=== PATIENT | male | born 1960 | race African-American/Black ===

== ENCOUNTER 2016-06-03 22:23 | Emergency (ER) | payer OTHER ==
[~2016-06-03] VITALS: Ht 182.9 cm; Wt 81.2 kg
[~2016-06-03 22:23] MED LIST: ACET325T21 PO; AMLO1CAP12 PO; AMLO5TAB2 PO; ASPI81TA2 PO; ATOR40TA PO; CEFP200T PEG; COLACE GT; DEXT1DRO8 OU; ESCI20TA10 PO; FLUC100T7 PEG; GUAI100L12 PO; GUAI12003 PO; IPRA3AMP23 IH; LANS30TA6; LOSA50TA6 PO; MAGN400O4 GT; MODA100T18 GT; SCOP1PAT TD; VALS160T3 GT
[2016-06-03 23:19] LABS: POTASSIUM ISTAT 3.7 mmol/L (3.5-5.0)
[2016-06-03 23:30] LABS: BILIRUBIN,URINE NEGATIVE (NEG); GLUCOSE,URINE NEGATIVE (NEG); NITRITE,URINE NEGATIVE (NEG); PH,URINE 7.5; PROTEIN,URINE NEGATIVE (NEG-TRACE)
[2016-06-03 23:36] LABS: BACTERIA,URINE 0 /HPF (0-FEW); SQUAMOUS EPITHELIAL CELL,UR OCC /LPF
[2016-06-03] MEDS ORDERED: CIPR500T94 PO (23:42)
--- NOTE | 2016-06-03 23:42 | PHYS DOC ---
Past Medical History Past Medical History: Constipation, CVA, GERD, High Cholesterol, Hypertension, Seizure, Other Additional Past Medical Histor: cerebvasc disease, resp failure, hydrocephalus , dysphagia,epilepsy Past Surgical History: Other Additional Past Surgical Histo: G-tube, neuro stimulator Alcohol Use: None Drug Use: None Adult General Chief Complaint Chief Complaint: PENIS PROBLEM HPI HPI Patient is a 55 year old male who presents with hematuria. Patient was brought to the emergency department by EMS. Patient has history of CVA with chronic debilitated state. Patient is bedbound. Patient has not had any reported issues with urinating this week, however mother states that the patient had problems with urinary retention last week. The patient is a phasic and unable to provide any history. Mother states the patient has not had any fevers and has not appeared to be in any discomfort. Denies any previous history of hematuria. Patient has not had any recent catheterization. Mother brought patient to the emergency department for evaluation of hematuria. Review of Systems Review of Systems Patient aphasic and unable to provide review of systems Allergies Allergies Allergies Coded Allergies Type Severity Reaction Last Updated Verified No Known Drug Allergies 09/30/15 No Physical Exam Physical Exam Constitutional: Alert, aphasic, appears chronically debilitated. [] HENT: Normocephalic, atraumatic, bilateral external ears normal, oropharynx moist, no oral exudates, nose normal. [] Eyes: PERRLA, EOMI, conjunctiva normal, no discharge. [] Neck: Normal range of motion, no tenderness, supple, no stridor. [] Cardiovascular:Heart rate regular rhythm, no murmur [] Lungs & Thorax: Bilateral breath sounds clear to auscultation [] Abdomen: Bowel sounds normal, soft, left-sided G-tube in place, no abdominal tenderness, no masses, no pulsatile masses. : Small spots of dried gross blood in brief and at urethral meatus, no obvious external injury [] Skin: Warm, dry, no erythema, no rash. [] Back: No tenderness, no CVA tenderness. [] Extremities: No tenderness, no cyanosis, no clubbing, ROM intact, no edema. [] Neurologic: Alert, aphasic, does not follow commands. [] Current Patient Data Vital Signs Vital Signs Date Time Temp Pulse Resp B/P Pulse Ox O2 Delivery O2 Flow Rate FiO2 06/03/16 22:30 97.7 75 18 122/89 93 Room Air 97.7 Lab Values Laboratory Tests Test 06/03/16 23:16 06/03/16 23:21 POC Hemoglobin 16.0g/dL (14-18) POC Hematocrit 47% (37-52) POC Sodium 145mmol/L (135-145) POC Potassium 3.7mmol/L (3.5-5.0) POC Chloride 105mmol/L (98-110) POC Total CO2 24mmol/L (23-32) Anion Gap 20mmol/L (6-14) H POC Blood Urea Nitrogen 17mg/dL (8-26) POC Creatinine 0.9mg/dL (0.5-1.4) Glucose Level 104mg/dL (70-99) H POC Ionized Calcium (Elida) 1.22mmol/L (1.13-1.32) Urine Collection Type U cath Urine Color Yellow Urine Clarity Clear Urine pH 7.5 Urine Specific [place] 1.025 Urine Protein Negativemg/dL (NEG-TRACE) Urine Glucose (UA) Negativemg/dL (NEG) Urine Ketones (Stick) Negativemg/dL (NEG) Urine Blood Small (NEG) Urine Nitrite Negative (NEG) Urine Bilirubin Negative (NEG) Urine Urobilinogen Dipstick 1.0mg/dL (0.2 mg/dL) Urine Leukocyte Esterase Small (NEG) Urine RBC 11-20/HPF (0-2) Urine WBC 1-4/HPF (0-4) Urine Squamous Epithelial Cells Occ/LPF Urine Bacteria 0/HPF (0-FEW) Urine Mucus Slight/LPF Laboratory Tests 06/03/16 23:16 EKG EKG Not performed [] Radiology/Procedures Radiology/Procedures Limited bedside bladder ultrasound performed and interpreted by myself: No pelvic free fluid, bladder volume measured at 177 mL Course & Med Decision Making Course & Med Decision Making Pertinent Labs and Imaging studies reviewed. (See chart for details) Patient's metabolic panel showed normal kidney function and patient's catheter urine showed microscopic hematuria with positive leukoesterase raising concern for active infection. Patient will be started on Cipro for treatment. The patient's source of hematuria is likely distal from the bladder. This will likely resolve with medical treatment, however I did recommend to the patient's mother that the patient would need to follow-up with Dr. Mccauley of urology if hematuria persists in the appointment would need to be made in the next 1-2 weeks. Recommended return to emergency department for any worsening symptoms. Patient's mother voiced understanding and in agreement with treatment plan. Dragon Disclaimer Dragon Disclaimer This electronic medical record was generated, in whole or in part, using a voice recognition dictation system. Departure Departure Impression: Primary Impression: Urinary tract infection Additional Impression: Hematuria Disposition: HOME, SELF-CARE Condition: STABLE Referrals: HERMINIO JACOBS (PCP) CAIO MCCAULEY DO Patient Instructions: Urinary Tract Infection Additional Instructions: Be sure to complete antibiotics as prescribed. If you continue to have blood in your urine, is recommended that you contact Dr. Mccauley of urology for follow-up in 1 to 2 weeks. Return to the emergency department for any worsening symptoms. Scripts Ciprofloxacin Hcl (Cipro)500 Mg Tablet1 Tab PO BID #14 TAB Prov:KHOA SANTIAGO MD 06/03/16 Problem Qualifiers Primary Impression: Urinary tract infection Urinary tract infection type: acute cystitis Hematuria presence: with hematuria Qualified Code: N30.01 - Acute cystitis with hematuria KHOA SANTIAGO MD Jun 03, 2016 23:42
[2016-06-04 00:10] VITALS: BP 116/89
== END 2016-06-04 00:18 | disposition home or self-care (01) ==
LOC: ER 22:23
DX: N39.0 Urinary tract infection, site not specified (principal); E78.00 Pure hypercholesterolemia, unspecified; I10 Essential (primary) hypertension; K21.9 Gastro-esophageal reflux disease without esophagitis; G40.909 Epilepsy, unspecified, not intractable, without status epilepticus; Z86.73 Personal history of transient ischemic attack (TIA), and cerebral infarction without residual deficits
CPT/HCPCS: 80047; 81001; 87086; 99284; 99285

== ENCOUNTER 2016-07-27 10:50 | Emergency (ER) | payer OTHER ==
[~2016-07-27] VITALS: Ht 182.9 cm; Wt 81.2 kg
[~2016-07-27 10:50] MED LIST changes: +CIPR500T94 PO
[2016-07-27] MEDS ORDERED: CONTRAST GIVEN MC PRN (11:45)
--- NOTE | 2016-07-27 11:54 | PHYS DOC ---
Past Medical History Past Medical History: Constipation, CVA, GERD, High Cholesterol, Hypertension, Seizure, Other Additional Past Medical Histor: cerebvasc disease, resp failure, hydrocephalus , dysphagia,epilepsy Past Surgical History: Other Additional Past Surgical Histo: G-tube, neuro stimulator Alcohol Use: None Drug Use: None Adult General Chief Complaint Chief Complaint: GTUBE REPLACEMENT/MALFUNCTION HPI HPI Patient is a 56 year old male presenting to the emergency department for evaluation of concern of G-tube malfunction. Family tried injecting feedings into it this morning and most of it hadn't retrograde flow. There is quite a bit of resistance been trying to push saline throughout and a lot of it does come back out on the bed. Family is unsure when the G-tube was last replaced. Review of Systems Review of Systems Unable to obtain due to medical condition Current Medications Current Medications Current Medications Medications (Trade) Dose Ordered Sig/Vin Start Time Stop Time Status Last Admin Dose Admin Fentanyl Citrate (Fentanyl 2ml Vial) 50 mcg 1X ONCE 07/27/16 14:30 07/27/16 14:31 DC 07/27/16 14:30 50 MCG Info (Do NOT chart on this entry -- for MONITORING) 1 each PRN DAILY PRN 07/27/16 11:45 07/29/16 11:44 Iohexol (Omnipaque 300 Mg/ml) 16 ml 1X ONCE 07/27/16 14:30 07/27/16 14:31 DC 07/27/16 14:29 16 ML Iohexol (Omnipaque 350 Mg/ml) 100 ml 1X ONCE 07/27/16 12:15 07/27/16 12:16 DC 07/27/16 12:15 100 ML Midazolam HCl (Versed) 1 mg 1X ONCE 07/27/16 14:30 07/27/16 14:31 DC 07/27/16 14:30 1 MG Allergies Allergies Allergies Coded Allergies Type Severity Reaction Last Updated Verified No Known Drug Allergies 09/30/15 No Physical Exam Physical Exam Constitutional: Well developed, well nourished, no acute distress, non-toxic appearance. [] Abdomen: G-tube in place with no surrounding infection and no abdominal tenderness. Current Patient Data Vital Signs Vital Signs Date Time Temp Pulse Resp B/P (MAP) Pulse Ox O2 Delivery O2 Flow Rate FiO2 07/27/16 14:32 58 14 93 Room Air 07/27/16 11:28 97.5 97.5 Lab Values Laboratory Tests Test 07/27/16 12:50 White Blood Count 6.6 x10^3/uL (4.0-11.0) Red Blood Count 5.24 x10^6/uL (4.30-5.70) Hemoglobin 15.3 g/dL (13.0-17.5) Hematocrit 44.9 % (39.0-53.0) Mean Corpuscular Volume 86 fL (79-100) Mean Corpuscular Hemoglobin 29 pg (25-35) Mean Corpuscular Hemoglobin Concent 34 g/dL (31-37) Red Cell Distribution Width 14.7 % (11.5-14.5) H Platelet Count 249 x10^3/uL (140-400) Neutrophils (%) (Auto) 50 % (31-73) Lymphocytes (%) (Auto) 33 % (24-48) Monocytes (%) (Auto) 12 % (0-9) H Eosinophils (%) (Auto) 3 % (0-3) Basophils (%) (Auto) 1 % (0-3) Neutrophils # (Auto) 3.3 x10^3uL (1.8-7.7) Lymphocytes # (Auto) 2.2 x10^3/uL (1.0-4.8) Monocytes # (Auto) 0.8 x10^3/uL (0.0-1.1) Eosinophils # (Auto) 0.2 x10^3/uL (0.0-0.7) Basophils # (Auto) 0.0 x10^3/uL (0.0-0.2) Sodium Level 141 mmol/L (136-145) Potassium Level 4.4 mmol/L (3.5-5.1) Chloride Level 105 mmol/L (98-107) Carbon Dioxide Level 31 mmol/L (21-32) Anion Gap 5 (6-14) L Blood Urea Nitrogen 13 mg/dL (8-26) Creatinine 0.9 mg/dL (0.7-1.3) Estimated GFR (Cockcroft-Gault) 106.4 BUN/Creatinine Ratio 14 (6-20) Glucose Level 85 mg/dL (70-99) Calcium Level 8.7 mg/dL (8.5-10.1) Total Bilirubin 0.6 mg/dL (0.2-1.0) Aspartate Amino Transferase (AST) 27 U/L (15-37) Alanine Aminotransferase (ALT) 21 U/L (16-63) Alkaline Phosphatase 136 U/L (46-116) H Total Protein 7.7 g/dL (6.4-8.2) Albumin 3.1 g/dL (3.4-5.0) L Albumin/Globulin Ratio 0.7 (1.0-1.7) L Laboratory Tests 07/27/16 12:50 Laboratory Tests 07/27/16 12:50 EKG EKG [] Radiology/Procedures Radiology/Procedures Examination: Single frontal view of the abdomen History: History of NG tube check Comparison: 06/23/2014 Findings 60 cc of Omnipaque 300 was injected through the G-tube. Contrast is visualized in the stomach just around the balloon of the G-tube with some extension of contrast into the first and second part of the duodenum. The bowel gas pattern appears unremarkable. Tubing projects in the right upper quadrant likely a ventricular peritoneal shunt. Spinal stimulator lead identified. Impression: The injected contrast through the G-tube is identified in the stomach with some extension of contrast into the duodenum. DICTATED and SIGNED BY: KEITH MORENO MD DATE: 07/27/16 1244 Course & Med Decision Making Course & Med Decision Making There is some sort of G-tube malfunction and will likely need replacement so IR was called and they are willing to replace it. Patient discharged in stable condition after G-tube replaced Dragon Disclaimer Dragon Disclaimer This electronic medical record was generated, in whole or in part, using a voice recognition dictation system. Departure Departure Impression: Primary Impression: Gastrostomy tube dysfunction Disposition: 01 HOME, SELF-CARE Condition: GOOD Referrals: HERMINIO JACOBS (PCP) Patient Instructions: Gastrostomy Tube, Adult INDER SANDOVAL DO July 27, 2016 11:54
[2016-07-27] MEDS ORDERED: IOHEXOL 350 MG/ML 100 ML VIAL. IJ ONE (12:15)
--- NOTE | 2016-07-27 12:52 | RAD ---
Examination: Single frontal view of the abdomen History: History of NG tube check Comparison: 06/23/2014 Findings 60 cc of Omnipaque 300 was injected through the G-tube. Contrast is visualized in the stomach just around the balloon of the G-tube with some extension of contrast into the first and second part of the duodenum. The bowel gas pattern appears unremarkable. Tubing projects in the right upper quadrant likely a ventricular peritoneal shunt. Spinal stimulator lead identified. Impression: The injected contrast through the G-tube is identified in the stomach with some extension of contrast into the duodenum.
[2016-07-27 13:06] LABS: BASO % 1 % (0-3); EOS % 3 % (0-3); HEMATOCRIT 44.9 % (39.0-53.0); HEMOGLOBIN 15.3 g/dL (13.0-17.5); LYMPH # 2.2 x10^3/uL (1.0-4.8); LYMPH % 33 % (24-48); MEAN CORPUSCULAR HEMOGLOBIN 29 pg (25-35); MEAN CORPUSCULAR HGB CONC 34 g/dL (31-37); MEAN CORPUSCULAR VOLUME 86 fL (79-100); MONO % 12 % (0-9); NEUT % 50 % (31-73); PLATELET COUNT 249 x10^3/uL (140-400); RED BLOOD COUNT 5.24 x10^6/uL (4.30-5.70); RED CELL DISTRIBUTION WIDTH 14.7 % (11.5-14.5); WHITE BLOOD COUNT 6.6 x10^3/uL (4.0-11.0)
[2016-07-27 13:21] LABS: CALCIUM 8.7 mg/dL (8.5-10.1); CREATININE 0.9 mg/dL (0.7-1.3); GFR 106.4; POTASSIUM 4.4 mmol/L (3.5-5.1)
[2016-07-27 13:24] LABS: ALBUMIN 3.1 g/dL (3.4-5.0); ALBUMIN/GLOBULIN RATIO 0.7 (1.0-1.7); TOTAL BILIRUBIN 0.6 mg/dL (0.2-1.0); TOTAL PROTEIN 7.7 g/dL (6.4-8.2)
[2016-07-27] MEDS ORDERED: IOHEXOL 300 MG/ML 50 ML VIAL. ONE (13:37)
[2016-07-27] MEDS ORDERED: fentaNYL PF VIAL 100 MCG/2 ML VIAL ONE (14:12)
[2016-07-27] MEDS ORDERED: MIDAZOLAM HCL/PF 2 MG/2 ML VIAL. ONE (14:12)
[2016-07-27 14:18] VITALS: BP 114/58
[2016-07-27 14:23] VITALS: BP 117/84
[2016-07-27] MEDS ORDERED: fentaNYL PF VIAL 100 MCG/2 ML VIAL IV ONE (14:30)
[2016-07-27] MEDS ORDERED: IOHEXOL 300 MG/ML 50 ML VIAL. IART ONE (14:30)
[2016-07-27] MEDS ORDERED: MIDAZOLAM HCL/PF 2 MG/2 ML VIAL. IV ONE (14:30)
[2016-07-27 14:32] VITALS: BP 108/81
--- NOTE | 2016-07-27 14:42 | PDOC ---
MODERATE SEDATION ASSESSMENT RISKS/ALTERNATIVES Risks/Alternatives Risks and alternatives of this type of sedation and procedure discussed with: RISK/ALTERNATIVES: Sig. Other (Mother) H & P ON CHART H & P H & P on chart and reviewed for co-morbid conditions and appropriate labs. H&P ON CHART: Yes STATUS PREG STATUS ASSESSED: N/A MEDS/ALLERGIES REVIEWED Meds/Allergies Reviewed Medications and Allergies including time and route of recently administered narcotics and sedatives. MEDS/ALLERGIES REVIEWED: Yes ASA RATING ASA RATING: III AIRWAY ASSESSMENT Airway Assessment Airway patency, oral function limitations, presence of caps, crowns, dentures, partials, and ability to extend neck assessed. AIRWAY ASSESSMENT: Yes MALLAMPATI SCORE MALLAMPATI SCORE: II PRE-SEDATION ASSESSMENT PRE-SEDATION ASSESSMENT: Yes NEIDA WISE MD July 27, 2016 14:42
--- NOTE | 2016-07-27 14:43 | PDOC1 ---
IR Pre-Procedure H&P-Dr. Pierce H&P Update No significant change from Dr Haider ED H&P done earlier today. Nonfunctioning G-tube. Fluoro guided G-tube replacement requested.. NEIDA WISE MD July 27, 2016 14:43
--- NOTE | 2016-07-27 14:47 | PDOC ---
Exam Project Management Instructor Project Management Instructor Orin Electro Mechanical Solar Technician Electro Mechanical Solar Technician V [place] Pre-Procedure Diagnosis Pre-Procedure Diagnosis 56 YO male s/p CVA, with nonfunctioning G-tube. Post-Procedure Diagnosis Post-Procedure Diagnosis Same Procedure Performed Procedure Performed Fluoro guided G-tube replacement Type of Anesthesia Type of Anesthesia Mod sedation Estimated Blood Loss EBL: Trace Specimens Specimans 24F GEMMA G-tube removed. Drain/Tubes Drains/Tubes 24F GEMMA G-tube inserted Condition of Patient Condition of Patient No change. No apparent complication. Disposition Disposition From IR return to ED for recovery. Discharge from ED with Mother, if no problems. OK to use G-tube. Full report to follow. NEIDA WISE MD July 27, 2016 14:47
[2016-07-27 15:30] VITALS: BP 122/89
--- NOTE | 2016-07-28 06:35 | RAD ---
Fluoroscopy guided gastrostomy tube replacement Indication: 56-year-old male status post CVA, with poorly functioning G-tube. Image guided G-tube replacement has been requested. Anesthesia: 21 minutes moderate sedation was provided utilizing a total of 1 mg Versed and 50 mcg fentanyl, IV. The patient was appropriately monitored by a qualified independent observer throughout the time of moderate sedation. Contrast material: 16 cc Omnipaque 300 Fluoroscopy time: 3.9 minutes. 3 fluoroscopic spot images were obtained. Kerma-area Product: 18 Gycm2 Procedure: Informed consent was obtained from the patient's mother. He was placed supine on the angiography table. Left upper quadrant of abdomen was prepped and draped in the usual sterile fashion. Moderate sedation was provided with IV Versed and fentanyl. A small amount of Omnipaque 300 was injected through the patient's indwelling poorly functioning gastrostomy tube. A fluoroscopic spot image was obtained, which documented intraluminal position of the G-tube tip. Using aseptic technique, a road runner guidewire was advanced through the G-tube and was coiled within proximal stomach. Retention balloon was deflated, and the indwelling, poorly functioning 24 [place] GEMMA G-tube was removed over the Roadrunner wire. An 8 mm x 40 mm conquest METAL TANK BUILDER balloon was advanced over the Roadrunner wire and was utilized to perform balloon dilatation of the percutaneous tract to a peak pressure of 10 gricelda. The METAL TANK BUILDER balloon was then deflated and removed. A new 24 [place] GEMMA G-tube was then advanced over the Roadrunner wire into gastric lumen. Intraluminal position of the new G-tube tip was confirmed with contrast injection and fluoroscopic spot image. The retention balloon was inflated with 8 cc sterile water. A sterile dressing was applied. Patient tolerated the procedure well without apparent complication. Impression: Successful, uneventful fluoroscopy guided gastrostomy tube replacement, as described. A new 24 [place] GEMMA G-tube lies in good position, and is ready for immediate use.
== END 2016-07-27 16:00 | disposition home or self-care (01) ==
LOC: ER 10:50
DX: K94.23 Gastrostomy malfunction (principal); E78.00 Pure hypercholesterolemia, unspecified; G40.909 Epilepsy, unspecified, not intractable, without status epilepticus; I10 Essential (primary) hypertension; K21.9 Gastro-esophageal reflux disease without esophagitis; Z86.73 Personal history of transient ischemic attack (TIA), and cerebral infarction without residual deficits; Y83.8 Other surgical procedures as the cause of abnormal reaction of the patient, or of later complication, without mention of misadventure at the time of the procedure; Y92.89 Other specified places as the place of occurrence of the external cause
CPT/HCPCS: 36415; 49450; 74000; 80053; 85027; 96374; 96375; 99285; C1725; C1769; J2250; J3010; Q9967

== ENCOUNTER 2018-05-29 20:56 | Inpatient (IN) | payer OTHER ==
[~2018-05-29] VITALS: Ht 182.9 cm; Wt 78.0 kg
[~2018-05-29 20:56] MED LIST changes: +AMLO5TAB10 PO; -AMLO5TAB2 PO; +ASPI-630 PO; -ASPI81TA2 PO; -ESCI20TA10 PO; +LEXAPRO20 MG PO; +LOSA-73 PO; -LOSA50TA6 PO; -MAGN400O4 GT; +MAGN400O7 GT; -MODA100T18 GT; +MODA100T26 GT; +OMEPRAZOLE; -SCOP1PAT TD; +SCOP1PAT11 TD; +SCOP1PAT11 TP
[2018-05-29] MEDS ORDERED: IV NORMAL SALINE 1000ML BAG 1,000 ML IV SCH (22:00)
[2018-05-29] MEDS ORDERED: IBUPROFEN 100 MG/5 ML ORAL.SUSP. PO ONE (22:00)
[2018-05-29 22:30] LABS: BASO % 0 % (0-3); EOS % 0 % (0-3); HEMATOCRIT 46.6 % (39.0-53.0); HEMOGLOBIN 15.1 g/dL (13.0-17.5); LYMPH # 1.4 x10^3/uL (1.0-4.8); LYMPH % 9 % (24-48); MEAN CORPUSCULAR HEMOGLOBIN 28 pg (25-35); MEAN CORPUSCULAR HGB CONC 32 g/dL (31-37); MEAN CORPUSCULAR VOLUME 87 fL (79-100); MONO # 1.4 x10^3/uL (0.0-1.1); MONO % 9 % (0-9); NEUT # 12.8 x10^3uL (1.8-7.7); NEUT % 82 % (31-73); PLATELET COUNT 269 x10^3/uL (140-400); RED BLOOD COUNT 5.33 x10^6/uL (4.30-5.70); RED CELL DISTRIBUTION WIDTH 14.4 % (11.5-14.5); WHITE BLOOD COUNT 15.6 x10^3/uL (4.0-11.0)
[2018-05-29 22:34] LABS: INFLUENZA A PATIENT NEGATIVE (NEGATIVE); INFLUENZA B PATIENT NEGATIVE (NEGATIVE)
[2018-05-29 22:39] LABS: CALCIUM 9.4 mg/dL (8.5-10.1); CREATININE 1.2 mg/dL (0.7-1.3); GFR 76.1; POTASSIUM 3.8 mmol/L (3.5-5.1)
[2018-05-29 22:54] LABS: ALBUMIN 3.2 g/dL (3.4-5.0); ALBUMIN/GLOBULIN RATIO 0.6 (1.0-1.7); TOTAL BILIRUBIN 1.1 mg/dL (0.2-1.0); TOTAL PROTEIN 8.5 g/dL (6.4-8.2)
[2018-05-29 22:55] LABS: % BASOS 1 % (0-3); % LYMPHS 12 % (24-48); % MONOS 8 % (0-10); % SEGS 79 % (35-66); PLT ESTIMATE ADEQUATE (ADEQUATE); TOXIC GRANULATION SLIGHT
[2018-05-30] MEDS ORDERED: IV NORMAL SALINE 1000ML BAG 1,000 ML IV ONE (01:00)
[2018-05-30 02:12] LABS: BILIRUBIN,URINE NEGATIVE (NEG); CLARITY,URINE CLEAR; COLOR,URINE YELLOW; NITRITE,URINE NEGATIVE (NEG); PROTEIN,URINE NEGATIVE (NEG-TRACE)
[2018-05-30 02:25] LABS: BACTERIA,URINE 0 /HPF (0-FEW)
[2018-05-30 02:26] LABS: AMORPHOUS SEDIMENT,UR PRESENT /HPF
--- NOTE | 2018-05-30 02:27 | PHYS DOC ---
Past Medical History Past Medical History: Constipation, CVA, GERD, High Cholesterol, Hypertension, Seizure, Other Additional Past Medical Histor: cerebvasc disease, resp failure, hydrocephalus , dysphagia,epilepsy Past Surgical History: Other Additional Past Surgical Histo: G-tube, neuro stimulator (BACLOFEN PUMP) Alcohol Use: None Drug Use: None Adult General Chief Complaint Chief Complaint: FEVER HPI HPI Patient is a 57-year-old male who presents with report of high fever at home that had been 106.1 earlier in the evening. Patient was given Tylenol and mother indicates the temperature had come down to a little above 98. She states that she had checked it again a few hours later and temperature was back up to 102. She decided that she better bring the patient in. Patient mother states that patient has had no mental status changes. Review of Systems Review of Systems Constitutional: Positive fever and chills [] Respiratory: Positive cough without shortness of breath [] Cardiovascular: No additional information not addressed in HPI [] GI: No reported vomiting or diarrhea [] Integument: Denies rash or skin lesions [] Neurologic: No reported headache[] Unable to fully assess review of systems as patient is post stroke and nonverbal in ED. Current Medications Current Medications Current Medications Medications (Trade) Dose Ordered Sig/Vin Start Time Stop Time Status Last Admin Dose Admin Ibuprofen (Children'S Motrin) 500 mg 1X ONCE 05/29/18 22:00 05/29/18 22:01 DC 05/29/18 22:04 500 MG Sodium Chloride 1,000 ml @ 1,000 mls/hr 1X ONCE 05/30/18 01:00 05/30/18 01:59 DC 05/30/18 00:27 1,000 MLS/HR Allergies Allergies Allergies Coded Allergies Type Severity Reaction Last Updated Verified No Known Drug Allergies 09/30/15 No Physical Exam Physical Exam Constitutional: Well developed, well nourished, no acute distress, non-toxic appearance. [] HENT: Normocephalic, atraumatic, bilateral external ears normal, oropharynx dry , no oral exudates, nose normal. [] Eyes: PERRLA, EOMI, conjunctiva normal, no discharge. [] Neck: Normal range of motion, no tenderness, supple, no meningismus. [] Cardiovascular: Mildly tachycardic rate with regular rhythm[] Lungs & Thorax: Bilateral breath sounds clear to auscultation [] Abdomen: Bowel sounds normal, soft, no tenderness. [] Skin: Warm, dry, no erythema, no rash. [] Extremities: No tenderness, no cyanosis, no clubbing, ROM intact, no edema. [] Neurologic: Awake and alert. [] Current Patient Data Vital Signs Vital Signs Date Time Temp Pulse Resp B/P (MAP) Pulse Ox O2 Delivery O2 Flow Rate FiO2 05/30/18 00:51 99.9 99.9 05/29/18 23:59 101 18 103/82 (89) 94 Room Air Lab Values Laboratory Tests Test 05/29/18 22:10 05/30/18 01:50 White Blood Count 15.6 x10^3/uL (4.0-11.0) H Red Blood Count 5.33 x10^6/uL (4.30-5.70) Hemoglobin 15.1 g/dL (13.0-17.5) Hematocrit 46.6 % (39.0-53.0) Mean Corpuscular Volume 87 fL (79-100) Mean Corpuscular Hemoglobin 28 pg (25-35) Mean Corpuscular Hemoglobin Concent 32 g/dL (31-37) Red Cell Distribution Width 14.4 % (11.5-14.5) Platelet Count 269 x10^3/uL (140-400) Neutrophils (%) (Auto) 82 % (31-73) H Lymphocytes (%) (Auto) 9 % (24-48) L Monocytes (%) (Auto) 9 % (0-9) Eosinophils (%) (Auto) 0 % (0-3) Basophils (%) (Auto) 0 % (0-3) Neutrophils # (Auto) 12.8 x10^3uL (1.8-7.7) H Lymphocytes # (Auto) 1.4 x10^3/uL (1.0-4.8) Monocytes # (Auto) 1.4 x10^3/uL (0.0-1.1) H Eosinophils # (Auto) 0.0 x10^3/uL (0.0-0.7) Basophils # (Auto) 0.0 x10^3/uL (0.0-0.2) Segmented Neutrophils % 79 % (35-66) H Lymphocytes % 12 % (24-48) L Monocytes % 8 % (0-10) Basophils % 1 % (0-3) Toxic Granulation Slight Platelet Estimate Adequate (ADEQUATE) Sodium Level 140 mmol/L (136-145) Potassium Level 3.8 mmol/L (3.5-5.1) Chloride Level 99 mmol/L (98-107) Carbon Dioxide Level 30 mmol/L (21-32) Anion Gap 11 (6-14) Blood Urea Nitrogen 14 mg/dL (8-26) Creatinine 1.2 mg/dL (0.7-1.3) Estimated GFR (Cockcroft-Gault) 76.1 BUN/Creatinine Ratio 12 (6-20) Glucose Level 106 mg/dL (70-99) H Lactic Acid Level 2.1 mmol/L (0.4-2.0) H Calcium Level 9.4 mg/dL (8.5-10.1) Total Bilirubin 1.1 mg/dL (0.2-1.0) H Aspartate Amino Transferase (AST) 20 U/L (15-37) Alanine Aminotransferase (ALT) 19 U/L (16-63) Alkaline Phosphatase 123 U/L (46-116) H Total Protein 8.5 g/dL (6.4-8.2) H Albumin 3.2 g/dL (3.4-5.0) L Albumin/Globulin Ratio 0.6 (1.0-1.7) L Influenza Type A Antigen Negative (NEGATIVE) Influenza Type B Antigen Negative (NEGATIVE) Urine Collection Type Unknown Urine Color Yellow Urine Clarity Clear Urine pH 6.0 Urine Specific [place] 1.010 Urine Protein Negative mg/dL (NEG-TRACE) Urine Glucose (UA) Negative mg/dL (NEG) Urine Ketones (Stick) Negative mg/dL (NEG) Urine Blood Moderate (NEG) Urine Nitrite Negative (NEG) Urine Bilirubin Negative (NEG) Urine Urobilinogen Dipstick 1.0 mg/dL (0.2 mg/dL) Urine Leukocyte Esterase Small (NEG) Urine RBC 3-5 /HPF (0-2) Urine WBC 5-10 /HPF (0-4) Urine Squamous Epithelial Cells None /LPF Urine Amorphous Sediment Present /HPF Urine Bacteria 0 /HPF (0-FEW) Laboratory Tests 05/29/18 22:10 Laboratory Tests 05/29/18 22:10 EKG EKG [] Radiology/Procedures Radiology/Procedures [] Impressions: Chest x-ray demonstrates no definite acute abnormalities. Course & Med Decision Making Course & Med Decision Making Pertinent Labs and Imaging studies reviewed. (See chart for details) [] Dragon Disclaimer Dragon Disclaimer This electronic medical record was generated, in whole or in part, using a voice recognition dictation system. Departure Departure Impression: Primary Impression: Systemic inflammatory response syndrome (SIRS) Additional Impression: Fever 106 degrees F or over Disposition: 09 ADMITTED INPATIENT Admitting Physician: Maci Mckoy Condition: IMPROVED Referrals: HERMINIO JACOBS (PCP) Problem Qualifiers STEVENSON MONTANA Jr. DO May 30, 2018 02:27
[2018-05-30] MEDS ORDERED: VANCOMYCIN 1GM IVPB FOR OMNI 250 ML IV ONE (03:00)
[2018-05-30] MEDS ORDERED: ONDANSETRON PF 4 MG/2 ML VIAL. IV PRN (03:00)
[2018-05-30] MEDS ORDERED: ACETAMINOPHEN 325 MG TABLET. PO PRN (03:00)
[2018-05-30] MEDS ORDERED: PIPERACILLIN/TAZOBACTAM 3.375 GM in IV NORMAL SALINE 50ML 50 ML IV ONE (03:15)
[2018-05-30] MEDS ORDERED: VANCOMYCIN 1.75 GM in IV NORMAL SALINE 500ML BAG 500 ML IV ONE (04:00)
[2018-05-30] MEDS ORDERED: AMLO10TA8 PO (04:07)
[2018-05-30] MEDS ORDERED: LOSA100T14 PO (04:07)
[2018-05-30 04:17] VITALS: BP 87/64
[2018-05-30] MEDS: VANCOMYCIN PER PHARMACY MC PRN (04:17)
--- NOTE | 2018-05-30 04:19 | NUR ---
Pharmacy Vancomycin Dosing Note S:Consulted to monitor and dose vancomycin started 05/30/18. O:SHELLEY POLANCO is a 57 year old M with FEVER, SIRS . Height: 6 feet, 0 inches Weight: 70.693651 kg [place] Body Weight: 77.60 Adjusted Body Weight: 74.64 Dosing Weight: Actual Other Antibiotics: LABS: Last BUN: 14 Last Creatinine: 1.2 Creatinine Clearance: 69 mL/min Last WBC: 15.6 Last Procalcitonin: Tmax (past 24 hours): 101.9 Microbiology: I/O: Drug Levels: Last level: on at Last dose given 05/30/18 at 0400 Vancomycin Dosing: Loading Dose: 1750 mg x1 Dosing Weight: Actual Target Trough: 10-20 A: Based on: WT AND CRCL P: 1. Begin Vancomycin 1000 mg IV q12h 2. Follow up Trough level on 05/31/18 at 1530 3. Pharmacy will continue to monitor, follow and adjust therapy as needed. HUDSON JOHNS RPH, 05/30/18 0419 Signed: 05/30/18 at 418 by HUDSON JOHNS RPH PHA
[2018-05-30] MEDS: IV NORMAL SALINE 1000ML BAG 1,000 ML IV SCH ×3 (06:22→21:58)
[2018-05-30 07:00] VITALS: BP 90/52
--- NOTE | 2018-05-30 07:50 | PDOC1 ---
History and Physical Date of Admission Date of Admission DATE: 05/30/18 TIME: 07:50 Identification/Chief Complaint Chief Complaint Fever Source Source: Caregiver, Chart review History of Present Illness History of Present Illness Mr Georges is a 57-year-old male w/ PMHx prior CVA, dysphagia s/p PEG, seizures, non-verbal who presents with report of high fever at home that had been 106.1 earlier in the evening per his caregiver. Patient was given Tylenol and mother indicates the temperature had come down to a little above 98. She states that she had checked it again a few hours later and temperature was back up to 102. She decided that she better bring the patient in. Patient mother states that patient has had no mental status changes. Had fever 101.9F here, leukocytosis and negative rapid flu and negative strep A rapid Past Medical History Cardiovascular: HTN, Hyperlipidemia CENTRAL NERVOUS SYSTEM: CVA Past Surgical History Past Surgical History: Other Family History Family History: Hypertension Social History ALCOHOL: none Drugs: None Current Problem List Problem List Problems Medical Problems: (1) Fever 106 degrees F or over Status: Acute (2) Systemic inflammatory response syndrome (SIRS) Status: Acute Current Medications Current Medications Current Medications Sodium Chloride 1,000 ml @ 1,000 mls/hr Q1H IV Last administered on 05/29/18at 22:04; Start 05/29/18 at 22:00; Stop 05/29/18 at 22:59; Status DC Ibuprofen (Children'S Motrin) 500 mg 1X ONCE PO Last administered on at 22:04; Start 05/29/18 at 22:00; Stop 05/29/18 at 22:01; Status DC Sodium Chloride 1,000 ml @ 1,000 mls/hr 1X ONCE IV Last administered on at 00:27; Start 05/30/18 at 01:00; Stop 05/30/18 at 01:59; Status DC Vancomycin HCl 250 ml @ 250 mls/hr 1X ONCE IV ; Start 05/30/18 at 03:00; Stop 05/30/18 at 03:59; Status UNV Piperacillin Sod/ Tazobactam Sod 3.375 gm/Sodium Chloride 50 ml @ 100 mls/hr 1X ONCE IV Last administered on 05/30/18at 03:11; Start 05/30/18 at 03:15; Stop 05/30/18 at 03:44; Status DC Ondansetron HCl (Zofran) 4 mg PRN Q8HRS PRN IV NAUSEA/VOMITING 1ST CHOICE; Start 05/30/18 at 03:00; Stop 05/31/18 at 02:59 Sodium Chloride 1,000 ml @ 100 mls/hr Q10H IV Last administered on 05/30/18at 06:22; Start 05/30/18 at 03:00; Stop 05/31/18 at 02:59 Acetaminophen (Tylenol) 650 mg PRN Q4HRS PRN PO FEVER; Start 05/30/18 at 03:00 ; Stop 05/31/18 at 02:59 Vancomycin HCl 1.75 gm/Sodium Chloride 500 ml @ 250 mls/hr 1X ONCE IV Last administered on 05/30/18at 03:56; Start 05/30/18 at 04:00; Stop 05/30/18 at 05:59 ; Status DC Vancomycin HCl (Vanco Per Pharmacy) 1 each PRN DAILY PRN MC SEE COMMENTS Last administered on 05/30/18at 04:17; Start 05/30/18 at 03:00 Vancomycin HCl 1 gm/Sodium Chloride 250 ml @ 250 mls/hr Q12H IV ; Start at 16:00 Vancomycin HCl (Vancomycin Trough Level) 1 each 1X ONCE MC ; Start 05/31/18 at 15:30; Stop 05/31/18 at 15:31 Active Scripts Active Reported Amlodipine Besylate 10 Mg Tablet 10 Mg PO DAILY Losartan Potassium 100 Mg Tablet 1 Tab PO PRN DAILY PRN Transderm-Scop (Scopolamine) 1 Each Patch.td72 1 Patch TP Q3DAYS Provigil (Modafinil) 100 Mg Tablet 100 Mg GT DAILY Prevacid (Lansoprazole) 30 Mg Tab.rap.dr 30 Mg DAILY Milk Of Magnesia (Magnesium Hydroxide) 400 Mg/5 Ml Oral.susp 400 Mg GT PRN DAILY PRN Lipitor (Atorvastatin Calcium) 40 Mg Tablet 40 Mg PO HS Lexapro (Escitalopram Oxalate) 20 Mg Tablet 20 Mg PO DAILY Duoneb 0.5 Mg-3 Mg/3 Ml Soln (Ipratropium/Albuterol Sulfate) 3 Ml Ampul.neb 3 Ml IH QIDPRN PRN [colace syrup] 25 Ml GT PRN BID PRN Aspirin 81 Mg Tab.chew 81 Mg PO DAILY Artificial Tears Drops (Dextran 70/Hypromellose/Pf) 1 Each Droperette 1 Each OU PRN Q4HRS PRN Allergies Allergies: Coded Allergies: No Known Drug Allergies (Unverified , 09/30/15) ROS Review of System Unable to obtain 2/2 non-verbal status Physical Exam General: Cooperative, No acute distress HEENT: Atraumatic, PERRLA, EOMI, Mucous membr. moist/pink Lungs: Clear to auscultation, Normal air movement Heart: S1S2, RRR Abdomen: Normal bowel sounds, Soft, No tenderness, No hepatosplenomegaly, No masses Rectal Exam: not examined Extremities: No clubbing, No cyanosis, No edema, Normal pulses, No tenderness/ swelling Skin: No rashes, No breakdown, No significant lesion Neuro: Other (Right weakness and hyper-reflexia) Vitals Vitals Vital Signs Date Time Temp Pulse Resp B/P (MAP) Pulse Ox O2 Delivery O2 Flow Rate FiO2 05/30/18 04:17 98.4 74 16 87/64 (72) 94 Room Air 98.4 Labs Labs Laboratory Tests Test 05/29/18 22:10 05/30/18 01:50 05/30/18 05:25 White Blood Count 15.6 x10^3/uL (4.0-11.0) Red Blood Count 5.33 x10^6/uL (4.30-5.70) Hemoglobin 15.1 g/dL (13.0-17.5) Hematocrit 46.6 % (39.0-53.0) Mean Corpuscular Volume 87 fL (79-100) Mean Corpuscular Hemoglobin 28 pg (25-35) Mean Corpuscular Hemoglobin Concent 32 g/dL (31-37) Red Cell Distribution Width 14.4 % (11.5-14.5) Platelet Count 269 x10^3/uL (140-400) Neutrophils (%) (Auto) 82 % (31-73) Lymphocytes (%) (Auto) 9 % (24-48) Monocytes (%) (Auto) 9 % (0-9) Eosinophils (%) (Auto) 0 % (0-3) Basophils (%) (Auto) 0 % (0-3) Neutrophils # (Auto) 12.8 x10^3uL (1.8-7.7) Lymphocytes # (Auto) 1.4 x10^3/uL (1.0-4.8) Monocytes # (Auto) 1.4 x10^3/uL (0.0-1.1) Eosinophils # (Auto) 0.0 x10^3/uL (0.0-0.7) Basophils # (Auto) 0.0 x10^3/uL (0.0-0.2) Segmented Neutrophils % 79 % (35-66) Lymphocytes % 12 % (24-48) Monocytes % 8 % (0-10) Basophils % 1 % (0-3) Toxic Granulation Slight Platelet Estimate Adequate (ADEQUATE) Sodium Level 140 mmol/L (136-145) Potassium Level 3.8 mmol/L (3.5-5.1) Chloride Level 99 mmol/L (98-107) Carbon Dioxide Level 30 mmol/L (21-32) Anion Gap 11 (6-14) Blood Urea Nitrogen 14 mg/dL (8-26) Creatinine 1.2 mg/dL (0.7-1.3) Estimated GFR (Cockcroft-Gault) 76.1 BUN/Creatinine Ratio 12 (6-20) Glucose Level 106 mg/dL (70-99) Lactic Acid Level 2.1 mmol/L (0.4-2.0) 1.0 mmol/L (0.4-2.0) Calcium Level 9.4 mg/dL (8.5-10.1) Total Bilirubin 1.1 mg/dL (0.2-1.0) Aspartate Amino Transf (AST/SGOT) 20 U/L (15-37) Alanine Aminotransferase (ALT/SGPT) 19 U/L (16-63) Alkaline Phosphatase 123 U/L (46-116) Total Protein 8.5 g/dL (6.4-8.2) Albumin 3.2 g/dL (3.4-5.0) Albumin/Globulin Ratio 0.6 (1.0-1.7) Influenza Type A Antigen Negative (NEGATIVE) Influenza Type B Antigen Negative (NEGATIVE) Urine Collection Type Unknown Urine Color Yellow Urine Clarity Clear Urine pH 6.0 Urine Specific [place] 1.010 Urine Protein Negative mg/dL (NEG-TRACE) Urine Glucose (UA) Negative mg/dL (NEG) Urine Ketones (Stick) Negative mg/dL (NEG) Urine Blood Moderate (NEG) Urine Nitrite Negative (NEG) Urine Bilirubin Negative (NEG) Urine Urobilinogen Dipstick 1.0 mg/dL (0.2 mg/dL) Urine Leukocyte Esterase Small (NEG) Urine RBC 3-5 /HPF (0-2) Urine WBC 5-10 /HPF (0-4) Urine Squamous Epithelial Cells None /LPF Urine Amorphous Sediment Present /HPF Urine Bacteria 0 /HPF (0-FEW) Laboratory Tests Test 05/29/18 22:10 05/30/18 01:50 05/30/18 05:25 White Blood Count 15.6 x10^3/uL (4.0-11.0) Red Blood Count 5.33 x10^6/uL (4.30-5.70) Hemoglobin 15.1 g/dL (13.0-17.5) Hematocrit 46.6 % (39.0-53.0) Mean Corpuscular Volume 87 fL (79-100) Mean Corpuscular Hemoglobin 28 pg (25-35) Mean Corpuscular Hemoglobin Concent 32 g/dL (31-37) Red Cell Distribution Width 14.4 % (11.5-14.5) Platelet Count 269 x10^3/uL (140-400) Neutrophils (%) (Auto) 82 % (31-73) Lymphocytes (%) (Auto) 9 % (24-48) Monocytes (%) (Auto) 9 % (0-9) Eosinophils (%) (Auto) 0 % (0-3) Basophils (%) (Auto) 0 % (0-3) Neutrophils # (Auto) 12.8 x10^3uL (1.8-7.7) Lymphocytes # (Auto) 1.4 x10^3/uL (1.0-4.8) Monocytes # (Auto) 1.4 x10^3/uL (0.0-1.1) Eosinophils # (Auto) 0.0 x10^3/uL (0.0-0.7) Basophils # (Auto) 0.0 x10^3/uL (0.0-0.2) Segmented Neutrophils % 79 % (35-66) Lymphocytes % 12 % (24-48) Monocytes % 8 % (0-10) Basophils % 1 % (0-3) Toxic Granulation Slight Platelet Estimate Adequate (ADEQUATE) Sodium Level 140 mmol/L (136-145) Potassium Level 3.8 mmol/L (3.5-5.1) Chloride Level 99 mmol/L (98-107) Carbon Dioxide Level 30 mmol/L (21-32) Anion Gap 11 (6-14) Blood Urea Nitrogen 14 mg/dL (8-26) Creatinine 1.2 mg/dL (0.7-1.3) Estimated GFR (Cockcroft-Gault) 76.1 BUN/Creatinine Ratio 12 (6-20) Glucose Level 106 mg/dL (70-99) Lactic Acid Level 2.1 mmol/L (0.4-2.0) 1.0 mmol/L (0.4-2.0) Calcium Level 9.4 mg/dL (8.5-10.1) Total Bilirubin 1.1 mg/dL (0.2-1.0) Aspartate Amino Transf (AST/SGOT) 20 U/L (15-37) Alanine Aminotransferase (ALT/SGPT) 19 U/L (16-63) Alkaline Phosphatase 123 U/L (46-116) Total Protein 8.5 g/dL (6.4-8.2) Albumin 3.2 g/dL (3.4-5.0) Albumin/Globulin Ratio 0.6 (1.0-1.7) Influenza Type A Antigen Negative (NEGATIVE) Influenza Type B Antigen Negative (NEGATIVE) Urine Collection Type Unknown Urine Color Yellow Urine Clarity Clear Urine pH 6.0 Urine Specific [place] 1.010 Urine Protein Negative mg/dL (NEG-TRACE) Urine Glucose (UA) Negative mg/dL (NEG) Urine Ketones (Stick) Negative mg/dL (NEG) Urine Blood Moderate (NEG) Urine Nitrite Negative (NEG) Urine Bilirubin Negative (NEG) Urine Urobilinogen Dipstick 1.0 mg/dL (0.2 mg/dL) Urine Leukocyte Esterase Small (NEG) Urine RBC 3-5 /HPF (0-2) Urine WBC 5-10 /HPF (0-4) Urine Squamous Epithelial Cells None /LPF Urine Amorphous Sediment Present /HPF Urine Bacteria 0 /HPF (0-FEW) VTE Prophylaxis Ordered VTE Prophylaxis Devices: Yes VTE Pharmacological Prophylaxi: Yes Assessment/Plan Assessment/Plan A/P: Fever - sepsis of unclear etiology at this point. F/u blood cultures. Empiric antibiotics given. Consult ID h/o CVA with rt paralysis. OT for repositioning with contractures htn - cont meds hld - cont meds h/o seizure - not on anti-epileptics constipation - will cont bowel regimen aphasia - nods yes and no dysphagia with PEG - cont tube feeds hydrocephalus - s/p HAND STONECUTTER shunt, appeared to be functioning well with peritoneal drain patent BECKY, vasomotor - will give gentle IVF with h/o ckd2 Plan: vanc and zosyn check cultures check procal supportive care FEN - TF PPX - SCDs, heparin FULL CODE Inpatient for fever of uncertain origin. At least 2 midnights inpatient DENIA RENDON MD May 30, 2018 07:50
--- NOTE | 2018-05-30 08:25 | RAD ---
Indication:FEVER TECHNIQUE:Portable AP chest X-ray COMPARISON:CT chest from 02/28/2018 FINDINGS: Heart is normal in size. Calcified left mediastinal lymph nodes are seen. No pneumothorax or pleural effusion. Visualized bony thorax is within normal limits. IMPRESSION: No acute pulmonary process. Electronically signed by: Pool Willis DO (05/30/2018 8:22 AM) [facility]
--- NOTE | 2018-05-30 10:52 | PDOC ---
Infectious Disease Note Vital Sign Vital Signs Vital Signs Date Time Temp Pulse Resp B/P (MAP) Pulse Ox O2 Delivery O2 Flow Rate FiO2 05/30/18 07:00 96.1 64 14 90/52 (65) 92 Room Air 96.1 Labs Lab Laboratory Tests Test 05/29/18 22:10 05/30/18 01:50 05/30/18 05:25 White Blood Count 15.6 x10^3/uL (4.0-11.0) Red Blood Count 5.33 x10^6/uL (4.30-5.70) Hemoglobin 15.1 g/dL (13.0-17.5) Hematocrit 46.6 % (39.0-53.0) Mean Corpuscular Volume 87 fL (79-100) Mean Corpuscular Hemoglobin 28 pg (25-35) Mean Corpuscular Hemoglobin Concent 32 g/dL (31-37) Red Cell Distribution Width 14.4 % (11.5-14.5) Platelet Count 269 x10^3/uL (140-400) Neutrophils (%) (Auto) 82 % (31-73) Lymphocytes (%) (Auto) 9 % (24-48) Monocytes (%) (Auto) 9 % (0-9) Eosinophils (%) (Auto) 0 % (0-3) Basophils (%) (Auto) 0 % (0-3) Neutrophils # (Auto) 12.8 x10^3uL (1.8-7.7) Lymphocytes # (Auto) 1.4 x10^3/uL (1.0-4.8) Monocytes # (Auto) 1.4 x10^3/uL (0.0-1.1) Eosinophils # (Auto) 0.0 x10^3/uL (0.0-0.7) Basophils # (Auto) 0.0 x10^3/uL (0.0-0.2) Segmented Neutrophils % 79 % (35-66) Lymphocytes % 12 % (24-48) Monocytes % 8 % (0-10) Basophils % 1 % (0-3) Toxic Granulation Slight Platelet Estimate Adequate (ADEQUATE) Sodium Level 140 mmol/L (136-145) Potassium Level 3.8 mmol/L (3.5-5.1) Chloride Level 99 mmol/L (98-107) Carbon Dioxide Level 30 mmol/L (21-32) Anion Gap 11 (6-14) Blood Urea Nitrogen 14 mg/dL (8-26) Creatinine 1.2 mg/dL (0.7-1.3) Estimated GFR (Cockcroft-Gault) 76.1 BUN/Creatinine Ratio 12 (6-20) Glucose Level 106 mg/dL (70-99) Lactic Acid Level 2.1 mmol/L (0.4-2.0) 1.0 mmol/L (0.4-2.0) Calcium Level 9.4 mg/dL (8.5-10.1) Total Bilirubin 1.1 mg/dL (0.2-1.0) Aspartate Amino Transf (AST/SGOT) 20 U/L (15-37) Alanine Aminotransferase (ALT/SGPT) 19 U/L (16-63) Alkaline Phosphatase 123 U/L (46-116) Total Protein 8.5 g/dL (6.4-8.2) Albumin 3.2 g/dL (3.4-5.0) Albumin/Globulin Ratio 0.6 (1.0-1.7) Influenza Type A Antigen Negative (NEGATIVE) Influenza Type B Antigen Negative (NEGATIVE) Group A Streptococcus Rapid Negative (NEGATIVE) Urine Collection Type Unknown Urine Color Yellow Urine Clarity Clear Urine pH 6.0 Urine Specific [place] 1.010 Urine Protein Negative mg/dL (NEG-TRACE) Urine Glucose (UA) Negative mg/dL (NEG) Urine Ketones (Stick) Negative mg/dL (NEG) Urine Blood Moderate (NEG) Urine Nitrite Negative (NEG) Urine Bilirubin Negative (NEG) Urine Urobilinogen Dipstick 1.0 mg/dL (0.2 mg/dL) Urine Leukocyte Esterase Small (NEG) Urine RBC 3-5 /HPF (0-2) Urine WBC 5-10 /HPF (0-4) Urine Squamous Epithelial Cells None /LPF Urine Amorphous Sediment Present /HPF Urine Bacteria 0 /HPF (0-FEW) Objective Assessment Fever CVA Leukocytosis h/o HTN Plan Plan of Care vanc and zosyn check cultures check procal supportive care LEVI SINGH MD May 30, 2018 10:52
[2018-05-30 11:00] VITALS: BP 87/48
[2018-05-30 14:56] VITALS: BP 89/64
--- NOTE | 2018-05-30 15:07 | NUR ---
SW following pt for anticipated dc needs. Chart reviewed. Pt lives at home with family, is dependent with ADL's and has 24 hour care. Will continue to follow.
[2018-05-30] MEDS: VANCOMYCIN 1 GM in IV NORMAL SALINE 250ML 250 ML IV SCH (16:22)
--- NOTE | 2018-05-30 18:46 | NUR ---
This nurse received a call from the patient's mother stating that the patient's caregiver had a positive TB skin test today for his routine employment check. His employer sent him to the clinic to obtain a Chest Xray. This roving court reporter informed Dr. Hazel and Dr. Christie, who stated that CXR last night was negative. RN Vasc Tech was also notified, who ordered staff to move patient to negative pressure room as a precaution.
[2018-05-30 19:00] VITALS: BP 95/66
[2018-05-30] MEDS: PIPERACILLIN/TAZOBACTAM 4.5 GM in IV NORMAL SALINE 100ML 100 ML IV SCH (21:57)
[2018-05-30] MEDS: LACTOBACILLUS RHAMNOSUS GG 1 CAPSULE. PO SCH (21:57)
[2018-05-30 23:00] VITALS: BP 84/60
--- NOTE | 2018-05-31 00:37 | CONS ---
DATE OF CONSULTATION: 05/30/2018 REQUESTING PHYSICIAN: Dr. Pina. REASON FOR CONSULTATION: Fever. HISTORY OF PRESENT ILLNESS: This is a 57-year-old gentleman with a history of CVA, who is living at home with the help of the family. The patient was brought in because of apparently he had 106 fever at home. He was noted to have a T-max of 101.9 here. The patient's initial workup showed a white count of 15.6, lactic acid 2.1 and his chest x-ray is unremarkable. His urinalysis is also unremarkable. Influenza screen was negative. The patient has been started on vancomycin and Zosyn. The patient is alert, awake, able to appropriately nod. Not heard any word from his mouth, but he is appropriately nodding to deny nausea, vomiting, diarrhea, chest pain, shortness of breath, abdominal pain, sore throat, headache. 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 SOCIAL HISTORY: Negative for smoking, alcohol, illicit drug use. He is taken care of by family i.e., mother. REVIEW OF SYSTEMS: As per HPI. All other systems reviewed are negative. CURRENT MEDICATIONS: Reviewed. The patient is on vancomycin and Zosyn. ALLERGIES: No known drug allergies. PHYSICAL EXAMINATION: GENERAL: Alert and oriented gentleman, not in distress. VITAL SIGNS: Stable with a T-max of 101.9. HEENT: NAD. Both pupils are round and reacting. No conjunctival lesion, no lesion in the mouth. NECK: Supple, no JVP, no lymphadenopathy. LUNGS: Clear. HEART: S1, S2 regular. ABDOMEN: Benign. EXTREMITIES: No edema or cyanosis. NEUROLOGIC: The patient is a total care. LABORATORY DATA: White count is 15.6, platelets are normal. BUN and creatinine is normal. Urinalysis showed 5-10 wbc. IMPRESSION: 1. Fever, possible viral infection, possible aspiration. 2. Cerebrovascular accident. 3. History of hypertension. 4. History of gastroesophageal reflux disease. 5. Leukocytosis. PLAN: Recommend continue vancomycin and Zosyn for the time being, will see the response. If he continues to be febrile, we will do more further investigation for the time being. Thank you very much, Dr. Pina, for giving me the opportunity to participate in this patient's care. Discussion with Dr. Pina done. LEVI SINGH MD DR: AC/gladis JOB#: [id number] / [id number]
[2018-05-31] MEDS: VANCOMYCIN 1 GM in IV NORMAL SALINE 250ML 250 ML IV SCH ×2 (03:37→18:44)
[2018-05-31 03:42] VITALS: BP 148/99
[2018-05-31 05:19] LABS: BASO % 0 % (0-3); EOS % 1 % (0-3); HEMATOCRIT 43.3 % (39.0-53.0); HEMOGLOBIN 14.1 g/dL (13.0-17.5); LYMPH # 0.7 x10^3/uL (1.0-4.8); LYMPH % 8 % (24-48); MEAN CORPUSCULAR HEMOGLOBIN 29 pg (25-35); MEAN CORPUSCULAR HGB CONC 33 g/dL (31-37); MEAN CORPUSCULAR VOLUME 88 fL (79-100); MONO # 0.4 x10^3/uL (0.0-1.1); MONO % 5 % (0-9); NEUT # 7.8 x10^3uL (1.8-7.7); NEUT % 86 % (31-73); PLATELET COUNT 248 x10^3/uL (140-400); RED BLOOD COUNT 4.93 x10^6/uL (4.30-5.70); RED CELL DISTRIBUTION WIDTH 14.4 % (11.5-14.5)
[2018-05-31] MEDS: PIPERACILLIN/TAZOBACTAM 4.5 GM in IV NORMAL SALINE 100ML 100 ML IV SCH ×5 (05:51→17:09)
[2018-05-31 07:00] VITALS: BP 120/85
[2018-05-31 07:52] LABS: CREATININE 0.9 mg/dL (0.7-1.3); POTASSIUM 4.3 mmol/L (3.5-5.1)
--- NOTE | 2018-05-31 08:04 | PDOC ---
PROGRESS NOTES Chief Complaint Chief Complaint A/P: Fever - sepsis of unclear etiology at this point. F/u blood cultures. Empiric antibiotics given. Consult ID h/o CVA with rt paralysis. OT for repositioning with contractures htn - cont meds hld - cont meds h/o seizure - not on anti-epileptics constipation - will cont bowel regimen aphasia - nods yes and no dysphagia with PEG - cont tube feeds hydrocephalus - s/p ENGINE REPA[employer]ER [employer]ICE shunt, appeared to be functioning well with peritoneal drain patent BECKY, vasomotor - will give gentle IVF with h/o ckd2 Plan: vanc and zosyn check cultures check procal supportive care FEN - TF PPX - SCDs, heparin FULL CODE Inpatient for fever of uncertain origin. At least 2 midnights inpatient History of Present Illness History of Present Illness Mr Georges is a 57-year-old male w/ PMHx prior CVA, dysphagia s/p PEG, seizures, non-verbal who presents with report of high fever at home that had been 106.1 earlier in the evening per his caregiver. Patient was given Tylenol and mother indicates the temperature had come down to a little above 98. She states that she had checked it again a few hours later and temperature was back up to 102. She decided that she better bring the patient in. Patient mother states that patient has had no mental status changes. Had fever 101.9F here, leukocytosis and negative rapid flu and negative strep A rapid. Procalcitonin elevated. CXR not significant He is covered by a blanket this morning. Spikes a fever after I leave the room. Plan: ID consulted Cont empiric antibiotics Check blood cultures Repeat flu swab TB precautions until d/c'd by ID Vitals Vitals Vital Signs Date Time Temp Pulse Resp B/P (MAP) Pulse Ox O2 Delivery O2 Flow Rate FiO2 05/31/18 07:00 98.1 87 20 120/85 (97) 96 Room Air 98.1 Physical Exam General: Cooperative, No acute distress Lungs: Clear, Other Abdomen: Normal bowel sounds, Soft, No tenderness, No hepatosplenomegaly, No masses Extremities: No clubbing, No cyanosis, No edema, Normal pulses, No tenderness/ swelling Skin: No rashes, No breakdown, No significant lesion Labs LABS Laboratory Tests Test 05/31/18 04:25 White Blood Count 9.0 x10^3/uL (4.0-11.0) Red Blood Count 4.93 x10^6/uL (4.30-5.70) Hemoglobin 14.1 g/dL (13.0-17.5) Hematocrit 43.3 % (39.0-53.0) Mean Corpuscular Volume 88 fL (79-100) Mean Corpuscular Hemoglobin 29 pg (25-35) Mean Corpuscular Hemoglobin Concent 33 g/dL (31-37) Red Cell Distribution Width 14.4 % (11.5-14.5) Platelet Count 248 x10^3/uL (140-400) Neutrophils (%) (Auto) 86 % (31-73) Lymphocytes (%) (Auto) 8 % (24-48) Monocytes (%) (Auto) 5 % (0-9) Eosinophils (%) (Auto) 1 % (0-3) Basophils (%) (Auto) 0 % (0-3) Neutrophils # (Auto) 7.8 x10^3uL (1.8-7.7) Lymphocytes # (Auto) 0.7 x10^3/uL (1.0-4.8) Monocytes # (Auto) 0.4 x10^3/uL (0.0-1.1) Eosinophils # (Auto) 0.0 x10^3/uL (0.0-0.7) Basophils # (Auto) 0.0 x10^3/uL (0.0-0.2) Sodium Level 142 mmol/L (136-145) Potassium Level 4.3 mmol/L (3.5-5.1) Chloride Level 104 mmol/L (98-107) Carbon Dioxide Level 27 mmol/L (21-32) Anion Gap 11 (6-14) Blood Urea Nitrogen 11 mg/dL (8-26) Creatinine 0.9 mg/dL (0.7-1.3) Estimated GFR (Cockcroft-Gault) 106.0 Glucose Level 84 mg/dL (70-99) Calcium Level 9.0 mg/dL (8.5-10.1) Assessment and Plan Assessmemt and Plan Problems Medical Problems: (1) Fever 106 degrees F or over Status: Acute (2) Systemic inflammatory response syndrome (SIRS) Status: Acute Comment Review of Relevant I have reviewed the following items madelyn (where applicable) has been applied. Labs Laboratory Tests Test 05/29/18 22:10 05/30/18 01:50 05/30/18 05:25 05/31/18 04:25 White Blood Count 15.6 x10^3/uL (4.0-11.0) 9.0 x10^3/uL (4.0-11.0) Red Blood Count 5.33 x10^6/uL (4.30-5.70) 4.93 x10^6/uL (4.30-5.70) Hemoglobin 15.1 g/dL (13.0-17.5) 14.1 g/dL (13.0-17.5) Hematocrit 46.6 % (39.0-53.0) 43.3 % (39.0-53.0) Mean Corpuscular Volume 87 fL (79-100) 88 fL (79-100) Mean Corpuscular Hemoglobin 28 pg (25-35) 29 pg (25-35) Mean Corpuscular Hemoglobin Concent 32 g/dL (31-37) 33 g/dL (31-37) Red Cell Distribution Width 14.4 % (11.5-14.5) 14.4 % (11.5-14.5) Platelet Count 269 x10^3/uL (140-400) 248 x10^3/uL (140-400) Neutrophils (%) (Auto) 82 % (31-73) 86 % (31-73) Lymphocytes (%) (Auto) 9 % (24-48) 8 % (24-48) Monocytes (%) (Auto) 9 % (0-9) 5 % (0-9) Eosinophils (%) (Auto) 0 % (0-3) 1 % (0-3) Basophils (%) (Auto) 0 % (0-3) 0 % (0-3) Neutrophils # (Auto) 12.8 x10^3uL (1.8-7.7) 7.8 x10^3uL (1.8-7.7) Lymphocytes # (Auto) 1.4 x10^3/uL (1.0-4.8) 0.7 x10^3/uL (1.0-4.8) Monocytes # (Auto) 1.4 x10^3/uL (0.0-1.1) 0.4 x10^3/uL (0.0-1.1) Eosinophils # (Auto) 0.0 x10^3/uL (0.0-0.7) 0.0 x10^3/uL (0.0-0.7) Basophils # (Auto) 0.0 x10^3/uL (0.0-0.2) 0.0 x10^3/uL (0.0-0.2) Segmented Neutrophils % 79 % (35-66) Lymphocytes % 12 % (24-48) Monocytes % 8 % (0-10) Basophils % 1 % (0-3) Toxic Granulation Slight Platelet Estimate Adequate (ADEQUATE) Sodium Level 140 mmol/L (136-145) 142 mmol/L (136-145) Potassium Level 3.8 mmol/L (3.5-5.1) 4.3 mmol/L (3.5-5.1) Chloride Level 99 mmol/L (98-107) 104 mmol/L (98-107) Carbon Dioxide Level 30 mmol/L (21-32) 27 mmol/L (21-32) Anion Gap 11 (6-14) 11 (6-14) Blood Urea Nitrogen 14 mg/dL (8-26) 11 mg/dL (8-26) Creatinine 1.2 mg/dL (0.7-1.3) 0.9 mg/dL (0.7-1.3) Estimated GFR (Cockcroft-Gault) 76.1 106.0 BUN/Creatinine Ratio 12 (6-20) Glucose Level 106 mg/dL (70-99) 84 mg/dL (70-99) Lactic Acid Level 2.1 mmol/L (0.4-2.0) 1.0 mmol/L (0.4-2.0) Calcium Level 9.4 mg/dL (8.5-10.1) 9.0 mg/dL (8.5-10.1) Total Bilirubin 1.1 mg/dL (0.2-1.0) Aspartate Amino Transf (AST/SGOT) 20 U/L (15-37) Alanine Aminotransferase (ALT/SGPT) 19 U/L (16-63) Alkaline Phosphatase 123 U/L (46-116) Total Protein 8.5 g/dL (6.4-8.2) Albumin 3.2 g/dL (3.4-5.0) Albumin/Globulin Ratio 0.6 (1.0-1.7) Influenza Type A Antigen Negative (NEGATIVE) Influenza Type B Antigen Negative (NEGATIVE) Group A Streptococcus Rapid Negative (NEGATIVE) Urine Collection Type Unknown Urine Color Yellow Urine Clarity Clear Urine pH 6.0 Urine Specific [place] 1.010 Urine Protein Negative mg/dL (NEG-TRACE) Urine Glucose (UA) Negative mg/dL (NEG) Urine Ketones (Stick) Negative mg/dL (NEG) Urine Blood Moderate (NEG) Urine Nitrite Negative (NEG) Urine Bilirubin Negative (NEG) Urine Urobilinogen Dipstick 1.0 mg/dL (0.2 mg/dL) Urine Leukocyte Esterase Small (NEG) Urine RBC 3-5 /HPF (0-2) Urine WBC 5-10 /HPF (0-4) Urine Squamous Epithelial Cells None /LPF Urine Amorphous Sediment Present /HPF Urine Bacteria 0 /HPF (0-FEW) Procalcitonin 0.37 ng/mL (0.00-0.10) Laboratory Tests Test 05/31/18 04:25 White Blood Count 9.0 x10^3/uL (4.0-11.0) Red Blood Count 4.93 x10^6/uL (4.30-5.70) Hemoglobin 14.1 g/dL (13.0-17.5) Hematocrit 43.3 % (39.0-53.0) Mean Corpuscular Volume 88 fL (79-100) Mean Corpuscular Hemoglobin 29 pg (25-35) Mean Corpuscular Hemoglobin Concent 33 g/dL (31-37) Red Cell Distribution Width 14.4 % (11.5-14.5) Platelet Count 248 x10^3/uL (140-400) Neutrophils (%) (Auto) 86 % (31-73) Lymphocytes (%) (Auto) 8 % (24-48) Monocytes (%) (Auto) 5 % (0-9) Eosinophils (%) (Auto) 1 % (0-3) Basophils (%) (Auto) 0 % (0-3) Neutrophils # (Auto) 7.8 x10^3uL (1.8-7.7) Lymphocytes # (Auto) 0.7 x10^3/uL (1.0-4.8) Monocytes # (Auto) 0.4 x10^3/uL (0.0-1.1) Eosinophils # (Auto) 0.0 x10^3/uL (0.0-0.7) Basophils # (Auto) 0.0 x10^3/uL (0.0-0.2) Sodium Level 142 mmol/L (136-145) Potassium Level 4.3 mmol/L (3.5-5.1) Chloride Level 104 mmol/L (98-107) Carbon Dioxide Level 27 mmol/L (21-32) Anion Gap 11 (6-14) Blood Urea Nitrogen 11 mg/dL (8-26) Creatinine 0.9 mg/dL (0.7-1.3) Estimated GFR (Cockcroft-Gault) 106.0 Glucose Level 84 mg/dL (70-99) Calcium Level 9.0 mg/dL (8.5-10.1) Microbiology 05/29/18 Blood Culture - Preliminary, Resulted NO GROWTH AFTER 1 DAY Medications Current Medications Sodium Chloride 1,000 ml @ 1,000 mls/hr Q1H IV Last administered on 05/29/18at 22:04; Start 05/29/18 at 22:00; Stop 05/29/18 at 22:59; Status DC Ibuprofen (Children'S Motrin) 500 mg 1X ONCE PO Last administered on at 22:04; Start 05/29/18 at 22:00; Stop 05/29/18 at 22:01; Status DC Sodium Chloride 1,000 ml @ 1,000 mls/hr 1X ONCE IV Last administered on at 00:27; Start 05/30/18 at 01:00; Stop 05/30/18 at 01:59; Status DC Vancomycin HCl 250 ml @ 250 mls/hr 1X ONCE IV ; Start 05/30/18 at 03:00; Stop 05/30/18 at 03:59; Status UNV Piperacillin Sod/ Tazobactam Sod 3.375 gm/Sodium Chloride 50 ml @ 100 mls/hr 1X ONCE IV Last administered on 05/30/18at 03:11; Start 05/30/18 at 03:15; Stop 05/30/18 at 03:44; Status DC Ondansetron HCl (Zofran) 4 mg PRN Q8HRS PRN IV NAUSEA/VOMITING 1ST CHOICE; Start 05/30/18 at 03:00; Stop 05/31/18 at 02:59; Status DC Sodium Chloride 1,000 ml @ 100 mls/hr Q10H IV Last administered on 05/30/18at 21:58; Start 05/30/18 at 03:00; Stop 05/31/18 at 02:59; Status DC Acetaminophen (Tylenol) 650 mg PRN Q4HRS PRN PO FEVER; Start 05/30/18 at 03:00 ; Stop 05/31/18 at 02:59; Status DC Vancomycin HCl 1.75 gm/Sodium Chloride 500 ml @ 250 mls/hr 1X ONCE IV Last administered on 05/30/18at 03:56; Start 05/30/18 at 04:00; Stop 05/30/18 at 05:59 ; Status DC Vancomycin HCl (Vanco Per Pharmacy) 1 each PRN DAILY PRN MC SEE COMMENTS Last administered on 05/30/18at 04:17; Start 05/30/18 at 03:00 Vancomycin HCl 1 gm/Sodium Chloride 250 ml @ 250 mls/hr Q12H IV Last administered on 05/31/18at 03:37; Start 05/30/18 at 16:00 Vancomycin HCl (Vancomycin Trough Level) 1 each 1X ONCE MC ; Start 05/31/18 at 15:30; Stop 05/31/18 at 15:31 Piperacillin Sod/ Tazobactam Sod 4.5 gm/Sodium Chloride 100 ml @ 200 mls/hr Q6HRS IV Last administered on 05/31/18at 05:51; Start 05/30/18 at 18:00 Lactobacillus Rhamnosus (Culturelle) 1 cap BID PO Last administered on at 21:57; Start 05/30/18 at 21:00 Active Scripts Active Reported Amlodipine Besylate 10 Mg Tablet 10 Mg PO DAILY Losartan Potassium 100 Mg Tablet 1 Tab PO PRN DAILY PRN Transderm-Scop (Scopolamine) 1 Each Patch.td72 1 Patch TP Q3DAYS Provigil (Modafinil) 100 Mg Tablet 100 Mg GT DAILY Prevacid (Lansoprazole) 30 Mg Tab.rap.dr 30 Mg DAILY Milk Of Magnesia (Magnesium Hydroxide) 400 Mg/5 Ml Oral.susp 400 Mg GT PRN DAILY PRN Lipitor (Atorvastatin Calcium) 40 Mg Tablet 40 Mg PO HS Lexapro (Escitalopram Oxalate) 20 Mg Tablet 20 Mg PO DAILY Duoneb 0.5 Mg-3 Mg/3 Ml Soln (Ipratropium/Albuterol Sulfate) 3 Ml Ampul.neb 3 Ml IH QIDPRN PRN [colace syrup] 25 Ml GT PRN BID PRN Aspirin 81 Mg Tab.chew 81 Mg PO DAILY Artificial Tears Drops (Dextran 70/Hypromellose/Pf) 1 Each Droperette 1 Each OU PRN Q4HRS PRN Vitals/I & O Vital Sign - Last 24 Hours 05/30/18 05/30/18 05/30/18 05/30/18 11:00 14:56 19:00 20:10 Temp 97.7 97.9 99.1 97.7 97.9 99.1 Pulse 59 18 72 Resp 14 16 22 B/P (MAP) 87/48 (61) 89/64 (72) 95/66 (76) Pulse Ox 95 94 93 O2 Delivery Room Air Room Air Room Air Room Air 05/30/18 05/31/18 05/31/18 23:00 03:42 07:00 Temp 99.0 98.1 98.1 99.0 98.1 98.1 Pulse 70 80 87 Resp 18 22 20 B/P (MAP) 84/60 (68) 148/99 (115) 120/85 (97) Pulse Ox 95 92 96 O2 Delivery Room Air Room Air Room Air Intake and Output 05/30/18 05/30/18 05/31/18 15:00 23:00 07:00 Intake Total 760 ml 100 ml Output Total 0 ml Balance 760 ml 100 ml Nutrition Consultation Dietary Evaluation: Recommendations by RD: PPN/TPN Comments: Recommend Jevity 1.5, 230mL (1 italo) 5x/day w/ 250mL flushes w/ each bolus. Expected Outcomes/Goals: tolerate bolus TF TF to meet >75% estimated energy/protein needs Malnutrition Findings: Food and Nutrition Intake (Mod: <75% est energy req 7days Body Fat Depletion (Non Severe: Mod to Severe Weight Status: Appropriate DENIA RENDON MD May 31, 2018 08:04
[2018-05-31] MEDS: LACTOBACILLUS RHAMNOSUS GG 1 CAPSULE. PO SCH ×2 (09:08→21:43)
[2018-05-31 11:31] VITALS: BP 116/72
--- NOTE | 2018-05-31 11:57 | PDOC ---
Infectious Disease Note Subjective Subjective pt is awake, did not respond today ROS ROS no n/v/d/ fever + Vital Sign Vital Signs Vital Signs Date Time Temp Pulse Resp B/P (MAP) Pulse Ox O2 Delivery O2 Flow Rate FiO2 05/31/18 11:31 101.9 99 18 116/72 (87) 94 Room Air 101.9 Physical Exam PHYSICAL EXAM GENERAL: Alert and oriented gentleman, not in distress. VITAL SIGNS: Stable HEENT: NAD. Both pupils are round and reacting. No conjunctival lesion, no lesion in the mouth. NECK: Supple, no JVP, no lymphadenopathy. LUNGS: Clear. HEART: S1, S2 regular. ABDOMEN: Benign. EXTREMITIES: No edema or cyanosis. NEUROLOGIC: The patient is a total care. Labs Lab Laboratory Tests Test 05/31/18 04:25 White Blood Count 9.0 x10^3/uL (4.0-11.0) Red Blood Count 4.93 x10^6/uL (4.30-5.70) Hemoglobin 14.1 g/dL (13.0-17.5) Hematocrit 43.3 % (39.0-53.0) Mean Corpuscular Volume 88 fL (79-100) Mean Corpuscular Hemoglobin 29 pg (25-35) Mean Corpuscular Hemoglobin Concent 33 g/dL (31-37) Red Cell Distribution Width 14.4 % (11.5-14.5) Platelet Count 248 x10^3/uL (140-400) Neutrophils (%) (Auto) 86 % (31-73) Lymphocytes (%) (Auto) 8 % (24-48) Monocytes (%) (Auto) 5 % (0-9) Eosinophils (%) (Auto) 1 % (0-3) Basophils (%) (Auto) 0 % (0-3) Neutrophils # (Auto) 7.8 x10^3uL (1.8-7.7) Lymphocytes # (Auto) 0.7 x10^3/uL (1.0-4.8) Monocytes # (Auto) 0.4 x10^3/uL (0.0-1.1) Eosinophils # (Auto) 0.0 x10^3/uL (0.0-0.7) Basophils # (Auto) 0.0 x10^3/uL (0.0-0.2) Sodium Level 142 mmol/L (136-145) Potassium Level 4.3 mmol/L (3.5-5.1) Chloride Level 104 mmol/L (98-107) Carbon Dioxide Level 27 mmol/L (21-32) Anion Gap 11 (6-14) Blood Urea Nitrogen 11 mg/dL (8-26) Creatinine 0.9 mg/dL (0.7-1.3) Estimated GFR (Cockcroft-Gault) 106.0 Glucose Level 84 mg/dL (70-99) Calcium Level 9.0 mg/dL (8.5-10.1) Micro Microbiology 05/29/18 Blood Culture - Preliminary, Resulted NO GROWTH AFTER 1 DAY Objective Assessment 1. Fever, possible viral infection, possible aspiration. 2. Cerebrovascular accident. 3. History of hypertension. 4. History of gastroesophageal reflux disease. 5. Leukocytosis Plan Plan of Care vanc and zosyn check cultures check procal supportive care recheck influenza LEVI SINGH MD May 31, 2018 11:57
[2018-05-31] MEDS: ACETAMINOPHEN 650 MG/20.3 ML SOLUTION. PEG PRN (12:34)
--- NOTE | 2018-05-31 13:14 | NUR ---
SW following. Discussed with RN, pt has a multimedia specialist caregiver at home and lives with mother. Pt is non verbal. Pt being retested for the flu. No SW needs at this time. SW will continue to follow.
[2018-05-31 13:38] LABS: INFLUENZA A PATIENT NEGATIVE (NEGATIVE); INFLUENZA B PATIENT NEGATIVE (NEGATIVE)
[2018-05-31 15:00] VITALS: BP 105/61
[2018-05-31 16:23] LABS: VANC TR 14.7 mcg/mL (10.0-20.0)
[2018-05-31] MEDS: VANCOMYCIN PER PHARMACY MC PRN (16:59)
--- NOTE | 2018-05-31 17:00 | NUR ---
Pharmacy Vancomycin Dosing Note S:Consulted to monitor and dose vancomycin started 05/30/18. O:SHELLEY POLANCO is a 57 year old M with FEVER, SIRS . Height: 6 feet, 0 inches Weight: 76.738871 kg Sod Body Weight: 77.60 Adjusted Body Weight: 74.64 Dosing Weight: Actual Other Antibiotics: LABS: Last BUN: 14 Last Creatinine: 1.2 Creatinine Clearance: 69 mL/min Last WBC: 15.6 Last Procalcitonin: 0.37 Tmax (past 24 hours): 101.9 Microbiology: I/O: Drug Levels: Last Trough level: 14.7 on 05/31/18 at 1530 Last dose given 05/30/18 at 0400 Vancomycin Dosing: Loading Dose: 1750 mg x1 Dosing Weight: Actual Target Trough: 10-20 A: Based on: LEVEL P: 1. Continue Vancomycin 1000 mg IV q12h 2. Follow up Trough level on 05/31/18 at 1530 3. Pharmacy will continue to monitor, follow and adjust therapy as needed. ELO CASTELLANOS [facility], 05/31/18 [id number]
[2018-05-31 19:00] VITALS: BP 104/77
[2018-05-31 23:00] VITALS: BP 107/77
[2018-06-01 03:00] VITALS: BP 109/80
[2018-06-01] MEDS: VANCOMYCIN 1 GM in IV NORMAL SALINE 250ML 250 ML IV SCH ×2 (03:40→16:00)
[2018-06-01] MEDS: ACETAMINOPHEN 650 MG/20.3 ML SOLUTION. PEG PRN (04:35)
[2018-06-01] MEDS: PIPERACILLIN/TAZOBACTAM 4.5 GM in IV NORMAL SALINE 100ML 100 ML IV SCH ×6 (06:10→23:42)
[2018-06-01 07:00] VITALS: BP 99/69
--- NOTE | 2018-06-01 08:01 | PDOC ---
PROGRESS NOTES Chief Complaint Chief Complaint A/P: Fever - sepsis of unclear etiology at this point. F/u blood cultures. Empiric antibiotics given. Consulted ID h/o CVA with rt paralysis. 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 At least 2 midnights inpatient History of Present Illness History of Present Illness Mr Georges is a 57-year-old male w/ PMHx prior CVA, dysphagia s/p PEG, seizures, non-verbal who presents with report of high fever at home that had been 106.1 earlier in the evening per his caregiver. Patient was given Tylenol and mother indicates the temperature had come down to a little above 98. She states that she had checked it again a few hours later and temperature was back up to 102. She decided that she better bring the patient in. Patient mother states that patient has had no mental status changes. Had fever 101.9F here, leukocytosis and negative rapid flu and negative strep A rapid. Procalcitonin elevated. CXR not significant 05/31: He is covered by a blanket this morning. Spikes a fever after I leave the room. Still febrile > 102F overnight. Cultures pending. Repeat flu negative. He appears comfortable and has no complaints. Good skin integrity. Plan: ID consulted Cont empiric antibiotics Check blood cultures with fevers again CT Chest/abd/pelvis with IV and oral contrast per d/w ID, will need to look for abscess Vitals Vitals Vital Signs Date Time Temp Pulse Resp B/P (MAP) Pulse Ox O2 Delivery O2 Flow Rate FiO2 06/01/18 03:00 102.2 77 20 109/80 (90) 93 102.2 05/31/18 20:00 Room Air Physical Exam Physical Exam GENERAL: Alert and oriented gentleman, not in distress. VITAL SIGNS: Stable HEENT: NAD. Both pupils are round and reacting. No conjunctival lesion, no lesion in the mouth. NECK: Supple, no JVP, no lymphadenopathy. LUNGS: Clear. HEART: S1, S2 regular. ABDOMEN: Benign. EXTREMITIES: No edema or cyanosis. NEUROLOGIC: The patient is a total care. General: Cooperative, No acute distress Lungs: Clear, Other Abdomen: Normal bowel sounds, Soft, No tenderness, No hepatosplenomegaly, No masses Extremities: No clubbing, No cyanosis, No edema, Normal pulses, No tenderness/ swelling Skin: No rashes, No breakdown, No significant lesion Labs LABS Laboratory Tests Test 05/31/18 13:00 05/31/18 15:45 Influenza Type A Antigen Negative (NEGATIVE) Influenza Type B Antigen Negative (NEGATIVE) Vancomycin Level Trough 14.7 mcg/mL (10.0-20.0) Vancomycin Last Dose Date Unk Vancomycin Last Dose Time Unk Assessment and Plan Assessmemt and Plan Problems Medical Problems: (1) Fever 106 degrees F or over Status: Acute (2) Systemic inflammatory response syndrome (SIRS) Status: Acute Comment Review of Relevant I have reviewed the following items madelyn (where applicable) has been applied. Labs Laboratory Tests Test 05/31/18 04:25 05/31/18 13:00 05/31/18 15:45 White Blood Count 9.0 x10^3/uL (4.0-11.0) Red Blood Count 4.93 x10^6/uL (4.30-5.70) Hemoglobin 14.1 g/dL (13.0-17.5) Hematocrit 43.3 % (39.0-53.0) Mean Corpuscular Volume 88 fL (79-100) Mean Corpuscular Hemoglobin 29 pg (25-35) Mean Corpuscular Hemoglobin Concent 33 g/dL (31-37) Red Cell Distribution Width 14.4 % (11.5-14.5) Platelet Count 248 x10^3/uL (140-400) Neutrophils (%) (Auto) 86 % (31-73) Lymphocytes (%) (Auto) 8 % (24-48) Monocytes (%) (Auto) 5 % (0-9) Eosinophils (%) (Auto) 1 % (0-3) Basophils (%) (Auto) 0 % (0-3) Neutrophils # (Auto) 7.8 x10^3uL (1.8-7.7) Lymphocytes # (Auto) 0.7 x10^3/uL (1.0-4.8) Monocytes # (Auto) 0.4 x10^3/uL (0.0-1.1) Eosinophils # (Auto) 0.0 x10^3/uL (0.0-0.7) Basophils # (Auto) 0.0 x10^3/uL (0.0-0.2) Sodium Level 142 mmol/L (136-145) Potassium Level 4.3 mmol/L (3.5-5.1) Chloride Level 104 mmol/L (98-107) Carbon Dioxide Level 27 mmol/L (21-32) Anion Gap 11 (6-14) Blood Urea Nitrogen 11 mg/dL (8-26) Creatinine 0.9 mg/dL (0.7-1.3) Estimated GFR (Cockcroft-Gault) 106.0 Glucose Level 84 mg/dL (70-99) Calcium Level 9.0 mg/dL (8.5-10.1) Influenza Type A Antigen Negative (NEGATIVE) Influenza Type B Antigen Negative (NEGATIVE) Vancomycin Level Trough 14.7 mcg/mL (10.0-20.0) Vancomycin Last Dose Date Unk Vancomycin Last Dose Time Unk Laboratory Tests Test 05/31/18 13:00 05/31/18 15:45 Influenza Type A Antigen Negative (NEGATIVE) Influenza Type B Antigen Negative (NEGATIVE) Vancomycin Level Trough 14.7 mcg/mL (10.0-20.0) Vancomycin Last Dose Date Unk Vancomycin Last Dose Time Unk Microbiology 05/29/18 Blood Culture - Preliminary, Resulted NO GROWTH AFTER 2 DAYS 05/30/18 Urine Culture - Final, Complete 05/30/18 Urine Culture Result 1 (GEMMA) - Final, Complete Medications Current Medications Sodium Chloride 1,000 ml @ 1,000 mls/hr Q1H IV Last administered on 05/29/18at 22:04; Start 05/29/18 at 22:00; Stop 05/29/18 at 22:59; Status DC Ibuprofen (Children'S Motrin) 500 mg 1X ONCE PO Last administered on at 22:04; Start 05/29/18 at 22:00; Stop 05/29/18 at 22:01; Status DC Sodium Chloride 1,000 ml @ 1,000 mls/hr 1X ONCE IV Last administered on at 00:27; Start 05/30/18 at 01:00; Stop 05/30/18 at 01:59; Status DC Vancomycin HCl 250 ml @ 250 mls/hr 1X ONCE IV ; Start 05/30/18 at 03:00; Stop 05/30/18 at 03:59; Status UNV Piperacillin Sod/ Tazobactam Sod 3.375 gm/Sodium Chloride 50 ml @ 100 mls/hr 1X ONCE IV Last administered on 05/30/18at 03:11; Start 05/30/18 at 03:15; Stop 05/30/18 at 03:44; Status DC Ondansetron HCl (Zofran) 4 mg PRN Q8HRS PRN IV NAUSEA/VOMITING 1ST CHOICE; Start 05/30/18 at 03:00; Stop 05/31/18 at 02:59; Status DC Sodium Chloride 1,000 ml @ 100 mls/hr Q10H IV Last administered on 05/30/18at 21:58; Start 05/30/18 at 03:00; Stop 05/31/18 at 02:59; Status DC Acetaminophen (Tylenol) 650 mg PRN Q4HRS PRN PO FEVER; Start 05/30/18 at 03:00 ; Stop 05/31/18 at 02:59; Status DC Vancomycin HCl 1.75 gm/Sodium Chloride 500 ml @ 250 mls/hr 1X ONCE IV Last administered on 05/30/18at 03:56; Start 05/30/18 at 04:00; Stop 05/30/18 at 05:59 ; Status DC Vancomycin HCl (Vanco Per Pharmacy) 1 each PRN DAILY PRN MC SEE COMMENTS Last administered on 05/31/18at 16:59; Start 05/30/18 at 03:00 Vancomycin HCl 1 gm/Sodium Chloride 250 ml @ 250 mls/hr Q12H IV Last administered on 06/01/18at 03:40; Start 05/30/18 at 16:00 Vancomycin HCl (Vancomycin Trough Level) 1 each 1X ONCE MC ; Start 05/31/18 at 15:30; Stop 05/31/18 at 15:31; Status DC Piperacillin Sod/ Tazobactam Sod 4.5 gm/Sodium Chloride 100 ml @ 200 mls/hr Q6HRS IV Last administered on 06/01/18at 06:10; Start 05/30/18 at 18:00 Lactobacillus Rhamnosus (Culturelle) 1 cap BID PO Last administered on at 21:43; Start 05/30/18 at 21:00 Acetaminophen (Tylenol) 650 mg PRN Q6HRS PRN PEG MILD PAIN / TEMP Last administered on 06/01/18at 04:35; Start 05/31/18 at 12:00 Active Scripts Active Reported Amlodipine Besylate 10 Mg Tablet 10 Mg PO DAILY Losartan Potassium 100 Mg Tablet 1 Tab PO PRN DAILY PRN Transderm-Scop (Scopolamine) 1 Each Patch.td72 1 Patch TP Q3DAYS Provigil (Modafinil) 100 Mg Tablet 100 Mg GT DAILY Prevacid (Lansoprazole) 30 Mg Tab.rap.dr 30 Mg DAILY Milk Of Magnesia (Magnesium Hydroxide) 400 Mg/5 Ml Oral.susp 400 Mg GT PRN DAILY PRN Lipitor (Atorvastatin Calcium) 40 Mg Tablet 40 Mg PO HS Lexapro (Escitalopram Oxalate) 20 Mg Tablet 20 Mg PO DAILY Duoneb 0.5 Mg-3 Mg/3 Ml Soln (Ipratropium/Albuterol Sulfate) 3 Ml Ampul.neb 3 Ml IH QIDPRN PRN [colace syrup] 25 Ml GT PRN BID PRN Aspirin 81 Mg Tab.chew 81 Mg PO DAILY Artificial Tears Drops (Dextran 70/Hypromellose/Pf) 1 Each Droperette 1 Each OU PRN Q4HRS PRN Vitals/I & O Vital Sign - Last 24 Hours 05/31/18 05/31/18 05/31/18 05/31/18 11:31 15:00 19:00 20:00 Temp 101.9 101.8 98.9 101.9 101.8 98.9 Pulse 99 96 73 Resp 18 17 18 B/P (MAP) 116/72 (87) 105/61 (76) 104/77 (86) Pulse Ox 94 96 97 O2 Delivery Room Air Room Air Room Air 05/31/18 06/01/18 23:00 03:00 Temp 98.7 102.2 98.7 102.2 Pulse 79 77 Resp 18 20 B/P (MAP) 107/77 (87) 109/80 (90) Pulse Ox 95 93 Intake and Output 05/31/18 05/31/18 06/01/18 15:00 23:00 07:00 Intake Total 1300 ml 1940 ml 900 ml Output Total 0 ml Balance 1300 ml 1940 ml 900 ml Nutrition Consultation Dietary Evaluation: Recommendations by RD: PPN/TPN Comments: Recommend Jevity 1.5, 230mL (1 italo) 5x/day w/ 250mL flushes w/ each bolus. Expected Outcomes/Goals: tolerate bolus TF TF to meet >75% estimated energy/protein needs Malnutrition Findings: Food and Nutrition Intake (Mod: <75% est energy req 7days Body Fat Depletion (Non Severe: Mod to Severe Weight Status: Appropriate DENIA RENDON MD Jun 01, 2018 08:01
[2018-06-01] MEDS: LACTOBACILLUS RHAMNOSUS GG 1 CAPSULE. PO SCH ×2 (09:39→21:16)
--- NOTE | 2018-06-01 10:53 | PDOC ---
Infectious Disease Note Subjective Subjective pt is awake, responded well ROS ROS no n/v/d/ Vital Sign Vital Signs Vital Signs Date Time Temp Pulse Resp B/P (MAP) Pulse Ox O2 Delivery O2 Flow Rate FiO2 06/01/18 07:00 98.1 74 18 99/69 (79) 94 Room Air 98.1 Physical Exam PHYSICAL EXAM GENERAL: Alert and oriented gentleman, not in distress. VITAL SIGNS: Stable HEENT: NAD. Both pupils are round and reacting. No conjunctival lesion, no lesion in the mouth. NECK: Supple, no JVP, no lymphadenopathy. LUNGS: Clear. HEART: S1, S2 regular. ABDOMEN: Benign. EXTREMITIES: No edema or cyanosis. NEUROLOGIC: The patient is a total care. Labs Lab Laboratory Tests Test 05/31/18 13:00 05/31/18 15:45 Influenza Type A Antigen Negative (NEGATIVE) Influenza Type B Antigen Negative (NEGATIVE) Vancomycin Level Trough 14.7 mcg/mL (10.0-20.0) Vancomycin Last Dose Date Unk Vancomycin Last Dose Time Unk Micro Microbiology 05/29/18 Blood Culture - Preliminary, Resulted NO GROWTH AFTER 1 DAY Objective Assessment 1. Fever, possible viral infection, possible aspiration. 2. Cerebrovascular accident. 3. History of hypertension. 4. History of gastroesophageal reflux disease. 5. Leukocytosis Plan Plan of Care vanc and zosyn check cultures check procal supportive care recheck influenza Get CT LEVI SINGH MD Jun 01, 2018 10:53
[2018-06-01 11:00] VITALS: BP 113/72
[2018-06-01] MEDS ORDERED: IOHEXOL 300 MG/ML 100ML VIAL. IV ONE (11:15)
[2018-06-01] MEDS ORDERED: CONTRAST GIVEN. MC PRN (11:15)
--- NOTE | 2018-06-01 11:30 | NUR ---
SW following. Discussed with RN, pt tested negative for Flu and TB. Per RN, pt is still having high temps. No SW needs at this time. SW will continue to follow.
[2018-06-01] MEDS: VANCOMYCIN PER PHARMACY MC PRN (15:25)
--- NOTE | 2018-06-01 15:55 | RAD ---
PQRS Compliance statement: One or more of the following individualized dose reduction techniques were utilized for this examination: 1. Automated exposure control. 2. Adjustment of the mA and/or kV according to patient size. 3. Use of iterative reconstruction technique. Indication:FEVER NO CONTRAST PREV SENT TECHNIQUE: CT chest, abdomen and pelviswithout IV contrast with multiplanar reformats. COMPARISON: 02/28/2018 FINDINGS: Limited exam due to lack of IV contrast. Heart is normal in size. No pericardial or pleural effusion. Calcified mediastinal lymph nodes are seen. Evaluation of hilar lymphadenopathy is limited due to lack of IV contrast. No enlarged axillary adenopathy. Focal consolidation is seen in the right lower lobe. Noncontrast appearance of the liver, spleen, gallbladder, pancreas, adrenals and kidneys within normal limits. Infrarenal IVC filter noted. Partially exophytic right renal mass is seen measuring 2 cm (series 2 image 75). No enlarged retroperitoneal or pelvic adenopathy. No free pelvic fluid or ascites. Large amount of stool is seen in the rectum with moderate diffuse colonic stool burden. The prostate and seminal vesicles show no large mass. Urinary bladder demonstrates no radiopaque stones. Note made of G-tube. No bowel obstruction. No pneumoperitoneum. Ventriculoperitoneal shunt catheter is seen with its tip in the right upper quadrant. Right anterolateral abdominal wall spinal cord stimulator. No suspicious bony lesion. Bilateral L4 pars defect. IMPRESSION: Limited exam due to lack of IV contrast. 1. Small consolidation in the right lower lobe likely pneumonia. 2. Questionable right renal lesion. Nonemergent MRI of the abdomen with IV contrast recommended to rule out underlying mass. 3. Large amount of stool in the rectum. Correlate for fecal impaction. Electronically signed by: Pool Willis DO (06/01/2018 3:52 PM) [facility]
[2018-06-01 19:00] VITALS: BP 108/81
[2018-06-01 23:00] VITALS: BP 107/76
[2018-06-02 03:00] VITALS: BP 110/74
[2018-06-02] MEDS: VANCOMYCIN 1 GM in IV NORMAL SALINE 250ML 250 ML IV SCH ×2 (04:00→14:58)
[2018-06-02] MEDS: PIPERACILLIN/TAZOBACTAM 4.5 GM in IV NORMAL SALINE 100ML 100 ML IV SCH ×3 (04:54→16:59)
[2018-06-02 07:00] VITALS: BP 106/75
--- NOTE | 2018-06-02 08:07 | PDOC ---
PROGRESS NOTES Chief Complaint Chief Complaint A/P: Fever - sepsis of unclear etiology at this point. F/u blood cultures. Empiric antibiotics given. Consulted ID h/o CVA with rt paralysis. OT for repositioning with contractures htn - cont meds hld - cont meds h/o seizure - not on anti-epileptics constipation - will cont bowel regimen aphasia - nods yes and no dysphagia with PEG - cont tube feeds hydrocephalus - s/p [employer] shunt, appeared to be functioning well with peritoneal drain patent BECKY, vasomotor - will give gentle IVF with h/o ckd2 Plan: vanc and zosyn check cultures check procal supportive care FEN - TF PPX - SCDs, heparin FULL CODE Inpatient for fever of uncertain origin. At least 2 midnights inpatient History of Present Illness History of Present Illness Mr Georges is a 57-year-old male w/ PMHx prior CVA, dysphagia s/p PEG, seizures, non-verbal who presents with report of high fever at home that had been 106.1 earlier in the evening per his caregiver. Patient was given Tylenol and mother indicates the temperature had come down to a little above 98. She states that she had checked it again a few hours later and temperature was back up to 102. She decided that she better bring the patient in. Patient mother states that patient has had no mental status changes. Had fever 101.9F here, leukocytosis and negative rapid flu and negative strep A rapid. Procalcitonin elevated. CXR not significant 05/31: He is covered by a blanket this morning. Spikes a fever after I leave the room. 06/01: CT shows right lower lobe consolidation and large impacted stool Still febrile > 100.4F this morning. Cultures pending. Repeat flu negative. He appears comfortable and has no complaints. Good skin integrity. Lost IV access. K low today Plan: ID consulted Cont empiric antibiotics - may need per PEG if IV access is an issue Replace K Disimpact stool - enema today CT Chest/abd/pelvis with IV and oral contrast per d/w ID, will need to look for abscess Vitals Vitals Vital Signs Date Time Temp Pulse Resp B/P (MAP) Pulse Ox O2 Delivery O2 Flow Rate FiO2 06/02/18 03:00 100.4 70 16 110/74 (86) 96 Room Air 100.4 Physical Exam Physical Exam GENERAL: Alert and oriented gentleman, not in distress. VITAL SIGNS: Stable HEENT: NAD. Both pupils are round and reacting. No conjunctival lesion, no lesion in the mouth. NECK: Supple, no JVP, no lymphadenopathy. LUNGS: Clear. HEART: S1, S2 regular. ABDOMEN: Benign. EXTREMITIES: No edema or cyanosis. NEUROLOGIC: The patient is a total care. General: Cooperative, No acute distress Lungs: Clear, Other Abdomen: Normal bowel sounds, Soft, No tenderness, No hepatosplenomegaly, No masses Extremities: No clubbing, No cyanosis, No edema, Normal pulses, No tenderness/ swelling Skin: No rashes, No breakdown, No significant lesion Labs LABS Laboratory Tests Test 06/02/18 03:00 Creatinine 0.8 mg/dL (0.7-1.3) Estimated GFR (Cockcroft-Gault) 121.4 Assessment and Plan Assessmemt and Plan Problems Medical Problems: (1) Fever 106 degrees F or over Status: Acute (2) Systemic inflammatory response syndrome (SIRS) Status: Acute Comment Review of Relevant I have reviewed the following items madelyn (where applicable) has been applied. Labs Laboratory Tests Test 05/31/18 13:00 05/31/18 15:45 06/02/18 03:00 Influenza Type A Antigen Negative (NEGATIVE) Influenza Type B Antigen Negative (NEGATIVE) Vancomycin Level Trough 14.7 mcg/mL (10.0-20.0) Vancomycin Last Dose Date Unk Vancomycin Last Dose Time Unk Creatinine 0.8 mg/dL (0.7-1.3) Estimated GFR (Cockcroft-Gault) 121.4 Laboratory Tests Test 06/02/18 03:00 Creatinine 0.8 mg/dL (0.7-1.3) Estimated GFR (Cockcroft-Gault) 121.4 Microbiology 05/31/18 Blood Culture - Preliminary, Resulted NO GROWTH AFTER 1 DAY 05/29/18 Throat Culture - Final, Complete 05/29/18 - Final, Complete 05/30/18 Urine Culture - Final, Complete 05/30/18 Urine Culture Result 1 (GEMMA) - Final, Complete Medications Current Medications Sodium Chloride 1,000 ml @ 1,000 mls/hr Q1H IV Last administered on 05/29/18at 22:04; Start 05/29/18 at 22:00; Stop 05/29/18 at 22:59; Status DC Ibuprofen (Children'S Motrin) 500 mg 1X ONCE PO Last administered on at 22:04; Start 05/29/18 at 22:00; Stop 05/29/18 at 22:01; Status DC Sodium Chloride 1,000 ml @ 1,000 mls/hr 1X ONCE IV Last administered on at 00:27; Start 05/30/18 at 01:00; Stop 05/30/18 at 01:59; Status DC Vancomycin HCl 250 ml @ 250 mls/hr 1X ONCE IV ; Start 05/30/18 at 03:00; Stop 05/30/18 at 03:59; Status UNV Piperacillin Sod/ Tazobactam Sod 3.375 gm/Sodium Chloride 50 ml @ 100 mls/hr 1X ONCE IV Last administered on 05/30/18at 03:11; Start 05/30/18 at 03:15; Stop 05/30/18 at 03:44; Status DC Ondansetron HCl (Zofran) 4 mg PRN Q8HRS PRN IV NAUSEA/VOMITING 1ST CHOICE; Start 05/30/18 at 03:00; Stop 05/31/18 at 02:59; Status DC Sodium Chloride 1,000 ml @ 100 mls/hr Q10H IV Last administered on 05/30/18at 21:58; Start 05/30/18 at 03:00; Stop 05/31/18 at 02:59; Status DC Acetaminophen (Tylenol) 650 mg PRN Q4HRS PRN PO FEVER; Start 05/30/18 at 03:00 ; Stop 05/31/18 at 02:59; Status DC Vancomycin HCl 1.75 gm/Sodium Chloride 500 ml @ 250 mls/hr 1X ONCE IV Last administered on 05/30/18at 03:56; Start 05/30/18 at 04:00; Stop 05/30/18 at 05:59 ; Status DC Vancomycin HCl (Vanco Per Pharmacy) 1 each PRN DAILY PRN MC SEE COMMENTS Last administered on 06/01/18at 15:25; Start 05/30/18 at 03:00 Vancomycin HCl 1 gm/Sodium Chloride 250 ml @ 250 mls/hr Q12H IV Last administered on 06/01/18at 03:40; Start 05/30/18 at 16:00 Vancomycin HCl (Vancomycin Trough Level) 1 each 1X ONCE MC ; Start 05/31/18 at 15:30; Stop 05/31/18 at 15:31; Status DC Piperacillin Sod/ Tazobactam Sod 4.5 gm/Sodium Chloride 100 ml @ 200 mls/hr Q6HRS IV Last administered on 06/01/18at 06:10; Start 05/30/18 at 18:00 Lactobacillus Rhamnosus (Culturelle) 1 cap BID PO Last administered on at 21:16; Start 05/30/18 at 21:00 Acetaminophen (Tylenol) 650 mg PRN Q6HRS PRN PEG MILD PAIN / TEMP Last administered on 06/01/18at 04:35; Start 05/31/18 at 12:00 Iohexol (Omnipaque 300 Mg/ml) 75 ml 1X ONCE IV ; Start 06/01/18 at 11:15; Stop 06/01/18 at 11:16; Status DC Info (CONTRAST GIVEN -- Rx MONITORING) 1 each PRN DAILY PRN MC SEE COMMENTS; Start 06/01/18 at 11:15; Stop 06/03/18 at 11:14 Active Scripts Active Reported Amlodipine Besylate 10 Mg Tablet 10 Mg PO DAILY Losartan Potassium 100 Mg Tablet 1 Tab PO PRN DAILY PRN Transderm-Scop (Scopolamine) 1 Each Patch.td72 1 Patch TP Q3DAYS Provigil (Modafinil) 100 Mg Tablet 100 Mg GT DAILY Prevacid (Lansoprazole) 30 Mg Tab.rap.dr 30 Mg DAILY Milk Of Magnesia (Magnesium Hydroxide) 400 Mg/5 Ml Oral.susp 400 Mg GT PRN DAILY PRN Lipitor (Atorvastatin Calcium) 40 Mg Tablet 40 Mg PO HS Lexapro (Escitalopram Oxalate) 20 Mg Tablet 20 Mg PO DAILY Duoneb 0.5 Mg-3 Mg/3 Ml Soln (Ipratropium/Albuterol Sulfate) 3 Ml Ampul.neb 3 Ml IH QIDPRN PRN [colace syrup] 25 Ml GT PRN BID PRN Aspirin 81 Mg Tab.chew 81 Mg PO DAILY Artificial Tears Drops (Dextran 70/Hypromellose/Pf) 1 Each Droperette 1 Each OU PRN Q4HRS PRN Vitals/I & O Vital Sign - Last 24 Hours 06/01/18 06/01/18 06/01/18 06/01/18 11:00 19:00 20:22 23:00 Temp 98.4 98.7 98.4 98.4 98.7 98.4 Pulse 86 74 71 Resp 17 16 18 B/P (MAP) 113/72 (86) 108/81 (90) 107/76 (86) Pulse Ox 96 97 97 O2 Delivery Room Air Room Air Room Air Room Air 06/02/18 03:00 Temp 100.4 100.4 Pulse 70 Resp 16 B/P (MAP) 110/74 (86) Pulse Ox 96 O2 Delivery Room Air Intake and Output 06/01/18 06/01/18 06/02/18 14:59 22:59 06:59 Intake Total 987 ml 910 ml 240 ml Balance 987 ml 910 ml [address] - 1. Small consolidation in the right lower lobe likely pneumonia. 2. Questionable right renal lesion. Nonemergent MRI of the abdomen with IV contrast recommended to rule out underlying mass. 3. Large amount of stool in the rectum. Correlate for fecal impaction. Nutrition Consultation Dietary Evaluation: Recommendations by RD: PPN/TPN Comments: Recommend Jevity 1.5, 230mL (1 italo) 5x/day w/ 250mL flushes w/ each bolus. Expected Outcomes/Goals: tolerate bolus TF- met, ongoing TF to meet >75% estimated energy/protein needs- not met, ongoing Malnutrition Findings: Food and Nutrition Intake (Mod: <75% est energy req 7days Body Fat Depletion (Non Severe: Mod to Severe Weight Status: Appropriate DENIA RENDON MD Jun 02, 2018 08:07
[2018-06-02 08:25] LABS: ALBUMIN 2.6 g/dL (3.4-5.0); ALBUMIN/GLOBULIN RATIO 0.6 (1.0-1.7); CALCIUM 8.7 mg/dL (8.5-10.1); CREATININE 0.8 mg/dL (0.7-1.3); GFR 121.4; POTASSIUM 3.4 mmol/L (3.5-5.1); TOTAL BILIRUBIN 0.4 mg/dL (0.2-1.0); TOTAL PROTEIN 6.9 g/dL (6.4-8.2)
[2018-06-02] MEDS: LACTOBACILLUS RHAMNOSUS GG 1 CAPSULE. PO SCH ×2 (08:41→21:00)
[2018-06-02 08:54] LABS: BASO % 1 % (0-3); EOS % 1 % (0-3); HEMATOCRIT 40.2 % (39.0-53.0); HEMOGLOBIN 13.2 g/dL (13.0-17.5); LYMPH # 1.1 x10^3/uL (1.0-4.8); LYMPH % 32 % (24-48); MEAN CORPUSCULAR HEMOGLOBIN 29 pg (25-35); MEAN CORPUSCULAR HGB CONC 33 g/dL (31-37); MEAN CORPUSCULAR VOLUME 88 fL (79-100); MONO # 0.4 x10^3/uL (0.0-1.1); MONO % 13 % (0-9); NEUT # 1.8 x10^3uL (1.8-7.7); NEUT % 54 % (31-73); PLATELET COUNT 227 x10^3/uL (140-400); RED BLOOD COUNT 4.59 x10^6/uL (4.30-5.70); RED CELL DISTRIBUTION WIDTH 14.3 % (11.5-14.5); WHITE BLOOD COUNT 3.3 x10^3/uL (4.0-11.0)
--- NOTE | 2018-06-02 09:24 | PDOC ---
Infectious Disease Note Subjective Subjective pt is awake, responded well ROS ROS no n/v/d/sob low grade fever Vital Sign Vital Signs Vital Signs Date Time Temp Pulse Resp B/P (MAP) Pulse Ox O2 Delivery O2 Flow Rate FiO2 06/02/18 07:00 98.6 71 15 106/75 (85) 96 Room Air 98.6 Physical Exam PHYSICAL EXAM GENERAL: Alert and oriented gentleman, not in distress. VITAL SIGNS: Stable HEENT: NAD. Both pupils are round and reacting. No conjunctival lesion, no lesion in the mouth. NECK: Supple, no JVP, no lymphadenopathy. LUNGS: Clear. HEART: S1, S2 regular. ABDOMEN: Benign. EXTREMITIES: No edema or cyanosis. NEUROLOGIC: The patient is a total care. Labs Lab Laboratory Tests Test 06/02/18 03:00 White Blood Count 3.3 x10^3/uL (4.0-11.0) Red Blood Count 4.59 x10^6/uL (4.30-5.70) Hemoglobin 13.2 g/dL (13.0-17.5) Hematocrit 40.2 % (39.0-53.0) Mean Corpuscular Volume 88 fL (79-100) Mean Corpuscular Hemoglobin 29 pg (25-35) Mean Corpuscular Hemoglobin Concent 33 g/dL (31-37) Red Cell Distribution Width 14.3 % (11.5-14.5) Platelet Count 227 x10^3/uL (140-400) Neutrophils (%) (Auto) 54 % (31-73) Lymphocytes (%) (Auto) 32 % (24-48) Monocytes (%) (Auto) 13 % (0-9) Eosinophils (%) (Auto) 1 % (0-3) Basophils (%) (Auto) 1 % (0-3) Neutrophils # (Auto) 1.8 x10^3uL (1.8-7.7) Lymphocytes # (Auto) 1.1 x10^3/uL (1.0-4.8) Monocytes # (Auto) 0.4 x10^3/uL (0.0-1.1) Eosinophils # (Auto) 0.0 x10^3/uL (0.0-0.7) Basophils # (Auto) 0.0 x10^3/uL (0.0-0.2) Sodium Level 141 mmol/L (136-145) Potassium Level 3.4 mmol/L (3.5-5.1) Chloride Level 103 mmol/L (98-107) Carbon Dioxide Level 28 mmol/L (21-32) Anion Gap 10 (6-14) Blood Urea Nitrogen 7 mg/dL (8-26) Creatinine 0.8 mg/dL (0.7-1.3) Estimated GFR (Cockcroft-Gault) 121.4 BUN/Creatinine Ratio 9 (6-20) Glucose Level 123 mg/dL (70-99) Calcium Level 8.7 mg/dL (8.5-10.1) Total Bilirubin 0.4 mg/dL (0.2-1.0) Aspartate Amino Transf (AST/SGOT) 27 U/L (15-37) Alanine Aminotransferase (ALT/SGPT) 28 U/L (16-63) Alkaline Phosphatase 84 U/L (46-116) Total Protein 6.9 g/dL (6.4-8.2) Albumin 2.6 g/dL (3.4-5.0) Albumin/Globulin Ratio 0.6 (1.0-1.7) Micro Microbiology 05/29/18 Blood Culture - Preliminary, Resulted NO GROWTH AFTER 1 DAY Objective Assessment 1. Fever, possible viral infection, possible aspiration. 2. Cerebrovascular accident. 3. History of hypertension. 4. History of gastroesophageal reflux disease. 5. Leukocytosis Plan Plan of Care vanc and zosyn check cultures check procal supportive care recheck influenza ct noted LEVI SINGH MD Jun 02, 2018 09:24
[2018-06-02] MEDS ORDERED: IPRATRPIUM/ALBUTEROL 0.5/2.5MG 3 ML NEBU. IH PRN (09:30)
[2018-06-02] MEDS ORDERED: MAGNESIUM HYDROXIDE 2,400 MG/30 ML ORAL.SUSP. GT PRN (09:30)
[2018-06-02] MEDS ORDERED: POLYVINYL ALCOHOL 1.4% OPHTH SOLUTION 15ML BOTTLE. OU PRN (10:00)
[2018-06-02] MEDS ORDERED: SCOPOLAMINE 1.5MG PATCH. TD SCH (10:00)
[2018-06-02 11:00] VITALS: BP 102/70
[2018-06-02] MEDS ORDERED: LACTULOSE for RECTAL 200 GM/300 ML SOLUTION. PR PRN (11:30)
[2018-06-02] MEDS ORDERED: POTASSIUM CHLORIDE 20 MEQ/15 ML ORAL LIQUID. PEG ONE (11:30)
[2018-06-02] MEDS ORDERED: DOCUSATE SODIUM 283 MG/5 ML ENEMA. PR ONE (12:00)
--- NOTE | 2018-06-02 12:30 | NUR ---
SW following. Discussed with RN, SW responding to referral of pt's mother requesting [facility] for nursing care at discharge. SW faxed referral to [place]. Awaiting confirmation of whether pt is accepted or not. Dr. Pina anticipates possible discharge tomorrow (06/03/18). MAGDALENA will continue to follow.
--- NOTE | 2018-06-02 14:12 | NUR ---
[facility]DALENA following. [facility] has accepted pt. MAGDALENA to fax discharge paperwork when available. RN notified.
[2018-06-02] MEDS: ASPIRIN CHEWABLE 81 MG TABLET. PO SCH (14:56)
[2018-06-02 15:00] VITALS: BP 118/61
[2018-06-02] MEDS: VANCOMYCIN PER PHARMACY MC PRN (16:07)
[2018-06-02 19:00] VITALS: BP 109/62
[2018-06-02] MEDS ORDERED: IOHEXOL 240 MG/ML 50ML VIAL. ONE (19:34)
[2018-06-02] MEDS ORDERED: ATORVASTATIN CALCIUM 40 MG TABLET. PO SCH (21:00)
[2018-06-02] MEDS ORDERED: DOCUSATE 100 MG/10 ML SOLUTION. GT PRN (21:00)
[2018-06-02 23:00] VITALS: BP 96/73
[2018-06-03] MEDS: PIPERACILLIN/TAZOBACTAM 4.5 GM in IV NORMAL SALINE 100ML 100 ML IV SCH ×3 (00:49→11:25)
[2018-06-03 03:00] VITALS: BP 100/75
[2018-06-03] MEDS: VANCOMYCIN 1 GM in IV NORMAL SALINE 250ML 250 ML IV SCH (04:19)
[2018-06-03 07:00] VITALS: BP 93/63
--- NOTE | 2018-06-03 08:18 | PDOC ---
PROGRESS NOTES Chief Complaint Chief Complaint A/P: Fever - sepsis of unclear etiology at this point. F/u blood cultures. Empiric antibiotics given. Consulted ID h/o CVA with rt paralysis. OT for repositioning with contractures htn - cont meds hld - cont meds h/o seizure - not on anti-epileptics constipation - will cont bowel regimen aphasia - nods yes and no dysphagia with PEG - cont tube feeds hydrocephalus - s/p JOB FOREMAN shunt, appeared to be functioning well with peritoneal drain patent BECKY, vasomotor - will give gentle IVF with h/o ckd2 Plan: vanc and zosyn check cultures check procal supportive care FEN - TF PPX - SCDs, heparin FULL CODE Inpatient for fever of uncertain origin. At least 2 midnights inpatient History of Present Illness History of Present Illness Mr Georges is a 57-year-old male w/ PMHx prior CVA, dysphagia s/p PEG, seizures, non-verbal who presents with report of high fever at home that had been 106.1 earlier in the evening per his caregiver. Patient was given Tylenol and mother indicates the temperature had come down to a little above 98. She states that she had checked it again a few hours later and temperature was back up to 102. She decided that she better bring the patient in. Patient mother states that patient has had no mental status changes. Had fever 101.9F here, leukocytosis and negative rapid flu and negative strep A rapid. Procalcitonin elevated. CXR not significant 05/31: He is covered by a blanket this morning. Spikes a fever after I leave the room. 06/01: CT shows right lower lobe consolidation and large impacted stool 06/02: Still febrile > 100.4F this morning. Cultures pending. Repeat flu negative. He appears comfortable and has no complaints. Good skin integrity. Lost IV access. K low today Had enema with excellent stool output and no further fevers. D/W infectious disease this was likely 2/2 constipation. Plan: ID consulted Cont empiric antibiotics - may need per PEG if IV access is an issue Replace K Disimpact stool - enema today CT Chest/abd/pelvis with IV and oral contrast per d/w ID, will need to look for abscess Vitals Vitals Vital Signs Date Time Temp Pulse Resp B/P (MAP) Pulse Ox O2 Delivery O2 Flow Rate FiO2 06/03/18 03:00 98.0 55 14 100/75 (83) 93 Room Air 98.0 Physical Exam Physical Exam GENERAL: Alert and oriented gentleman, not in distress. VITAL SIGNS: Stable HEENT: NAD. Both pupils are round and reacting. No conjunctival lesion, no lesion in the mouth. NECK: Supple, no JVP, no lymphadenopathy. LUNGS: Clear. HEART: S1, S2 regular. ABDOMEN: Benign. EXTREMITIES: No edema or cyanosis. NEUROLOGIC: The patient is a total care. General: Cooperative, No acute distress Lungs: Clear, Other Abdomen: Normal bowel sounds, Soft, No tenderness, No hepatosplenomegaly, No masses Extremities: No clubbing, No cyanosis, No edema, Normal pulses, No tenderness/ swelling Skin: No rashes, No breakdown, No significant lesion Assessment and Plan Assessmemt and Plan Problems Medical Problems: (1) Fever 106 degrees F or over Status: Acute (2) Systemic inflammatory response syndrome (SIRS) Status: Acute Comment Review of Relevant I have reviewed the following items madelyn (where applicable) has been applied. Labs Laboratory Tests Test 06/02/18 03:00 White Blood Count 3.3 x10^3/uL (4.0-11.0) Red Blood Count 4.59 x10^6/uL (4.30-5.70) Hemoglobin 13.2 g/dL (13.0-17.5) Hematocrit 40.2 % (39.0-53.0) Mean Corpuscular Volume 88 fL (79-100) Mean Corpuscular Hemoglobin 29 pg (25-35) Mean Corpuscular Hemoglobin Concent 33 g/dL (31-37) Red Cell Distribution Width 14.3 % (11.5-14.5) Platelet Count 227 x10^3/uL (140-400) Neutrophils (%) (Auto) 54 % (31-73) Lymphocytes (%) (Auto) 32 % (24-48) Monocytes (%) (Auto) 13 % (0-9) Eosinophils (%) (Auto) 1 % (0-3) Basophils (%) (Auto) 1 % (0-3) Neutrophils # (Auto) 1.8 x10^3uL (1.8-7.7) Lymphocytes # (Auto) 1.1 x10^3/uL (1.0-4.8) Monocytes # (Auto) 0.4 x10^3/uL (0.0-1.1) Eosinophils # (Auto) 0.0 x10^3/uL (0.0-0.7) Basophils # (Auto) 0.0 x10^3/uL (0.0-0.2) Sodium Level 141 mmol/L (136-145) Potassium Level 3.4 mmol/L (3.5-5.1) Chloride Level 103 mmol/L (98-107) Carbon Dioxide Level 28 mmol/L (21-32) Anion Gap 10 (6-14) Blood Urea Nitrogen 7 mg/dL (8-26) Creatinine 0.8 mg/dL (0.7-1.3) Estimated GFR (Cockcroft-Gault) 121.4 BUN/Creatinine Ratio 9 (6-20) Glucose Level 123 mg/dL (70-99) Calcium Level 8.7 mg/dL (8.5-10.1) Total Bilirubin 0.4 mg/dL (0.2-1.0) Aspartate Amino Transf (AST/SGOT) 27 U/L (15-37) Alanine Aminotransferase (ALT/SGPT) 28 U/L (16-63) Alkaline Phosphatase 84 U/L (46-116) Total Protein 6.9 g/dL (6.4-8.2) Albumin 2.6 g/dL (3.4-5.0) Albumin/Globulin Ratio 0.6 (1.0-1.7) Microbiology 05/31/18 Blood Culture - Preliminary, Resulted NO GROWTH AFTER 2 DAYS 05/29/18 Throat Culture - Final, Complete 05/29/18 - Final, Complete 05/30/18 Urine Culture - Final, Complete 05/30/18 Urine Culture Result 1 (GEMMA) - Final, Complete Medications Current Medications Sodium Chloride 1,000 ml @ 1,000 mls/hr Q1H IV Last administered on 05/29/18at 22:04; Start 05/29/18 at 22:00; Stop 05/29/18 at 22:59; Status DC Ibuprofen (Children'S Motrin) 500 mg 1X ONCE PO Last administered on at 22:04; Start 05/29/18 at 22:00; Stop 05/29/18 at 22:01; Status DC Sodium Chloride 1,000 ml @ 1,000 mls/hr 1X ONCE IV Last administered on at 00:27; Start 05/30/18 at 01:00; Stop 05/30/18 at 01:59; Status DC Vancomycin HCl 250 ml @ 250 mls/hr 1X ONCE IV ; Start 05/30/18 at 03:00; Stop 05/30/18 at 03:59; Status UNV Piperacillin Sod/ Tazobactam Sod 3.375 gm/Sodium Chloride 50 ml @ 100 mls/hr 1X ONCE IV Last administered on 05/30/18at 03:11; Start 05/30/18 at 03:15; Stop 05/30/18 at 03:44; Status DC Ondansetron HCl (Zofran) 4 mg PRN Q8HRS PRN IV NAUSEA/VOMITING 1ST CHOICE; Start 05/30/18 at 03:00; Stop 05/31/18 at 02:59; Status DC Sodium Chloride 1,000 ml @ 100 mls/hr Q10H IV Last administered on 05/30/18at 21:58; Start 05/30/18 at 03:00; Stop 05/31/18 at 02:59; Status DC Acetaminophen (Tylenol) 650 mg PRN Q4HRS PRN PO FEVER; Start 05/30/18 at 03:00 ; Stop 05/31/18 at 02:59; Status DC Vancomycin HCl 1.75 gm/Sodium Chloride 500 ml @ 250 mls/hr 1X ONCE IV Last administered on 05/30/18at 03:56; Start 05/30/18 at 04:00; Stop 05/30/18 at 05:59 ; Status DC Vancomycin HCl (Vanco Per Pharmacy) 1 each PRN DAILY PRN MC SEE COMMENTS Last administered on 06/02/18at 16:07; Start 05/30/18 at 03:00 Vancomycin HCl 1 gm/Sodium Chloride 250 ml @ 250 mls/hr Q12H IV Last administered on 06/03/18at 04:19; Start 05/30/18 at 16:00 Vancomycin HCl (Vancomycin Trough Level) 1 each 1X ONCE MC ; Start 05/31/18 at 15:30; Stop 05/31/18 at 15:31; Status DC Piperacillin Sod/ Tazobactam Sod 4.5 gm/Sodium Chloride 100 ml @ 200 mls/hr Q6HRS IV Last administered on 06/03/18at 05:38; Start 05/30/18 at 18:00 Lactobacillus Rhamnosus (Culturelle) 1 cap BID PO Last administered on at 21:00; Start 05/30/18 at 21:00 Acetaminophen (Tylenol) 650 mg PRN Q6HRS PRN PEG MILD PAIN / TEMP Last administered on 06/01/18at 04:35; Start 05/31/18 at 12:00 Iohexol (Omnipaque 300 Mg/ml) 75 ml 1X ONCE IV ; Start 06/01/18 at 11:15; Stop 06/01/18 at 11:16; Status DC Info (CONTRAST GIVEN -- Rx MONITORING) 1 each PRN DAILY PRN MC SEE COMMENTS; Start 06/01/18 at 11:15; Stop 06/03/18 at 11:14 Amlodipine Besylate (Norvasc) 10 mg DAILY PO ; Start 06/03/18 at 09:00 Aspirin (Children'S Aspirin) 81 mg DAILY PO Last administered on 06/02/18at 14: 56; Start 06/02/18 at 10:00 Atorvastatin Calcium (Lipitor) 40 mg HS PO Last administered on 06/02/18at 21:00 ; Start 06/02/18 at 21:00 Albuterol/ Ipratropium (Duoneb) 3 ml QIDPRN PRN IH SHORTNESS OF BREATH Last administered on 06/02/18at 11:12; Start 06/02/18 at 09:30 Magnesium Hydroxide (Milk Of Magnesia) 400 mg PRN DAILY PRN GT CONSTIPATION Last administered on 06/02/18at 14:55; Start 06/02/18 at 09:30 Artificial Tears (Artificial Tears) 1 drop PRN Q4HRS PRN OU DRY EYE; Start at 10:00 Citalopram Hydrobromide (CeleXA) 40 mg DAILY PO ; Start 06/03/18 at 09:00 Losartan Potassium (Cozaar) 100 mg DAILY PO ; Start 06/03/18 at 09:00 Non-Formulary Medication (Modafinil (Provigil)) 100 mg DAILY GT ; Start at 09:00; Stop 06/03/18 at 09:00; Status DC Scopolamine (Transderm-Scop) 1 patch Q3DAYS TD Last administered on 06/02/18at 10:00; Start 06/02/18 at 10:00 Docusate Sodium (Colace Solution) 100 mg PRN BID PRN GT CONSTIPATION; Start at 21:00 Lansoprazole (Prevacid) 30 mg DAILY PEG ; Start 06/03/18 at 09:00 Potassium Chloride (KCl Oral Soln) 40 meq 1X ONCE PEG Last administered on at 14:55; Start 06/02/18 at 11:30; Stop 06/02/18 at 11:31; Status DC Docusate Sodium (Enemeez) [address] Last administered on 06/02/18at 12: 00; Start 06/02/18 at 12:00; Stop 06/02/18 at 12:01; Status DC Lactulose (LACTULOSE 300ML for RECTAL) 200 gm PRN Q6[address]RS PR[address] constipation; Start 06/02/18 at 11:30 Iohexol (Omnipaque 240 Mg/ml) 50 ml STK-MED ONCE .ROUTE ; Start 06/02/18 at 19: 34; Stop 06/02/18 at 19:35; Status DC Active Scripts Active Reported Amlodipine Besylate 10 Mg Tablet 10 Mg PO DAILY Losartan Potassium 100 Mg Tablet 1 Tab PO PRN DAILY PRN Transderm-Scop (Scopolamine) 1 Each Patch.td72 1 Patch TP Q3DAYS Provigil (Modafinil) 100 Mg Tablet 100 Mg GT DAILY Prevacid (Lansoprazole) 30 Mg Tab.rap.dr 30 Mg DAILY Milk Of Magnesia (Magnesium Hydroxide) 400 Mg/5 Ml Oral.susp 400 Mg GT PRN DAILY PRN Lipitor (Atorvastatin Calcium) 40 Mg Tablet 40 Mg PO HS Lexapro (Escitalopram Oxalate) 20 Mg Tablet 20 Mg PO DAILY Duoneb 0.5 Mg-3 Mg/3 Ml Soln (Ipratropium/Albuterol Sulfate) 3 Ml Ampul.neb 3 Ml IH QIDPRN PRN [colace syrup] 25 Ml GT PRN BID PRN Aspirin 81 Mg Tab.chew 81 Mg PO DAILY Artificial Tears Drops (Dextran 70/Hypromellose/Pf) 1 Each Droperette 1 Each OU PRN Q4HRS PRN Vitals/I & O Vital Sign - Last 24 Hours 3/06/02/18 06/02/18 06/02/18 08:20 11:00 11:14 15:00 Temp 98.2 97.4 98.2 97.4 Pulse 68 76 Resp 16 17 B/P (MAP) 102/70 (81) 118/61 (80) Pulse Ox 97 94 94 O2 Delivery Room Air Room Air Room Air Room Air 06/02/18 06/02/18 06/02/18 06/03/18 19:00 20:00 23:00 03:00 Temp 98.6 97.5 98.0 98.6 97.5 98.0 Pulse 74 63 55 Resp 14 14 14 B/P (MAP) 109/62 (78) 96/73 (81) 100/75 (83) Pulse Ox 98 94 93 O2 Delivery Room Air Room Air Room Air Room Air Intake and Output 06/02/18 06/02/18 06/03/18 15:00 23:00 07:00 Intake Total 1193 ml 200 ml 0 ml Balance 1193 ml 200 ml 0 ml Nutrition Consultation Dietary Evaluation: Recommendations by RD: PPN/TPN Comments: Recommend Jevity 1.5, 230mL (1 italo) 5x/day w/ 250mL flushes w/ each bolus. Expected Outcomes/Goals: tolerate bolus TF- met, ongoing TF to meet >75% estimated energy/protein needs- not met, ongoing Malnutrition Findings: Food and Nutrition Intake (Mod: <75% est energy req 7days Body Fat Depletion (Non Severe: Mod to Severe Weight Status: Appropriate DENIA RENDON MD Jun 03, 2018 08:17
[2018-06-03] MEDS: LACTOBACILLUS RHAMNOSUS GG 1 CAPSULE. PO SCH (08:48)
[2018-06-03] MEDS: ASPIRIN CHEWABLE 81 MG TABLET. PO SCH (08:49)
[2018-06-03] MEDS ORDERED: amLODIPine BESYLATE 10 MG TABLET PO SCH (09:00)
[2018-06-03] MEDS ORDERED: CITALOPRAM 20 MG TABLET. PO SCH (09:00)
[2018-06-03] MEDS ORDERED: LANSOPRAZOLE 30 MG TAB.RAP.DR PEG SCH (09:00)
[2018-06-03] MEDS ORDERED: LOSARTAN POTASSIUM 50 MG TABLET. PO SCH (09:00)
[2018-06-03] MEDS ORDERED: MODAFINIL 100 MG GT SCH (09:00)
--- NOTE | 2018-06-03 10:20 | PDOC ---
Infectious Disease Note Subjective Subjective pt is awake, responded well ROS ROS no n/v/d/ Vital Sign Vital Signs Vital Signs Date Time Temp Pulse Resp B/P (MAP) Pulse Ox O2 Delivery O2 Flow Rate FiO2 06/03/18 08:47 57 93/63 06/03/18 07:00 98.3 18 97 Room Air 98.3 Physical Exam PHYSICAL EXAM GENERAL: Alert and oriented gentleman, not in distress. VITAL SIGNS: Stable HEENT: NAD. Both pupils are round and reacting. No conjunctival lesion, no lesion in the mouth. NECK: Supple, no JVP, no lymphadenopathy. LUNGS: Clear. HEART: S1, S2 regular. ABDOMEN: Benign. EXTREMITIES: No edema or cyanosis. NEUROLOGIC: The patient is a total care. Labs Micro Microbiology 05/29/18 Blood Culture - Preliminary, Resulted NO GROWTH AFTER 1 DAY Objective Assessment 1. Fever, possible viral infection, possible aspiration. 2. Cerebrovascular accident. 3. History of hypertension. 4. History of gastroesophageal reflux disease. 5. Leukocytosis Plan Plan of Care d/c vanc and zosyn check cultures check procal supportive care recheck influenza ct noted ok to d/c LEVI SINGH MD Jun 03, 2018 10:20
[2018-06-03 11:00] VITALS: BP 92/63
--- NOTE | 2018-06-03 11:51 | SNU/HH DC ---
DISCHARGE WITH HOME HEALTH DISCHARGE INFORMATION: Discharge Date: Jun 03, 2018 Final Diagnosis: Problems Medical Problems: (1) Fever 106 degrees F or over Status: Acute (2) Systemic inflammatory response syndrome (SIRS) Status: Acute Condition on Discharge: Stable CODE STATUS: Code Status: Full HOME HEALTH: Face to Face: I certify this patient is under my care and that I, or a nurse practitioner or physician's embroidery assistant working with me, had a face to face encounter that meets the physician face to face encounter requirements with this patient on 06/03/18. Medical Complications: Dementia Care Home For: Admin/Educate Injections, Assess/Skilled Observatio, Bowel /Bladder Training, Enteral Feeding Care, Medication Management Physical Therapy For: Evalulation/Treatment Occupational Therapy For: Evaluation/Treatment CUSTOMER MANAGEMENT SPECIALIST For: Community Resources POST DISCHARGE ORDERS: Activity Instructions for Disc: Avoid exertion Weight Bearing Status after Di: No restrictions DIET AFTER DISCHARGE: Cardiac CHECKS AFTER DISCHARGE: Checks after discharge: Check blood press - daily TREATMENT/EQUIPMENT ORDERS: Adaptive Equipment Issued: None, Wheelchair CERTIFICATION STATEMENT: Certification Statement: Certification Statement: Based on the above finding, I certify that this patient is confined to the home and needs intermittent snf care, physical therapy and/or speech therapy, or continues to need occupational therapy.~ This patient is under my care, and I have initiated the establishment of the plan of care.~ This patient will be followed by myself or a community physician who will periodically review the plan of care. Home Meds Reported Medications Amlodipine Besylate (AMLODIPINE BESYLATE) 10 Mg Tablet, 10 MG PO DAILY for high bp 05/30/18 Losartan Potassium (LOSARTAN POTASSIUM) 100 Mg Tablet, 1 TAB PO PRN DAILY PRN for HYPERTENSION, SEE COMMENTS 05/30/18 Scopolamine (TRANSDERM-SCOP) 1 Each Patch.td72, 1 PATCH TP Q3DAYS for secretions , #4 PATCH 03/01/18 Modafinil (PROVIGIL) 100 Mg Tablet, 100 MG GT DAILY 08/01/13 Lansoprazole (PREVACID) 30 Mg Tab.rap.dr, 30 MG DAILY 08/01/13 Magnesium Hydroxide (MILK OF MAGNESIA) 400 Mg/5 Ml Oral.susp, 400 MG GT PRN DAILY PRN for CONSTIPATION 08/01/13 Atorvastatin Calcium (LIPITOR) 40 Mg Tablet, 40 MG PO HS 08/01/13 Escitalopram Oxalate (LEXAPRO) 20 Mg Tablet, 20 MG PO DAILY 08/01/13 Ipratropium/Albuterol Sulfate (DUONEB 0.5 MG-3 MG/3 ML SOLN) 3 Ml Ampul.neb, 3 ML IH QIDPRN PRN for SHORTNESS OF BREATH 08/01/13 [colace syrup] No Conflict Check, 25 ML GT PRN BID PRN for CONSTIPATION 08/01/13 Aspirin (ASPIRIN) 81 Mg Tab.chew, 81 MG PO DAILY, TAB.CHEW 08/01/13 Dextran 70/Hypromellose/Pf (ARTIFICIAL TEARS DROPS) 1 Each Droperette, 1 EACH OU PRN Q4HRS PRN for DRY EYE 08/01/13 DENIA RENDON MD Jun 03, 2018 11:51
--- NOTE | 2018-06-03 11:56 | PDOC3 ---
Discharge Summary Visit Information Date of Admission: May 30, 2018 Date of Discharge: Jun 03, 2018 Admitting Diagnosis: Fever Final Diagnosis Problems Medical Problems: (1) Fever 106 degrees F or over Status: Acute (2) Systemic inflammatory response syndrome (SIRS) Status: Acute Brief Hospital Course Allergies Allergies Coded Allergies Type Severity Reaction Last Updated Verified No Known Drug Allergies 09/30/15 No Vital Signs Vital Signs Date Time Temp Pulse Resp B/P (MAP) Pulse Ox O2 Delivery O2 Flow Rate FiO2 06/03/18 08:47 57 93/63 06/03/18 08:00 Room Air 06/03/18 07:00 98.3 18 97 98.3 Lab Results Laboratory Tests Test 06/02/18 03:00 White Blood Count 3.3 x10^3/uL (4.0-11.0) Red Blood Count 4.59 x10^6/uL (4.30-5.70) Hemoglobin 13.2 g/dL (13.0-17.5) Hematocrit 40.2 % (39.0-53.0) Mean Corpuscular Volume 88 fL (79-100) Mean Corpuscular Hemoglobin 29 pg (25-35) Mean Corpuscular Hemoglobin Concent 33 g/dL (31-37) Red Cell Distribution Width 14.3 % (11.5-14.5) Platelet Count 227 x10^3/uL (140-400) Neutrophils (%) (Auto) 54 % (31-73) Lymphocytes (%) (Auto) 32 % (24-48) Monocytes (%) (Auto) 13 % (0-9) Eosinophils (%) (Auto) 1 % (0-3) Basophils (%) (Auto) 1 % (0-3) Neutrophils # (Auto) 1.8 x10^3uL (1.8-7.7) Lymphocytes # (Auto) 1.1 x10^3/uL (1.0-4.8) Monocytes # (Auto) 0.4 x10^3/uL (0.0-1.1) Eosinophils # (Auto) 0.0 x10^3/uL (0.0-0.7) Basophils # (Auto) 0.0 x10^3/uL (0.0-0.2) Sodium Level 141 mmol/L (136-145) Potassium Level 3.4 mmol/L (3.5-5.1) Chloride Level 103 mmol/L (98-107) Carbon Dioxide Level 28 mmol/L (21-32) Anion Gap 10 (6-14) Blood Urea Nitrogen 7 mg/dL (8-26) Creatinine 0.8 mg/dL (0.7-1.3) Estimated GFR (Cockcroft-Gault) 121.4 BUN/Creatinine Ratio 9 (6-20) Glucose Level 123 mg/dL (70-99) Calcium Level 8.7 mg/dL (8.5-10.1) Total Bilirubin 0.4 mg/dL (0.2-1.0) Aspartate Amino Transf (AST/SGOT) 27 U/L (15-37) Alanine Aminotransferase (ALT/SGPT) 28 U/L (16-63) Alkaline Phosphatase 84 U/L (46-116) Total Protein 6.9 g/dL (6.4-8.2) Albumin 2.6 g/dL (3.4-5.0) Albumin/Globulin Ratio 0.6 (1.0-1.7) Brief Hospital Course Mr Georges is a 57-year-old male w/ PMHx prior CVA, dysphagia s/p PEG, seizures, non-verbal who presents with report of high fever at home that had been 106.1 earlier in the evening per his caregiver. Patient was given Tylenol and mother indicates the temperature had come down to a little above 98. She states that she had checked it again a few hours later and temperature was back up to 102. She decided that she better bring the patient in. Patient mother states that patient has had no mental status changes. Had fever 101.9F here, leukocytosis and negative rapid flu and negative strep A rapid. Procalcitonin elevated. CXR not significant 05/31: He is covered by a blanket this morning. Spikes a fever after I leave the room. 06/01: CT shows right lower lobe consolidation and large impacted stool 06/02: Still febrile > 100.4F this morning. Cultures pending. Repeat flu negative. He appears comfortable and has no complaints. Good skin integrity. Lost IV access. K low today. DISIMPACTED STOOL WITH GOOD RELIEF Had enema with excellent stool output, d/w ID his fevers were likely 2/2 stool impaction and after disimpaction he improved. Greater than 30 minutes spent on discharge. A/P: Fever - sepsis of unclear etiology at this point. F/u blood cultures. Empiric antibiotics given. Consulted ID h/o CVA with rt paralysis. OT for repositioning with contractures htn - cont meds hld - cont meds h/o seizure - not on anti-epileptics constipation - will cont bowel regimen aphasia - nods yes and no dysphagia with PEG - cont tube feeds hydrocephalus - s/p EMBOSSING UNIT OPERATOR shunt, appeared to be functioning well with peritoneal drain patent BECKY, vasomotor - will give gentle IVF with h/o ckd2 Plan: ID consulted Replace K Disimpact stool - enema worked CT Chest/abd/pelvis with IV and oral contrast per d/w ID found stool impaction Discharge Information Condition at Discharge: Improved Follow Up: Weeks (2) Disposition/Orders: D/C to Home w/ HH Scheduled Amlodipine Besylate (Amlodipine Besylate) 10 Mg Tablet, 10 MG PO DAILY for high bp, (Reported) Entered as Reported by: BRANDON THORPE on 05/30/18406 Last Action: Continued on 06/02/18945 by LASHON LOVE Aspirin (Aspirin) 81 Mg Tab.chew, 81 MG PO DAILY, (Reported) Entered as Reported by: ROMMEL MACIEL on 08/01/13921 Last Action: Continued on 06/02/18945 by LASHON LOVE Atorvastatin Calcium (Lipitor) 40 Mg Tablet, 40 MG PO HS, (Reported) Entered as Reported by: ROMMEL MACIEL on 08/01/13925 Last Action: Continued on 06/02/18945 by LASHON LOVE Escitalopram Oxalate (Lexapro) 20 Mg Tablet, 20 MG PO DAILY, (Reported) Entered as Reported by: ROMMEL MACIEL on 08/01/13925 Last Action: Converted on 06/02/18945 by LASHON LOVE Lansoprazole (Prevacid) 30 Mg Tab.rap.dr, 30 MG DAILY, (Reported) Entered as Reported by: ROMMEL MACIEL on 08/01/13929 Last Action: Continued on 06/02/18945 by LASHON LOVE Modafinil (Provigil) 100 Mg Tablet, 100 MG GT DAILY, (Reported) Entered as Reported by: ROMMEL MACIEL on 08/01/13929 Last Action: Converted on 06/02/18945 by LASHON LOVE Scopolamine (Transderm-Scop) 1 Each Patch.td72, 1 PATCH TP Q3DAYS for secretions , #4 (Reported) Entered as Reported by: Tameka Mitchell on 03/01/18 0443 Last Action: Converted on 06/02/18945 by LASHON LOVE Scheduled PRN Dextran 70/Hypromellose/Pf (Artificial Tears Drops) 1 Each Droperette, 1 EACH OU PRN Q4HRS PRN for DRY EYE, (Reported) Entered as Reported by: ROMMEL MACIEL on 08/01/13921 Last Action: Converted on 06/02/18945 by LASHON LOVE Ipratropium/Albuterol Sulfate (Duoneb 0.5 Mg-3 Mg/3 Ml Soln) 3 Ml Ampul.neb, 3 ML IH QIDPRN PRN for SHORTNESS OF BREATH, (Reported) Entered as Reported by: ROMMEL MACIEL on 08/01/13924 Last Action: Continued on 06/02/18945 by LASHON LOVE Losartan Potassium (Losartan Potassium) 100 Mg Tablet, 1 TAB PO PRN DAILY PRN for HYPERTENSION, SEE COMMENTS, (Reported) Entered as Reported by: BRANDON THORPE on 05/30/18406 Last Action: Converted on 06/02/18945 by LASHON LOVE Magnesium Hydroxide (Milk Of Magnesia) 400 Mg/5 Ml Oral.susp, 400 MG GT PRN DAILY PRN for CONSTIPATION, (Reported) Entered as Reported by: ROMMEL MACIEL on 08/01/13927 Last Action: Continued on 06/02/18945 by LASHON LOVE [colace syrup] , 25 ML GT PRN BID PRN for CONSTIPATION, (Reported) Entered as Reported by: ROMMEL MACIEL on 08/01/13923 Last Action: Converted on 06/02/18945 by DENIA BORREGO MD Jun 03, 2018 11:56
--- NOTE | 2018-06-03 12:42 | NUR ---
MAGDALENA following. Discussed with RN, pt is ready to discharge today - MAGDALENA faxed discharge paperwork to [facility]. Family will transport pt home. RN notified.
--- NOTE | 2018-06-03 14:12 | NUR ---
Patient discharged home with home health. Home health set up by Junie NICHOLS, and approved. Patient family understands discharge instructions. Patient alert and stable upon discharge. IV line discontinued. All belongings with patient. Patient picked up by family in wheelchair van, accompanied by Ceasar OQUENDO downstairs.
== END 2018-06-03 14:18 | disposition home health service (06) | DRG 871 ==
LOC: ER 20:56 → 5 SOUTH 05-30 02:45
PROVIDERS: ADMIT Internal Medicine; ATTEND Internal Medicine
DX: A41.9 Sepsis, unspecified organism (principal); N17.0 Acute kidney failure with tubular necrosis; G91.9 Hydrocephalus, unspecified; I69.951 Hemiplegia and hemiparesis following unspecified cerebrovascular disease affecting right dominant side; G40.909 Epilepsy, unspecified, not intractable, without status epilepticus; K56.41 Fecal impaction; K21.9 Gastro-esophageal reflux disease without esophagitis; N18.2 Chronic kidney disease, stage 2 (mild); E78.5 Hyperlipidemia, unspecified; I12.9 Hypertensive chronic kidney disease with stage 1 through stage 4 chronic kidney disease, or unspecified chronic kidney disease; E78.00 Pure hypercholesterolemia, unspecified; Z93.1 Gastrostomy status; Z98.2 Presence of cerebrospinal fluid drainage device; Z82.49 Family history of ischemic heart disease and other diseases of the circulatory system
CPT/HCPCS: 36415; 71045; 71250; 74176; 80048; 80053; 80202; 81001; 83605; 84145; 85007; 85025; 87040; 87070; 87086; 87804; 87880; 94640; 94760; J2543; J3370; J7030; J7040; J7050; J7620

== ENCOUNTER 2018-09-21 12:56 | Emergency (ER) | payer OTHER ==
[~2018-09-21] VITALS: Ht 182.9 cm; Wt 72.6 kg
[~2018-09-21 12:56] MED LIST changes: +AMLO10TA8 PO; +LOSA100T14 PO
[2018-09-21] MEDS ORDERED: DEXAMETHASONE SOD PHOS 20 MG/5 ML VIAL. IV ONE (14:00)
--- NOTE | 2018-09-21 14:29 | RAD ---
Chest radiograph 09/21/2018 1:51 PM INDICATION: Cough COMPARISON: May 29, 2018 TECHNIQUE: Frontal view of the chest is provided. FINDINGS: The cardiomediastinal silhouette is within normal limits. Ventriculoperitoneal shunt catheter is identified coursing along the right chest wall. Visualized catheter appears intact. There are no pleural effusions. There is no pulmonary vascular congestion. There is no pneumothorax. The lungs are clear. Suspect calcified lymphadenopathy within the hilar region. Moderate left glenohumeral osteoarthrosis. Chronic remodeling of the left humeral head. 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 IMPRESSION: No acute cardiopulmonary process. Electronically signed by: Andie Rudd MD (09/21/2018 2:26 PM) [id number]
[2018-09-21 14:53] LABS: BILIRUBIN,URINE NEGATIVE (NEG); CLARITY,URINE CLEAR; COLOR,URINE YELLOW; NITRITE,URINE NEGATIVE (NEG); PROTEIN,URINE NEGATIVE (NEG-TRACE)
--- NOTE | 2018-09-21 14:53 | PHYS DOC ---
Past Medical History Past Medical History: Constipation, CVA, GERD, High Cholesterol, Hypertension, Seizure, Other Additional Past Medical Histor: cerebvasc disease, resp failure, hydrocephalus, dysphagia,epilepsy Past Surgical History: Other Additional Past Surgical Histo: G-tube, neuro stimulator (BACLOFEN PUMP) Alcohol Use: None Drug Use: None Adult General Chief Complaint Chief Complaint: COUGH HPI HPI Patient is a 58 year old [f__sex] who presents with [] Review of Systems Review of Systems Constitutional: Denies fever or chills [] Eyes: Denies change in visual acuity, redness, or eye pain [] HENT: Denies nasal congestion or sore throat [] Respiratory: Denies cough or shortness of breath [] Cardiovascular: No additional information not addressed in HPI [] GI: Denies abdominal pain, nausea, vomiting, bloody stools or diarrhea [] : Denies dysuria or hematuria [] Musculoskeletal: Denies back pain or joint pain [] Integument: Denies rash or skin lesions [] Neurologic: Denies headache, focal weakness or sensory changes [] Endocrine: Denies polyuria or polydipsia [] All other systems were reviewed and found to be within normal limits, except as documented in this note. Current Medications Current Medications Current Medications Medications (Trade) Dose Ordered Sig/Vin Start Time Stop Time Status Last Admin Dose Admin Dexamethasone Sodium Phosphate (Decadron) 10 mg 1X ONCE 09/21/18 14:00 09/21/18 14:01 DC 09/21/18 14:29 10 MG Allergies Allergies Allergies Coded Allergies Type Severity Reaction Last Updated Verified No Known Drug Allergies 09/30/15 No Physical Exam Physical Exam Constitutional: Well developed, well nourished, no acute distress, non-toxic appearance. [] HENT: Normocephalic, atraumatic, bilateral external ears normal, oropharynx moist, no oral exudates, nose normal. [] Eyes: PERRLA, EOMI, conjunctiva normal, no discharge. [] Neck: Normal range of motion, no tenderness, supple, no stridor. [] Cardiovascular:Heart rate regular rhythm, no murmur [] Lungs & Thorax: Bilateral breath sounds clear to auscultation [] Abdomen: Bowel sounds normal, soft, no tenderness, no masses, no pulsatile masses. [] Skin: Warm, dry, no erythema, no rash. [] Back: No tenderness, no CVA tenderness. [] Extremities: No tenderness, no cyanosis, no clubbing, ROM intact, no edema. [] Neurologic: Alert and oriented X 3, normal motor function, normal sensory function, no focal deficits noted. [] Psychologic: Affect normal, judgement normal, mood normal. [] Current Patient Data Vital Signs Vital Signs Date Time Temp Pulse Resp B/P (MAP) Pulse Ox O2 Delivery O2 Flow Rate FiO2 09/21/18 13:22 98.8 79 18 114/82 (93) 95 Room Air 98.8 Lab Values Laboratory Tests Test 09/21/18 14:10 09/21/18 14:25 Urine Collection Type U cath Urine Color Yellow Urine Clarity Clear Urine pH 8.0 Urine Specific [place] 1.020 Urine Protein Negative mg/dL (NEG-TRACE) Urine Glucose (UA) Negative mg/dL (NEG) Urine Ketones (Stick) Negative mg/dL (NEG) Urine Blood Negative (NEG) Urine Nitrite Negative (NEG) Urine Bilirubin Negative (NEG) Urine Urobilinogen Dipstick 1.0 mg/dL (0.2 mg/dL) Urine Leukocyte Esterase Negative (NEG) Urine RBC 1-2 /HPF (0-2) Urine WBC Occ /HPF (0-4) Urine Transitional Epithelial Cells Few /LPF Urine Bacteria 0 /HPF (0-FEW) Urine Mucus Slight /LPF White Blood Count 5.7 x10^3/uL (4.0-11.0) Red Blood Count 4.89 x10^6/uL (4.30-5.70) Hemoglobin 14.2 g/dL (13.0-17.5) Hematocrit 42.8 % (39.0-53.0) Mean Corpuscular Volume 88 fL (79-100) Mean Corpuscular Hemoglobin 29 pg (25-35) Mean Corpuscular Hemoglobin Concent 33 g/dL (31-37) Red Cell Distribution Width 13.8 % (11.5-14.5) Platelet Count 236 x10^3/uL (140-400) Neutrophils (%) (Auto) 61 % (31-73) Lymphocytes (%) (Auto) 27 % (24-48) Monocytes (%) (Auto) 10 % (0-9) H Eosinophils (%) (Auto) 2 % (0-3) Basophils (%) (Auto) 0 % (0-3) Neutrophils # (Auto) 3.5 x10^3/uL (1.8-7.7) Lymphocytes # (Auto) 1.6 x10^3/uL (1.0-4.8) Monocytes # (Auto) 0.6 x10^3/uL (0.0-1.1) Eosinophils # (Auto) 0.1 x10^3/uL (0.0-0.7) Basophils # (Auto) 0.0 x10^3/uL (0.0-0.2) Sodium Level 142 mmol/L (136-145) Potassium Level 4.1 mmol/L (3.5-5.1) Chloride Level 103 mmol/L (98-107) Carbon Dioxide Level 34 mmol/L (21-32) H Anion Gap 5 (6-14) L Blood Urea Nitrogen 17 mg/dL (8-26) Creatinine 1.0 mg/dL (0.7-1.3) Estimated GFR (Cockcroft-Gault) 93.5 BUN/Creatinine Ratio 17 (6-20) Glucose Level 73 mg/dL (70-99) Lactic Acid Level 1.2 mmol/L (0.4-2.0) Calcium Level 9.2 mg/dL (8.5-10.1) Magnesium Level 2.0 mg/dL (1.8-2.4) Total Bilirubin 0.4 mg/dL (0.2-1.0) Aspartate Amino Transferase (AST) 16 U/L (15-37) Alanine Aminotransferase (ALT) 24 U/L (16-63) Alkaline Phosphatase 95 U/L (46-116) Total Protein 7.8 g/dL (6.4-8.2) Albumin 3.1 g/dL (3.4-5.0) L Albumin/Globulin Ratio 0.7 (1.0-1.7) L Laboratory Tests 09/21/18 14:25 Laboratory Tests 09/21/18 14:25 EKG EKG [] Radiology/Procedures Radiology/Procedures PROCEDURE: PORTABLE CHEST 1V Chest radiograph 09/21/2018 1:51 PM INDICATION: Cough COMPARISON: May 29, 2018 TECHNIQUE: Frontal view of the chest is provided. FINDINGS: The cardiomediastinal silhouette is within normal limits. Ventriculoperitoneal shunt catheter is identified coursing along the right chest wall. Visualized catheter appears intact. There are no pleural effusions. There is no pulmonary vascular congestion. There is no pneumothorax. The lungs are clear. Suspect calcified lymphadenopathy within the hilar region. Moderate left glenohumeral osteoarthrosis. Chronic remodeling of the left humeral head. 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 IMPRESSION: No acute cardiopulmonary process. Electronically signed by: Andie Rudd MD (09/21/2018 2:26 PM) [id number] Course & Med Decision Making Course & Med Decision Making Pertinent Labs and Imaging studies reviewed. (See chart for details) [] Dragon Disclaimer Dragon Disclaimer This electronic medical record was generated, in whole or in part, using a voice recognition dictation system. Departure Departure Impression: Primary Impression: Upper respiratory infection Disposition: 01 HOME, SELF-CARE Condition: STABLE Referrals: HERMINIO JACOBS (PCP) Patient Instructions: Upper Respiratory Infection, Adult, [id number] Additional Instructions: Use humidifier at night and when patient is sleeping. Problem Qualifiers Primary Impression: Upper respiratory infection URI type: unspecified URI Qualified Codes: J06.9 - Acute upper respiratory infection, unspecified ROB COON DO Sep 21, 2018 14:53
[2018-09-21 14:56] LABS: BASO % 0 % (0-3); EOS # 0.1 x10^3/uL (0.0-0.7); EOS % 2 % (0-3); HEMATOCRIT 42.8 % (39.0-53.0); HEMOGLOBIN 14.2 g/dL (13.0-17.5); LYMPH # 1.6 x10^3/uL (1.0-4.8); LYMPH % 27 % (24-48); MEAN CORPUSCULAR HEMOGLOBIN 29 pg (25-35); MEAN CORPUSCULAR HGB CONC 33 g/dL (31-37); MEAN CORPUSCULAR VOLUME 88 fL (79-100); MONO # 0.6 x10^3/uL (0.0-1.1); MONO % 10 % (0-9); NEUT # 3.5 x10^3/uL (1.8-7.7); NEUT % 61 % (31-73); PLATELET COUNT 236 x10^3/uL (140-400); RED BLOOD COUNT 4.89 x10^6/uL (4.30-5.70); RED CELL DISTRIBUTION WIDTH 13.8 % (11.5-14.5); WHITE BLOOD COUNT 5.7 x10^3/uL (4.0-11.0)
[2018-09-21 14:59] LABS: CALCIUM 9.2 mg/dL (8.5-10.1); GFR 93.5; POTASSIUM 4.1 mmol/L (3.5-5.1)
[2018-09-21 15:02] LABS: BACTERIA,URINE 0 /HPF (0-FEW); WBC,URINE OCC /HPF (0-4)
[2018-09-21 15:05] LABS: ALBUMIN 3.1 g/dL (3.4-5.0); ALBUMIN/GLOBULIN RATIO 0.7 (1.0-1.7); TOTAL BILIRUBIN 0.4 mg/dL (0.2-1.0); TOTAL PROTEIN 7.8 g/dL (6.4-8.2)
[2018-09-21 15:55] VITALS: BP 115/83
== END 2018-09-21 16:56 | disposition home or self-care (01) ==
LOC: ER 12:56
DX: J06.9 Acute upper respiratory infection, unspecified (principal); K21.9 Gastro-esophageal reflux disease without esophagitis; E78.00 Pure hypercholesterolemia, unspecified; I10 Essential (primary) hypertension; Z86.73 Personal history of transient ischemic attack (TIA), and cerebral infarction without residual deficits
CPT/HCPCS: 36415; 71045; 80053; 81001; 83605; 83735; 85025; 96374; 99285; J1100

== ENCOUNTER 2018-11-22 07:40 | Emergency (ER) | payer OTHER ==
[~2018-11-22] VITALS: Ht 175.3 cm; Wt 72.6 kg
[~2018-11-22 07:40] MED LIST changes: -AMLO1CAP12 PO; +AMLO1CAP13 PO
[2018-11-22] MEDS ORDERED: IV NORMAL SALINE 1000ML BAG 1,000 ML IV SCH (08:03)
--- NOTE | 2018-11-22 08:08 | PHYS DOC ---
Past Medical History Past Medical History: Constipation, CVA, GERD, High Cholesterol, Hypertension, Seizure, Other Additional Past Medical Histor: cerebvasc disease, resp failure, hydrocephalus, dysphagia,epilepsy Past Surgical History: Other Additional Past Surgical Histo: G-tube, neuro stimulator (BACLOFEN PUMP) Alcohol Use: None Drug Use: None Adult General Chief Complaint Chief Complaint: GI PROBLEM HPI HPI Patient is a 58-year-old -[place] male, who arrives in the emergency department with his mother. He is "total care", after suffering a devastating hemorrhagic stroke several years ago. The patient's mother states that this morning she noticed him to be somewhat diaphoretic, and he appeared uncomfortable, and his abdomen appeared more distended. He has vomited since arrival in the emergency department. The patient is unable to verbalize any pain. He appears mildly tachypnea, and his oxygen saturation is marginal. He has not had any diarrhea. History is limited secondary to patient's inability to provide any meaningful history. Review of Systems Review of Systems Unable to obtain review of systems, secondary to patient's mental status, but the patient's mother denies any fever, obvious cough, or obvious respiratory distress. He has not had any changes in his mental status. Current Medications Current Medications Current Medications Medications (Trade) Dose Ordered Sig/Vin Start Time Stop Time Status Last Admin Dose Admin Info (CONTRAST GIVEN -- Rx MONITORING) 1 each PRN DAILY PRN 11/22/18 09:15 11/22/18 12:34 DC Iohexol (Omnipaque 300 Mg/ml) 75 ml 1X ONCE 11/22/18 09:15 11/22/18 09:16 DC 11/22/18 10:02 75 ML Sodium Monofluorophosphate (Fleet Adult) 133 ml 1X ONCE 11/22/18 11:15 11/22/18 11:17 DC 11/22/18 11:16 133 ML Sodium Chloride 1,000 ml @ 1,000 mls/hr Q1H 11/22/18 08:03 11/22/18 09:02 DC 11/22/18 09:15 1,000 MLS/HR Allergies Allergies Allergies Coded Allergies Type Severity Reaction Last Updated Verified No Known Drug Allergies 09/30/15 No Physical Exam Physical Exam PHYSICAL EXAM: CONSTITUTIONAL: Well developed, well nourished HEAD: normocephalic, atraumatic EENT: PERRL, EOMI. Conjunctivae normal color, sclerae non-icteric; moist mucous membranes. NECK: Supple, non-tender; no meningismus. LUNGS: There are some crackles in the lung bases bilaterally, otherwise Lungs CTA, breathing is very mildly. Normal air movement. HEART: Regular rate and rhythm, no murmur CHEST: No deformity; non-tender ABDOMEN: The abdomen is soft, there is a G-tube present in the abdomen, there is mild abdominal distention with slightly high-pitched bowel sounds, with mild diffuse tenderness without focal tenderness, rebound, or guarding, there is a baclofen pump in the right mid abdomen, no masses or bruits. EXTREM: Normal ROM; no deformity, no calf tenderness. Normal pulses palpable in all extremities. There is no pedal edema. SKIN: No rash; no diaphoresis NEURO: Alert; patient is nonverbal, has no significant movement of his extremities. BACK: No CVA TTP. Current Patient Data Vital Signs Vital Signs Date Time Temp Pulse Resp B/P (MAP) Pulse Ox O2 Delivery O2 Flow Rate FiO2 11/22/18 11:48 87 16 94/51 (65) 94 Room Air 11/22/18 08:27 89.2 89.2 Lab Values Laboratory Tests Test 11/22/18 08:18 11/22/18 09:35 White Blood Count 14.3 x10^3/uL (4.0-11.0) H Red Blood Count 5.43 x10^6/uL (4.30-5.70) Hemoglobin 16.2 g/dL (13.0-17.5) Hematocrit 48.1 % (39.0-53.0) Mean Corpuscular Volume 89 fL (79-100) Mean Corpuscular Hemoglobin 30 pg (25-35) Mean Corpuscular Hemoglobin Concent 34 g/dL (31-37) Red Cell Distribution Width 14.5 % (11.5-14.5) Platelet Count 249 x10^3/uL (140-400) Neutrophils (%) (Auto) 81 % (31-73) H Lymphocytes (%) (Auto) 10 % (24-48) L Monocytes (%) (Auto) 8 % (0-9) Eosinophils (%) (Auto) 0 % (0-3) Basophils (%) (Auto) 0 % (0-3) Neutrophils # (Auto) 11.6 x10^3/uL (1.8-7.7) H Lymphocytes # (Auto) 1.4 x10^3/uL (1.0-4.8) Monocytes # (Auto) 1.2 x10^3/uL (0.0-1.1) H Eosinophils # (Auto) 0.0 x10^3/uL (0.0-0.7) Basophils # (Auto) 0.0 x10^3/uL (0.0-0.2) Prothrombin Time 14.6 SEC (11.7-14.0) H Prothrombin Time INR 1.2 (0.8-1.1) H Sodium Level 140 mmol/L (136-145) Potassium Level 3.7 mmol/L (3.5-5.1) Chloride Level 103 mmol/L (98-107) Carbon Dioxide Level 23 mmol/L (21-32) Anion Gap 14 (6-14) Blood Urea Nitrogen 22 mg/dL (8-26) Creatinine 1.0 mg/dL (0.7-1.3) Estimated GFR (Cockcroft-Gault) 93.5 BUN/Creatinine Ratio 22 (6-20) H Glucose Level 125 mg/dL (70-99) H Lactic Acid Level 2.1 mmol/L (0.4-2.0) H Calcium Level 9.3 mg/dL (8.5-10.1) Total Bilirubin 0.8 mg/dL (0.2-1.0) Aspartate Amino Transferase (AST) 24 U/L (15-37) Alanine Aminotransferase (ALT) 16 U/L (16-63) Alkaline Phosphatase 115 U/L (46-116) Troponin I Quantitative < 0.017 ng/mL (0.000-0.055) FN-Cda-J-Type Natriuretic Peptide 2003 pg/mL (0-124) H Total Protein 8.7 g/dL (6.4-8.2) H Albumin 3.5 g/dL (3.4-5.0) Albumin/Globulin Ratio 0.7 (1.0-1.7) L Lipase 45 U/L (73-393) L Urine Collection Type U cath Urine Color [place] Urine Clarity Clear Urine pH 5.5 Urine Specific [place] >=1.030 Urine Protein 30 mg/dL (NEG-TRACE) Urine Glucose (UA) Negative mg/dL (NEG) Urine Ketones (Stick) Trace mg/dL (NEG) Urine Blood Moderate (NEG) Urine Nitrite Negative (NEG) Urine Bilirubin Negative (NEG) Urine Urobilinogen Dipstick 1.0 mg/dL (0.2 mg/dL) Urine Leukocyte Esterase Small (NEG) Urine RBC 3-5 /HPF (0-2) Urine WBC 11-20 /HPF (0-4) Urine Transitional Epithelial Cells Occ /LPF Urine Amorphous Sediment Present /HPF Urine Bacteria Few /HPF (0-FEW) Laboratory Tests 11/22/18 08:18 Laboratory Tests 11/22/18 08:18 EKG EKG Normal sinus rhythm at a rate of 115 beats for minute, left axis deviation, normal intervals. Nonspecific ST/T changes are present.[] Radiology/Procedures Radiology/Procedures [PROCEDURE: PORTABLE CHEST 1V PORTABLE CHEST 1V History: Hypoxia. Comparison: September 21, 2018. Findings: Increased elevation of the right hemidiaphragm. Low lung volumes with patchy left basilar opacities. Enlarged cardiac silhouette, unchanged. Prior granulomatous disease. No pleural effusion. Left glenohumeral DJD. Dilated loops of bowel within the imaged upper abdomen. Partially imaged shunt catheter along the right aspect of the chest. Impression: 1. Low lung volumes with patchy left basilar opacity, most likely atelectasis. PA and lateral view of the chest can better assess if clinically indicated. 2. Dilated loops of bowel within the imaged upper abdomen. Dedicated imaging can further assess if indicated. 3. Increased elevation of the right hemidiaphragm. ] PROCEDURE: CT ABD PELV W/ IV CONTRST ONLY Examination: CT ABD PELV W/ IV CONTRST ONLY History: Abdominal pain and bloating Comparison/Correlation: 06/01/2018 CT chest abdomen and pelvis without contrast Findings: Axial images of the abdomen and pelvis were obtained following IV contrast. Sagittal and coronal reformatted images were provided. Right costophrenic sulcus atelectasis is present. Minimal left costophrenic sulcus atelectasis is present. Very small pleural effusions noted. Liver, spleen, pancreas, and adrenal glands are normal. Bilateral renal lesions are present likely representing cysts or other benign process. Inferior vena cava filter is present. Fecal impaction involving the distal sigmoid colon and rectum is notable. Distention of the colon with gas is evident. Moderate quantity of stool in the cecum is present. No extraluminal gas. No enlarged abdominal or pelvic lymph nodes. No ascites or pelvic free fluid. Bilateral L4 pars interarticularis fractures are present with slightly less than grade 1 anterolisthesis in relation L5. Significant L4 S5 disc space narrowing is present. Electronic device is noted within the right lower intra-abdominal wall. Impression: Fecal impaction of the distal sigmoid colon and rectum is greater than seen on the prior CT exam of 06/01/2018. Distention of the colon is evident diffusely. No small bowel distention. Right costophrenic sulcus atelectatic consolidation. Very small pleural effusions. Bilateral L4 pars interarticularis fractures with anterolisthesis of L4. Course & Med Decision Making Course & Med Decision Making Pertinent Labs and Imaging studies reviewed. (See chart for details) []11:00 AM: Attempted rectal exam and manual disimpaction, but stool was too high in the rectal vault to be palpable and disimpacted, so an enema will be ordered. I spoke with patients mother about findings, need for developing a bowel regimen, and need for GI f/u, and return precautions. Patient's mother states that he has continued to have regular bowel movements while at home. Based on prior imaging it appears that constipation has been an ongoing issue with the patient. The importance of GI follow-up was stressed. Patient will be given a prescription for Bactrim for his UTI, this was called into the [facility]. Dragon Disclaimer Dragon Disclaimer This electronic medical record was generated, in whole or in part, using a voice recognition dictation system. Departure Departure Impression: Primary Impression: Abdominal pain Additional Impressions: Constipation UTI (urinary tract infection) Disposition: HOME, SELF-CARE Condition: STABLE Referrals: HERMINIO JACOBS (PCP) MICHELLE VALDES MD Patient Instructions: Abdominal Pain (Nonspecific), Constipation, Adult, Urinary Tract Infection Additional Instructions: Use MiraLAX 1 capfull in 8 ounces of water, one to 2 times daily, to help clear constipation. Follow up with gastroenterology for further evaluation and ma mihaela as recommended. Problem Qualifiers INDER PEREIRA MD Nov 22, 2018 08:08
[2018-11-22 08:35] LABS: BASO % 0 % (0-3); EOS % 0 % (0-3); HEMATOCRIT 48.1 % (39.0-53.0); HEMOGLOBIN 16.2 g/dL (13.0-17.5); LYMPH # 1.4 x10^3/uL (1.0-4.8); LYMPH % 10 % (24-48); MEAN CORPUSCULAR HEMOGLOBIN 30 pg (25-35); MEAN CORPUSCULAR HGB CONC 34 g/dL (31-37); MEAN CORPUSCULAR VOLUME 89 fL (79-100); MONO # 1.2 x10^3/uL (0.0-1.1); MONO % 8 % (0-9); NEUT # 11.6 x10^3/uL (1.8-7.7); NEUT % 81 % (31-73); PLATELET COUNT 249 x10^3/uL (140-400); RED BLOOD COUNT 5.43 x10^6/uL (4.30-5.70); RED CELL DISTRIBUTION WIDTH 14.5 % (11.5-14.5); WHITE BLOOD COUNT 14.3 x10^3/uL (4.0-11.0)
[2018-11-22 08:45] LABS: PROTHROMBIN TIME PATIENT 14.6 SEC (11.7-14.0)
--- NOTE | 2018-11-22 08:49 | RAD ---
PORTABLE CHEST 1V History: Hypoxia. Comparison: September 21, 2018. Findings: Increased elevation of the right hemidiaphragm. Low lung volumes with patchy left basilar opacities. Enlarged cardiac silhouette, unchanged. Prior granulomatous disease. No pleural effusion. Left glenohumeral DJD. Dilated loops of bowel within the imaged upper abdomen. Partially imaged shunt catheter along the right aspect of the chest. Impression: 1. Low lung volumes with patchy left basilar opacity, most likely atelectasis. PA and lateral view of the chest can better assess if clinically indicated. 2. Dilated loops of bowel within the imaged upper abdomen. Dedicated imaging can further assess if indicated. 3. Increased elevation of the right hemidiaphragm. Electronically signed by: Chauncey Fernandes DO (11/22/2018 8:47 AM) [id number]
[2018-11-22 09:02] LABS: ALBUMIN 3.5 g/dL (3.4-5.0); ALBUMIN/GLOBULIN RATIO 0.7 (1.0-1.7); TOTAL BILIRUBIN 0.8 mg/dL (0.2-1.0); TOTAL PROTEIN 8.7 g/dL (6.4-8.2)
--- NOTE | 2018-11-22 09:03 | EKG ---
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
[2018-11-22 09:08] LABS: GFR 93.5; POTASSIUM 3.7 mmol/L (3.5-5.1)
[2018-11-22 09:10] LABS: CALCIUM 9.3 mg/dL (8.5-10.1)
[2018-11-22] MEDS ORDERED: CONTRAST GIVEN. MC PRN (09:15)
[2018-11-22] MEDS ORDERED: IOHEXOL 300 MG/ML 100ML VIAL. IV ONE (09:15)
[2018-11-22 10:01] LABS: BILIRUBIN,URINE NEGATIVE (NEG); CLARITY,URINE CLEAR; COLOR,URINE AMBER; NITRITE,URINE NEGATIVE (NEG); PH,URINE 5.5; PROTEIN,URINE 30 mg/dL (NEG-TRACE)
[2018-11-22 10:06] LABS: AMORPHOUS SEDIMENT,UR PRESENT /HPF; BACTERIA,URINE FEW /HPF (0-FEW)
--- NOTE | 2018-11-22 10:20 | RAD ---
Examination: CT ABD PELV W/ IV CONTRST ONLY History: Abdominal pain and bloating Comparison/Correlation: 06/01/2018 CT chest abdomen and pelvis without contrast Findings: Axial images of the abdomen and pelvis were obtained following IV contrast. Sagittal and coronal reformatted images were provided. Right costophrenic sulcus atelectasis is present. Minimal left costophrenic sulcus atelectasis is present. Very small pleural effusions noted. Liver, spleen, pancreas, and adrenal glands are normal. Bilateral renal lesions are present likely representing cysts or other benign process. Inferior vena cava filter is present. Fecal impaction involving the distal sigmoid colon and rectum is notable. Distention of the colon with gas is evident. Moderate quantity of stool in the cecum is present. No extraluminal gas. No enlarged abdominal or pelvic lymph nodes. No ascites or pelvic free fluid. Bilateral L4 pars interarticularis fractures are present with slightly less than grade 1 anterolisthesis in relation L5. Significant L4 S5 disc space narrowing is present. Electronic device is noted within the right lower intra-abdominal wall. Impression: Fecal impaction of the distal sigmoid colon and rectum is greater than seen on the prior CT exam of 06/01/2018. Distention of the colon is evident diffusely. No small bowel distention. Right costophrenic sulcus atelectatic consolidation. Very small pleural effusions. Bilateral L4 pars interarticularis fractures with anterolisthesis of L4. PQRS Compliance Statement: One or more of the following individualized dose reduction techniques were utilized for this examination: 1. Automated exposure control 2. Adjustment of the mA and/or kV according to patient size 3. Use of iterative reconstruction technique Electronically signed by: Kit Dewey MD (11/22/2018 10:16 AM) [facility]
[2018-11-22] MEDS ORDERED: SODIUM PHOSPHATES 19/7GM 133 ML ENEMA. ONE (10:53)
[2018-11-22] MEDS ORDERED: SODIUM PHOSPHATES 19/7GM 133 ML ENEMA. PR ONE (11:15)
[2018-11-22 11:48] VITALS: BP 94/51
== END 2018-11-22 12:02 | disposition home or self-care (01) ==
LOC: ER 07:40
DX: N39.0 Urinary tract infection, site not specified (principal); K59.00 Constipation, unspecified; K21.9 Gastro-esophageal reflux disease without esophagitis; E78.00 Pure hypercholesterolemia, unspecified; I10 Essential (primary) hypertension; Z86.73 Personal history of transient ischemic attack (TIA), and cerebral infarction without residual deficits
CPT/HCPCS: 36415; 71045; 74177; 80053; 81001; 83605; 83690; 83880; 84484; 85025; 85610; 87040; 87086; 87205; 93005; J7030; Q9967; 99285-25

== ENCOUNTER 2019-08-27 16:19 | Emergency (ER) | payer OTHER ==
[~2019-08-27] VITALS: Ht 182.9 cm; Wt 79.5 kg
[~2019-08-27 16:19] MED LIST changes: +AMOX250S20 PO; +GLYC2TAB4 PO; +POLY17PO28 GT; +PSYL1PAC3 PO; +[UNRECOGNIZED DRUG - REMARK]
[2019-08-27 16:50] VITALS: BP 116/76
[2019-08-27 17:23] LABS: BASO # 0.1 x10^3/uL (0.0-0.2); BASO % 1 % (0-3); EOS # 0.1 x10^3/uL (0.0-0.7); EOS % 2 % (0-3); HEMATOCRIT 47.4 % (39.0-53.0); HEMOGLOBIN 16.4 g/dL (13.0-17.5); LYMPH # 1.5 x10^3/uL (1.0-4.8); LYMPH % 21 % (24-48); MEAN CORPUSCULAR HEMOGLOBIN 31 pg (25-35); MEAN CORPUSCULAR HGB CONC 35 g/dL (31-37); MEAN CORPUSCULAR VOLUME 88 fL (79-100); MONO # 0.5 x10^3/uL (0.0-1.1); MONO % 7 % (0-9); NEUT # 5.1 x10^3/uL (1.8-7.7); NEUT % 70 % (31-73); PLATELET COUNT 225 x10^3/uL (140-400); RED BLOOD COUNT 5.37 x10^6/uL (4.30-5.70); RED CELL DISTRIBUTION WIDTH 13.7 % (11.5-14.5); WHITE BLOOD COUNT 7.3 x10^3/uL (4.0-11.0)
[2019-08-27 17:34] LABS: CALCIUM 8.9 mg/dL (8.5-10.1); CREATININE 0.9 mg/dL (0.7-1.3); GFR 105.2; POTASSIUM 4.4 mmol/L (3.5-5.1)
[2019-08-27 17:40] LABS: ALBUMIN 3.8 g/dL (3.4-5.0); MAGNESIUM 2.2 mg/dL (1.8-2.4); TOTAL BILIRUBIN 0.6 mg/dL (0.2-1.0); TOTAL PROTEIN 7.6 g/dL (6.4-8.2)
--- NOTE | 2019-08-27 18:00 | RAD ---
Exam: CT head INDICATION: Headache, right-sided chest TECHNIQUE: Sequential axial images through the head were obtained without the administration of IV contrast. Comparisons: 06/09/2019 FINDINGS: Redemonstration of a single limb intracranial shunt catheter which which is in similar position when compared to the prior exam. No focal parenchymal lesion or hemorrhage is identified. There is no midline shift or sulcal effacement. No acute vascular territory infarction is identified. Ewing-white distinction is preserved. The ventricular system is decompressed, unchanged from prior study. The basal cisterns are well maintained. The visualized portions of the paranasal sinuses and mastoid air cells are well-pneumatized. No acute fractures. IMPRESSION: Similar appearance of the ventriculostomy catheter and ventricular system. No acute process identified. Exposure: One or more of the following in the visualized dose reduction techniques were utilized for this examination: 1. Automated exposure control 2. Adjustment of the MA and/or KV according to patient size Use of iterative of reconstructive technique Electronically signed by: Lorenzo Tom MD (08/27/2019 5:57 PM) [id number]
--- NOTE | 2019-08-27 18:48 | RAD ---
AP portable chest radiograph 08/27/2019 Clinical History: Pneumonia. An AP erect portable digital radiograph of the chest was obtained. Comparison study is dated 06/09/2019. [employer]CTION SUPER[employer]OR shunt tubing overlies the right chest. The cardiac silhouette is mildly enlarged. A calcified left hilar lymph node is unchanged. The thoracic aorta is mildly tortuous. The areas of atelectasis and or infiltrate involving both lower lobes seen on the previous examination has resolved. No acute pulmonary infiltrate is seen. No pneumothorax or pleural effusion is noted. The osseous structures are unchanged. IMPRESSION: No acute abnormality is seen. Electronically signed by: Steven Ortiz MD (08/27/2019 6:45 PM) [id number]
--- NOTE | 2019-08-27 18:54 | PHYS DOC ---
Past Medical History Past Medical History: Constipation, CVA, GERD, High Cholesterol, Hypertension, Seizure, Other Additional Past Medical Histor: cerebvasc disease, resp failure, hydrocephalus, dysphagia,epilepsy Past Surgical History: Other Additional Past Surgical Histo: G-tube, neuro stimulator (BACLOFEN PUMP) Smoking Status: Never Smoker Alcohol Use: None Drug Use: None General Adult EDM: Chief Complaint: HEADACHE HPI: HPI: Patient is a 59 year old AA male who is nonverbal, accompanied by his mother, who brought the patient to the emergency department with concerns of patient being restless for the last 2 days and pointing at his head as if he was in pain this afternoon around 1300. Mother states that the patient has had a previous stroke and has a shunt in the right side of his head. She denies any fever, nausea, vomiting, diarrhea, rash, hematuria, cough, increased work of breathing, or diaphoresis. She denies any recent ill contacts. Mother reports that the patient has recently suffered a long bout of pneumonia. She states that he had a CT chest on Wednesday to evaluate his lungs but has not received the results report from that. Limited HPI due to patient being nonverbal. Review of Systems: Review of Systems: See HPI Heart Score: Risk Factors: Risk Factors: DM, Current or recent (<one month) smoker, HTN, HLP, family history of CAD, obesity. Risk Scores: Score 0 - 3: 2.5% MACE over next 6 weeks - Discharge Home Score 4 - 6: 20.3% MACE over next 6 weeks - Admit for Clinical Observation Score 7 - 10: 72.7% MACE over next 6 weeks - Early Invasive Strategies Allergies: Allergies: Allergies Coded Allergies Type Severity Reaction Last Updated Verified No Known Drug Allergies 09/30/15 No Physical Exam: PE: Constitutional: Well developed, well nourished, no acute distress, non-toxic appearance, Nonverbal [] HENT: Normocephalic, atraumatic, bilateral external ears normal, bilateral TMs normal, oropharynx moist, no oral exudates, nose normal. [] Eyes: PERRLA, EOMI, conjunctiva normal, no discharge, no nystagmus. [] Neck: Normal range of motion, no stridor. [] Cardiovascular:Heart rate regular rhythm, no murmur [] Lungs & Thorax: Bilateral breath sounds clear to auscultation, Respirations even and unlabored, no retractions, no respiratory distress[] Abdomen: soft, no tenderness, no masses, no pulsatile masses. [] Skin: Warm, dry, no erythema, no rash. [] Extremities: No cyanosis, ROM intact, no edema. [] Neurologic: Alert and oriented normal for patient, following commands, no focal deficits noted. [] Psychologic: Affect normal, judgement normal, mood normal. [] Current Patient Data: Labs: Laboratory Tests Test 08/27/19 17:00 White Blood Count 7.3 x10^3/uL (4.0-11.0) Red Blood Count 5.37 x10^6/uL (4.30-5.70) Hemoglobin 16.4 g/dL (13.0-17.5) Hematocrit 47.4 % (39.0-53.0) Mean Corpuscular Volume 88 fL (79-100) Mean Corpuscular Hemoglobin 31 pg (25-35) Mean Corpuscular Hemoglobin Concent 35 g/dL (31-37) Red Cell Distribution Width 13.7 % (11.5-14.5) Platelet Count 225 x10^3/uL (140-400) Neutrophils (%) (Auto) 70 % (31-73) Lymphocytes (%) (Auto) 21 % (24-48) L Monocytes (%) (Auto) 7 % (0-9) Eosinophils (%) (Auto) 2 % (0-3) Basophils (%) (Auto) 1 % (0-3) Neutrophils # (Auto) 5.1 x10^3/uL (1.8-7.7) Lymphocytes # (Auto) 1.5 x10^3/uL (1.0-4.8) Monocytes # (Auto) 0.5 x10^3/uL (0.0-1.1) Eosinophils # (Auto) 0.1 x10^3/uL (0.0-0.7) Basophils # (Auto) 0.1 x10^3/uL (0.0-0.2) Sodium Level 137 mmol/L (136-145) Potassium Level 4.4 mmol/L (3.5-5.1) Chloride Level 101 mmol/L (98-107) Carbon Dioxide Level 30 mmol/L (21-32) Anion Gap 6 (6-14) Blood Urea Nitrogen 18 mg/dL (8-26) Creatinine 0.9 mg/dL (0.7-1.3) Estimated GFR (Cockcroft-Gault) 105.2 BUN/Creatinine Ratio 20 (6-20) Glucose Level 97 mg/dL (70-99) Lactic Acid Level 1.1 mmol/L (0.4-2.0) Calcium Level 8.9 mg/dL (8.5-10.1) Magnesium Level 2.2 mg/dL (1.8-2.4) Total Bilirubin 0.6 mg/dL (0.2-1.0) Aspartate Amino Transferase (AST) 24 U/L (15-37) Alanine Aminotransferase (ALT) 27 U/L (16-63) Alkaline Phosphatase 133 U/L (46-116) H Total Protein 7.6 g/dL (6.4-8.2) Albumin 3.8 g/dL (3.4-5.0) Albumin/Globulin Ratio 1.0 (1.0-1.7) Lipase 97 U/L (73-393) Laboratory Tests 08/27/19 17:00 Laboratory Tests 08/27/19 17:00 Vital Signs: Vital Signs Date Time Temp Pulse Resp B/P (MAP) Pulse Ox O2 Delivery O2 Flow Rate FiO2 08/27/19 16:50 98.5 83 19 116/76 (89) 96 Nasal Cannula 2.0 98.5 EKG: EKG: [] Radiology/Procedures: Radiology/Procedures: PROCEDURE: CHEST AP ONLY AP portable chest radiograph 08/27/2019 Clinical History: Pneumonia. An AP erect portable digital radiograph of the chest was obtained. Comparison study is dated 06/09/2019. PLATER HOT DIP shunt tubing overlies the right chest. The cardiac silhouette is mildly enlarged. A calcified left hilar lymph node is unchanged. The thoracic aorta is mildly tortuous. The areas of atelectasis and or infiltrate involving both lower lobes seen on the previous examination has resolved. No acute pulmonary infiltrate is seen. No pneumothorax or pleural effusion is noted. The osseous structures are unchanged. IMPRESSION: No acute abnormality is seen.[] PROCEDURE: CT HEAD WO CONTRAST Exam: CT head INDICATION: Headache, right-sided chest TECHNIQUE: Sequential axial images through the head were obtained without the administration of IV contrast. Comparisons: 06/09/2019 FINDINGS: Redemonstration of a single limb intracranial shunt catheter which which is in similar position when compared to the prior exam. No focal parenchymal lesion or hemorrhage is identified. There is no midline shift or sulcal effacement. No acute vascular territory infarction is identified. Ewing-white distinction is preserved. The ventricular system is decompressed, unchanged from prior study. The basal cisterns are well maintained. The visualized portions of the paranasal sinuses and mastoid air cells are well-pneumatized. No acute fractures. IMPRESSION: Similar appearance of the ventriculostomy catheter and ventricular system. No acute process identified. Course & Med Decision Making: Course & Med Decision Making Pertinent Labs and Imaging studies reviewed. (See chart for details) Patient is a 59-year-old male brought to the emergency department by his mother with concerns of worsening pneumonia or something being wrong with the patient's shunt. Work-up included a CT head without contrast, CBC, CMP, lactic acid, magnesium, lipase, UA, and chest x-ray. Labs were unremarkable. Patient's chest x-ray compared to the previous chest x-ray of which the pneumonia was present showed that the pneumonia was no longer present. Patient CT head revealed no acute findings. Patient's vitals were stable throughout the emergency department visit. Patient initial had a brief episode of hypoxia right after being transferred to the ER cart. However this quickly resolved and the patient main tained a O2 sat greater than 90 throughout the rest of his visit. I encouraged the mother to follow-up with her the patient's primary care doctor if symptoms persist, return to the ER symptoms worsen. I reassured her that the chest x-ray was improved and that there were no acute findings in the CT scan of the patient's head. Patient's mother verbalized an understanding of home care, medications, follow- up, and return to ED instructions and was in agreement with the plan of care. Dragon Disclaimer: Dragon Disclaimer: This electronic medical record was generated, in whole or in part, using a voice recognition dictation system. Departure Departure Impression: Primary Impression: Headache Qualified Codes: R51 - Headache Additional Impression: Restlessness Disposition: 01 HOME, SELF-CARE Condition: STABLE Referrals: HERMINIO JACOBS (PCP) Patient Instructions: General Headache Without Cause, [id number] Additional Instructions: Follow up with your primary care doctor if symptoms persist. Return to the ER if symptoms worsen. Justicifation of Admission Dx: Justifications for Admission: Justification of Admission Dx: TYRELL Osborne VENDOR MANAGEMENT SPECIALIST Aug 27, 2019 18:54
[2019-08-27 19:08] LABS: BILIRUBIN,URINE NEGATIVE (NEG); CLARITY,URINE CLEAR; COLOR,URINE YELLOW; NITRITE,URINE NEGATIVE (NEG); PROTEIN,URINE NEGATIVE (NEG-TRACE)
[2019-08-27 19:13] LABS: BACTERIA,URINE 0 /HPF (0-FEW); HYALINE CASTS, URINE OCCASIONAL /HPF; RBC,URINE OCC /HPF (0-2); SQUAMOUS EPITHELIAL CELL,UR OCC /LPF; WBC,URINE OCC /HPF (0-4)
== END 2019-08-27 19:55 | disposition home or self-care (01) ==
LOC: ER 16:19
DX: R51 Headache (principal); R45.1 Restlessness and agitation; K21.9 Gastro-esophageal reflux disease without esophagitis; E78.00 Pure hypercholesterolemia, unspecified; I10 Essential (primary) hypertension; Z86.73 Personal history of transient ischemic attack (TIA), and cerebral infarction without residual deficits
CPT/HCPCS: 36415; 70450; 71045; 80053; 81001; 83605; 83690; 83735; 85025; 99285-25

== ENCOUNTER 2019-09-06 11:52 | Emergency (ER) | payer OTHER ==
[~2019-09-06] VITALS: Ht 182.9 cm; Wt 65.9 kg
--- NOTE | 2019-09-06 13:00 | PHYS DOC ---
Past Medical History Past Medical History: Constipation, CVA, GERD, High Cholesterol, Hypertension, Seizure, Other Additional Past Medical Histor: cerebvasc disease, resp failure, hydrocephalus, dysphagia,epilepsy (DENIS NI APRN) Past Surgical History: Other Additional Past Surgical Histo: G-tube, neuro stimulator (BACLOFEN PUMP) (DENIS NI APRN) Smoking Status: Never Smoker Alcohol Use: None Drug Use: None (DENIS NI APRN) General Adult EDM: Chief Complaint: LOWER EXT PAIN HPI: HPI: Patient is a 59 year old male who presents with and with a family member today after he was seen by his home health nurse and they reported that his right foot is reddened and swollen. Patient is wheelchair-bound. He has had a history of a stroke, dysphasia with G-tube placement, neural stimulator, hydrocephalus, dysphasia, epilepsy, GERD, high cholesterol, hypertension. Family member states the patient has been complaining of the right leg pain and calf pain. She states he is also complained of some low back pain. Patient is sitting in the chair sleeping upon arrival. Right foot is reddened up into the ankle and is 2+ nonpitting edema. Patient did not flinch as I was palpating the calf and or the foot. Patient does not seem to have any control over his lower extremities. He is nonambulatory. Transportation Planning Engineer reports incontinence which is normal for him. Caregiver denies him having fever, nausea, vomiting, diarrhea, wheezing, shortness of breath, cough, confusion, disorientation. (DENIS NI APRN) Review of Systems: Review of Systems: Integument: Denies rash. Right lower leg swelling and redness. [] (DENIS NI APRN) Heart Score: Risk Factors: Risk Factors: DM, Current or recent (<one month) smoker, HTN, HLP, family history of CAD, obesity. Risk Scores: Score 0 - 3: 2.5% MACE over next 6 weeks - Discharge Home Score 4 - 6: 20.3% MACE over next 6 weeks - Admit for Clinical Observation Score 7 - 10: 72.7% MACE over next 6 weeks - Early Invasive Strategies (DENIS NI APRN) Allergies: Allergies: Allergies Coded Allergies Type Severity Reaction Last Updated Verified No Known Drug Allergies 09/30/15 No (DENIS NI APRN) Physical Exam: PE: Constitutional: Well developed, well nourished, no acute distress, non-toxic appearance. [] HENT: Normocephalic, atraumatic, bilateral external ears normal, oropharynx moist, no oral exudates, nose normal. [] Eyes: PERRLA, EOMI, conjunctiva normal, no discharge. [] Neck: Normal range of motion, no tenderness, supple, no stridor. [] Cardiovascular:Heart rate regular rhythm, no murmur [] Lungs & Thorax: Bilateral breath sounds clear to auscultation [] Abdomen: Bowel sounds normal, soft, no tenderness, no masses, no pulsatile masses. [] Skin: Warm, dry, right lower leg erythema, no rash. [] Back: No tenderness, no CVA tenderness. [] Extremities: No tenderness, no cyanosis, no clubbing, ROM intact, no edema. [] Neurologic: Alert and oriented X 3, normal motor function, normal sensory function, no focal deficits noted. [] Psychologic: Affect normal, judgement normal, mood normal. [] (DENIS NI APRN) EKG: EKG: [] (DENIS NI APRN) Radiology/Procedures: Radiology/Procedures: [] Impression: [facility] [address] [place], [place] [id number] IMAGING REPORT Signed PATIENT: SHELLEY POLANCO ACCOUNT: [id number] : 1960 LOCATION: ER AGE: 59 SEX: M EXAM STATUS: REG ER ORD. PHYSICIAN: DENIS NI APRN REASON: swelling PROCEDURE: VENOUS LOWER EXTREMITY RIGHT Right lower extremity venous doppler ultrasound History: Right leg swelling Comparison: None Findings: Multiple grayscale, color, and duplex spectral analysis sonographic images were acquired of the right lower extremity veins to evaluate for the presence of DVT. There is normal phasicity. Normal compression, color-flow, and augmentation is demonstrated from the right common femoral to the popliteal veins. There is normal color flow of the proximal greater saphenous and profunda femoris veins. There is normal color flow of segments of the calf veins. Impression: 1. There is no evidence of deep venous thrombosis from the right common femoral to the popliteal veins. Electronically signed by: Mena Mota MD (09/06/2019 1:24 PM) [id number] DICTATED and SIGNED BY: MENA MOTA MD DATE: 09/06/19 1324 (DENIS NI APRN) Course & Med Decision Making: Course & Med Decision Making Pertinent Labs and Imaging studies reviewed. (See chart for details) A light pedal pulses can be felt in the right lower extremity. Cap refill is less than 3 seconds. See HPI. Mother reports the patient is acting normal for himself, Patient is afebrile and hemodynamically stable. Patient will be sent home on Keflex and Bactrim. Patient does have home health that comes in and checks on him. They can return to the ER in 48 hours for a wound recheck or go to his primary care provider. I have went over patient vitals signs, exam findings and lab findings and care plan with Dr Salgado. [] (DENIS NI APRN) Dragon Disclaimer: Dragon Disclaimer: This electronic medical record was generated, in whole or in part, using a voice recognition dictation system. (DENIS NI APRN) Departure Departure Impression: Primary Impression: Cellulitis Qualified Codes: L03.115 - Cellulitis of right lower limb Disposition: HOME, SELF-CARE Condition: STABLE Referrals: HERMINIO JACOBS (PCP) Patient Instructions: Cellulitis Additional Instructions: Follow up in 48 hours for a recheck either here in the ED or with your primary care physician. If the patient begins to run a fever or cellulitis is worsening before the 48 hours, have the patient seen sooner. Scripts Cephalexin (KEFLEX) 500 Mg Capsule 1 CAP PO TID for 10 Days, #30 CAP 0 Refills Prov: DENIS NI APRN 09/06/19 Sulfamethoxazole/Trimethoprim (BACTRIM DS TABLET) 1 Each Tablet 1 TAB PO BID for 10 Days, #20 TAB 0 Refills Prov: DENIS NI APRN 09/06/19 Justicifation of Admission Dx: Justifications for Admission: Justification of Admission Dx: N/A (DENIS NI APRN) Attending Signature Attending Signature I have participated in the care of this patient and I have reviewed and agree with all pertinent clinical information above including history, exam, and recommendations. (RHONDA SALGADO DO) DENIS NI APRN Sep 06, 2019 13:00 RHONDA SALGADO DO Sep 06, 2019 16:22
--- NOTE | 2019-09-06 13:27 | RAD ---
Right lower extremity venous doppler ultrasound History: Right leg swelling Comparison: None Findings: Multiple grayscale, color, and duplex spectral analysis sonographic images were acquired of the right lower extremity veins to evaluate for the presence of DVT. There is normal phasicity. Normal compression, color-flow, and augmentation is demonstrated from the right common femoral to the popliteal veins. There is normal color flow of the proximal greater saphenous and profunda femoris veins. There is normal color flow of segments of the calf veins. Impression: 1. There is no evidence of deep venous thrombosis from the right common femoral to the popliteal veins. Electronically signed by: Asad Hughes MD (09/06/2019 1:24 PM) [id number]
[2019-09-06 14:37] LABS: BASO % 1 % (0-3); EOS # 0.1 x10^3/uL (0.0-0.7); EOS % 3 % (0-3); HEMATOCRIT 42.7 % (39.0-53.0); HEMOGLOBIN 14.5 g/dL (13.0-17.5); LYMPH # 1.8 x10^3/uL (1.0-4.8); LYMPH % 48 % (24-48); MEAN CORPUSCULAR HEMOGLOBIN 30 pg (25-35); MEAN CORPUSCULAR HGB CONC 34 g/dL (31-37); MEAN CORPUSCULAR VOLUME 89 fL (79-100); MONO # 0.5 x10^3/uL (0.0-1.1); MONO % 14 % (0-9); NEUT # 1.4 x10^3/uL (1.8-7.7); NEUT % 36 % (31-73); PLATELET COUNT 232 x10^3/uL (140-400); RED BLOOD COUNT 4.81 x10^6/uL (4.30-5.70); WHITE BLOOD COUNT 3.8 x10^3/uL (4.0-11.0)
[2019-09-06 14:41] LABS: CALCIUM 9.1 mg/dL (8.5-10.1); CREATININE 1.1 mg/dL (0.7-1.3); GFR 83.5; POTASSIUM 4.8 mmol/L (3.5-5.1)
[2019-09-06 14:56] LABS: ALBUMIN 3.3 g/dL (3.4-5.0); ALBUMIN/GLOBULIN RATIO 0.8 (1.0-1.7); C-REACTIVE PROTEIN 7.3 mg/L (0-3.3); TOTAL BILIRUBIN 0.5 mg/dL (0.2-1.0); TOTAL PROTEIN 7.3 g/dL (6.4-8.2)
[2019-09-06] MEDS ORDERED: SULF1TAB24 PO (15:41)
[2019-09-06] MEDS ORDERED: CEPH-264 PO (15:41)
[2019-09-06 16:00] VITALS: BP 107/77
== END 2019-09-06 16:25 | disposition home or self-care (01) ==
LOC: ER 11:52
DX: L03.115 Cellulitis of right lower limb (principal); K21.9 Gastro-esophageal reflux disease without esophagitis; E78.00 Pure hypercholesterolemia, unspecified; I10 Essential (primary) hypertension; G40.909 Epilepsy, unspecified, not intractable, without status epilepticus; Z86.73 Personal history of transient ischemic attack (TIA), and cerebral infarction without residual deficits
CPT/HCPCS: 36415; 80053; 83605; 85025; 86140; 87040; 93971; 99285-25

== ENCOUNTER 2019-10-07 13:49 | Emergency (ER) | payer OTHER ==
[~2019-10-07] VITALS: Ht 182.9 cm; Wt 81.8 kg
[~2019-10-07 13:49] MED LIST changes: +CEPH-264 PO; +SULF1TAB24 PO
--- NOTE | 2019-10-07 14:57 | PHYS DOC ---
Past Medical History Past Medical History: Constipation, CVA, GERD, High Cholesterol, Hypertension, Seizure, Other Additional Past Medical Histor: cerebvasc disease, resp failure, hydrocephalus, dysphagia,epilepsy Past Surgical History: Other Additional Past Surgical Histo: G-tube, neuro stimulator (BACLOFEN PUMP) Smoking Status: Never Smoker Alcohol Use: None Drug Use: None General Adult EDM: Chief Complaint: ANXIETY/PANIC ATTACK HPI: HPI: Patient is a 59 year old male who presents via EMS for agitation. Patient is accompanied by sister who is primary historian. He has had a history of a stroke, dysphasia with G-tube placement, neural stimulator, hydrocephalus, dysphasia, epilepsy, GERD, high cholesterol, hypertension. Per sister, patient was at home and receiving care from their mother when their mother noticed patient became increasingly agitated past baseline. Mother was concerned about patient's right knee as being the main source of agitation. He is nonambulatory and bedbound given his comorbidities. He has decreased motor deficits and paralysis of right lower extremity from prior stroke. Caregiver denies him having fever, nausea, vomiting, diarrhea, wheezing, shortness of breath, cough, confusion, disorientation. Patient denies being in any pain on arrival and has no complaints Review of Systems: Review of Systems: Constitutional: Denies fever or chills. [] Eyes: Denies change in visual acuity. [] HENT: Denies nasal congestion or sore throat. [] Respiratory: Denies cough or shortness of breath. [] Cardiovascular: Denies chest pain or edema. [] GI: Denies abdominal pain, nausea, vomiting, bloody stools or diarrhea. [] : Denies dysuria. [] Musculoskeletal: Denies back pain or joint pain. [] Integument: Denies rash. [] Neurologic: Denies headache, focal weakness or sensory changes. [] Endocrine: Denies polyuria or polydipsia. [] Lymphatic: Denies swollen glands. [] Psychiatric: Denies depression or anxiety. [] Heart Score: HEART Score for Chest Pain: HEART Score for Chest Pain Response (Comments) Value History Slighlty/Non-Suspicious 0 ECG Normal 0 Age >45 - < 65 1 Total 1 Risk Factors: Risk Factors: DM, Current or recent (<one month) smoker, HTN, HLP, family history of CAD, obesity. Risk Scores: Score 0 - 3: 2.5% MACE over next 6 weeks - Discharge Home Score 4 - 6: 20.3% MACE over next 6 weeks - Admit for Clinical Observation Score 7 - 10: 72.7% MACE over next 6 weeks - Early Invasive Strategies Allergies: Allergies: Allergies Coded Allergies Type Severity Reaction Last Updated Verified No Known Drug Allergies 09/30/15 No Physical Exam: PE: Constitutional: No acute distress, nontoxic, thin, bedbound from numerous comorbid conditions HENT: Normocephalic, atraumatic, bilateral external ears normal, oropharynx moist, no oral exudates, nose normal. [] Eyes: PERRLA, EOMI, conjunctiva normal, no discharge. [] Neck: Normal range of motion, no tenderness, supple, no stridor. Prior well- healed trach scar [] Cardiovascular:Heart rate regular rhythm, no murmur [] Lungs & Thorax: Bilateral breath sounds clear to auscultation [] Abdomen: Bowel sounds normal, soft, no tenderness, no masses, no pulsatile masses. [] Skin: Warm, dry, no erythema, no rash. [] Back: No tenderness, no CVA tenderness. [] Extremities: No tenderness, no cyanosis, no clubbing, no edema. Palpable bony abnormality of medial portion of right knee. Muscle wasting in all 4 extremities due to patient being bedbound Neurologic: Alert, pre-existing right lower extremity motor and sensory deficits from prior stroke that are unchanged per patient and sister Psychologic: Flat affect. Normal mood Current Patient Data: Labs: Laboratory Tests Test 10/07/19 13:57 Glucose (Fingerstick) 89 mg/dL (70-99) Vital Signs: Vital Signs Date Time Temp Pulse Resp B/P (MAP) Pulse Ox O2 Delivery O2 Flow Rate FiO2 10/07/19 18:38 98.2 54 15 97/71 (80) 98 Room Air 98.2 10/07/19 18:23 98.2 54 16 95/69 (78) 98 Room Air 98.2 10/07/19 18:08 98.2 52 16 95/71 (79) 97 Room Air 98.2 10/07/19 17:53 98.2 54 18 97/72 (80) 97 Room Air 98.2 10/07/19 17:38 98.2 50 15 96/70 (79) 97 Room Air 98.2 10/07/19 17:23 98.2 54 15 99/72 (81) 99 Room Air 98.2 10/07/19 17:08 98.2 54 14 101/74 (83) 98 Room Air 98.2 10/07/19 16:53 98.2 54 16 104/74 (84) 98 Room Air 98.2 10/07/19 16:38 98.2 58 17 101/70 (80) 98 Room Air 98.2 10/07/19 16:23 98.2 58 14 105/75 (85) 97 Room Air 98.2 10/07/19 16:08 98.2 56 14 94/68 (77) 97 Room Air 98.2 10/07/19 15:53 98.2 54 16 94/62 (73) 98 Room Air 98.2 10/07/19 15:38 98.2 78 19 94/61 (72) 98 Room Air 98.2 10/07/19 15:23 98.2 50 18 91/65 (74) 98 Room Air 98.2 10/07/19 15:08 98.2 52 20 91/66 (74) 97 Room Air 98.2 10/07/19 14:53 98.2 52 16 91/64 (73) 97 Room Air 98.2 10/07/19 14:38 98.2 56 16 87/68 (74) 97 98.2 10/07/19 14:23 98.2 55 16 93/67 (76) 98 Room Air 98.2 10/07/19 14:08 98.2 55 91/67 (75) 98 Room Air 98.2 10/07/19 13:49 98.2 57 16 87/63 (71) 98 Room Air 98.2 EKG: EKG: EKG obtained and interpreted by myself at 1725 hrs., sinus bradycardia at 49 bpm, prolonged FL 206, prolonged QTc 447, left axis deviation, no acute ischemic findings, no STEMI Radiology/Procedures: Radiology/Procedures: PROCEDURE: CHEST AP ONLY Single AP view of the chest. Comparison: 08/27/2019. Indication: Altered mental status Findings: Large granuloma in the left hilum is reidentified. There are severe degenerative change of the left shoulder which is stable. The heart is enlarged but stable. Ventricular peritoneal shunt tubing is reidentified.. There is no pneumothorax or effusion. No air space or interstitial disease. Impression: 1. No acute cardiopulmonary process. Electronically signed by: Marcelino Bradley MD (10/07/2019 3:22 PM) [id number] DICTATED and SIGNED BY: MARCELINO BRADLEY MD DATE: 10/07/19 1522 PROCEDURE: KNEE RIGHT 4V AP, oblique, sunrise, and lateral views of the right knee were obtained. Indication: Unable to move knee. Comparison: none. Findings: No fracture, dislocation, significant degenerative changes. 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 Electronically signed by: Marcelino Bradley MD (10/07/2019 3:34 PM) [id number] Course & Med Decision Making: Course & Med Decision Making Patient seen by myself on ED arrival, no acute distress, nontoxic-appearing Vital signs are reviewed, HPI limited due to patient condition so sister was primary historian, comprehensive physical exam performed Pertinent Labs and Imaging studies ordered and reviewed with patient and sister Discussed no findings of any emergent condition for patient's reported agitation earlier in the day. Patient observed in ED for several hours without any recurrence of agitation Discussed findings of right knee and next steps needed. Advise close PCP follow-up within next 2 to 7 days worth further consideration for orthopedic versus other specialist referral Strict return precautions discussed with good understanding demonstrated by sister All questions and concerns addressed prior to ED discharge Costa Disclaimer: Costa Disclaimer: This electronic medical record was generated, in whole or in part, using a voice recognition dictation system. 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
--- NOTE | 2019-10-07 15:25 | RAD ---
Single AP view of the chest. Comparison: 08/27/2019. Indication: Altered mental status Findings: Large granuloma in the left hilum is reidentified. There are severe degenerative change of the left shoulder which is stable. The heart is enlarged but stable. Ventricular peritoneal shunt tubing is reidentified.. There is no pneumothorax or effusion. No air space or interstitial disease. Impression: 1. No acute cardiopulmonary process. Electronically signed by: Marcelino Warren MD (10/07/2019 3:22 PM) [id number]
--- NOTE | 2019-10-07 15:38 | RAD ---
AP, oblique, sunrise, and lateral views of the right knee were obtained. Indication: Unable to move knee. Comparison: none. Findings: No fracture, dislocation, significant degenerative changes. 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 Electronically signed by: Marcelino Warren MD (10/07/2019 3:34 PM) [id number]
[2019-10-07 17:29] LABS: BILIRUBIN,URINE NEGATIVE (NEG); CLARITY,URINE CLEAR; COLOR,URINE YELLOW; NITRITE,URINE NEGATIVE (NEG); PROTEIN,URINE NEGATIVE (NEG-TRACE)
[2019-10-07 17:42] LABS: BACTERIA,URINE 0 /HPF (0-FEW); RBC,URINE 0 /HPF (0-2); WBC,URINE 0 /HPF (0-4)
[2019-10-07 21:40] VITALS: BP 104/72
--- NOTE | 2019-10-10 03:18 | EKG ---
[facility] [address] [place] [address] Test Date: 2019-10-07 Test Time: 17:21:40 Pat Name: SHELLEY POLANCO Department: Room: Gender: M Swatch Paster: : 1960 Requested By: KONSTANTIN CRANE Order Number: [id number] Reading MD: Measurements Intervals [place] Rate: 49 P: 45 OH: 206 QRS: -48 QRSD: 96 T: 85 QT: 492 QTc: 447 Interpretive Statements SINUS BRADYCARDIA ABNORMAL LEFT AXIS DEVIATION R-S TRANSITION ZONE IN V LEADS DISPLACED TO THE LEFT LEFT ANTERIOR FASCICULAR BLOCK ABNORMAL ECG RI6.02 No previous ECG available for comparison
== END 2019-10-07 21:44 | disposition home or self-care (01) ==
LOC: ER 13:49
DX: M25.561 Pain in right knee (principal); R45.1 Restlessness and agitation; R00.1 Bradycardia, unspecified; R41.82 Altered mental status, unspecified; K21.9 Gastro-esophageal reflux disease without esophagitis; E78.00 Pure hypercholesterolemia, unspecified; I10 Essential (primary) hypertension; Z86.73 Personal history of transient ischemic attack (TIA), and cerebral infarction without residual deficits; G40.909 Epilepsy, unspecified, not intractable, without status epilepticus
CPT/HCPCS: 71045; 73564; 81001; 82962; 93005; 99285-25

== ENCOUNTER 2019-10-15 08:00 | Inpatient (IN) | payer OTHER ==
[~2019-10-15] VITALS: Ht 177.8 cm; Wt 87.5 kg
[2019-10-15] MEDS ORDERED: IV NORMAL SALINE 1000ML BAG 1,000 ML IV ONE (08:15)
[2019-10-15 08:26] LABS: BASO % 1 % (0-3); BILIRUBIN,URINE NEGATIVE (NEG); CLARITY,URINE CLEAR; COLOR,URINE YELLOW; EOS # 0.1 x10^3/uL (0.0-0.7); EOS % 1 % (0-3); HEMATOCRIT 42.8 % (39.0-53.0); HEMOGLOBIN 14.2 g/dL (13.0-17.5); LYMPH # 2.2 x10^3/uL (1.0-4.8); LYMPH % 41 % (24-48); MEAN CORPUSCULAR HEMOGLOBIN 30 pg (25-35); MEAN CORPUSCULAR HGB CONC 33 g/dL (31-37); MEAN CORPUSCULAR VOLUME 90 fL (79-100); MONO # 0.6 x10^3/uL (0.0-1.1); MONO % 11 % (0-9); NEUT # 2.5 x10^3/uL (1.8-7.7); NEUT % 46 % (31-73); NITRITE,URINE NEGATIVE (NEG); PH,URINE 7.5 (<5.0-8.0); PLATELET COUNT 234 x10^3/uL (140-400); PROTEIN,URINE NEGATIVE (NEG-TRACE); RED BLOOD COUNT 4.73 x10^6/uL (4.30-5.70); RED CELL DISTRIBUTION WIDTH 14.3 % (11.5-14.5); WHITE BLOOD COUNT 5.4 x10^3/uL (4.0-11.0)
--- NOTE | 2019-10-15 08:26 | PHYS DOC ---
Past Medical History Past Medical History: Constipation, CVA, GERD, High Cholesterol, Hypertension, Seizure, Other Additional Past Medical Histor: cerebvasc disease, resp failure, hydrocephalus, dysphagia,epilepsy Past Surgical History: Other Additional Past Surgical Histo: G-tube, neuro stimulator (BACLOFEN PUMP) Smoking Status: Never Smoker Alcohol Use: None Drug Use: None General Adult EDM: Chief Complaint: COUGH HPI: HPI: Patient is a 59 year old male WITH history of a stroke, dysphasia with G-tube placement, neural stimulator, hydrocephalus, dysphasia, epilepsy, GERD, high cholesterol, hypertension was brought here by EMS from home due to report of cough, aspiration and increasing weakness with confusion since 2 days ago. NO report of fever. Patient has history of aspiration pneumonia, he is nonverbal. no other history was able to obtain at this time. Review of Systems: Review of Systems: not able to obtain due to patient nonverbal stage. Heart Score: Risk Factors: Risk Factors: DM, Current or recent (<one month) smoker, HTN, HLP, family history of CAD, obesity. Risk Scores: Score 0 - 3: 2.5% MACE over next 6 weeks - Discharge Home Score 4 - 6: 20.3% MACE over next 6 weeks - Admit for Clinical Observation Score 7 - 10: 72.7% MACE over next 6 weeks - Early Invasive Strategies Current Medications: Current Medications Medications (Trade) Dose Ordered Sig/Vin Start Time Stop Time Status Last Admin Dose Admin Sodium Chloride 1,000 ml @ 1,000 mls/hr 1X ONCE 10/15/19 08:15 10/15/19 09:14 Allergies: Allergies: Allergies Coded Allergies Type Severity Reaction Last Updated Verified No Known Drug Allergies 09/30/15 No Physical Exam: PE: Constitutional: Well developed, well nourished, no acute distress, non-toxic appearance. [] HENT: Normocephalic, atraumatic, bilateral external ears normal, oropharynx moist, no oral exudates, nose normal. [] Eyes: PERRLA, EOMI, conjunctiva normal, no discharge. [] Neck: Normal range of motion, no tenderness, supple, no stridor. [] Cardiovascular:Heart rate regular rhythm, no murmur [] Lungs & Thorax: Bilateral breath sounds clear to auscultation [] Abdomen: Bowel sounds normal, soft, no tenderness, no masses, no pulsatile masses. Feeding tube in place, indwelling herring catheter in place. Skin: Warm, dry, no erythema, no rash. [] Back: atraumatic Extremities: jignesh upper extremities. Neurologic: patient is awake, alert, nonverbal, responsive to verbal and painful stimuli. Psychologic: not able to evaluate due to condition. Current Patient Data: Labs: Laboratory Tests Test 10/15/19 08:09 White Blood Count 5.4 x10^3/uL Red Blood Count 4.73 x10^6/uL Hemoglobin 14.2 g/dL Hematocrit 42.8 % Mean Corpuscular Volume 90 fL Mean Corpuscular Hemoglobin 30 pg Mean Corpuscular Hemoglobin Concent 33 g/dL Red Cell Distribution Width 14.3 % Platelet Count 234 x10^3/uL Neutrophils (%) (Auto) 46 % Lymphocytes (%) (Auto) 41 % Monocytes (%) (Auto) 11 % Eosinophils (%) (Auto) 1 % Basophils (%) (Auto) 1 % Neutrophils # (Auto) 2.5 x10^3/uL Lymphocytes # (Auto) 2.2 x10^3/uL Monocytes # (Auto) 0.6 x10^3/uL Eosinophils # (Auto) 0.1 x10^3/uL Basophils # (Auto) 0.0 x10^3/uL Urine Collection Type U cath Urine Color Yellow Urine Clarity Clear Urine pH 7.5 Urine Specific Rosamond 1.015 Urine Protein Negative mg/dL Urine Glucose (UA) Negative mg/dL Urine Ketones (Stick) Negative mg/dL Urine Blood Negative Urine Nitrite Negative Urine Bilirubin Negative Urine Urobilinogen Dipstick 1.0 mg/dL Urine Leukocyte Esterase Negative Urine RBC 3-5 /HPF Urine WBC 0 /HPF Urine Squamous Epithelial Cells Occ /LPF Urine Bacteria 0 /HPF Sodium Level 142 mmol/L Potassium Level 4.7 mmol/L Chloride Level 105 mmol/L Carbon Dioxide Level 35 mmol/L Anion Gap 2 Blood Urea Nitrogen 15 mg/dL Creatinine 1.0 mg/dL Estimated GFR (Cockcroft-Gault) 93.2 BUN/Creatinine Ratio 15 Glucose Level 92 mg/dL Lactic Acid Level 1.6 mmol/L Calcium Level 9.2 mg/dL Magnesium Level 2.0 mg/dL Total Bilirubin 0.5 mg/dL Aspartate Amino Transf (AST/SGOT) 18 U/L Alanine Aminotransferase (ALT/SGPT) 21 U/L Alkaline Phosphatase 106 U/L Total Protein 7.1 g/dL Albumin 3.0 g/dL Albumin/Globulin Ratio 0.7 Current Medications Medications (Trade) Dose Ordered Sig/Vin Route PRN Reason Start Time Stop Time Status Last Admin Dose Admin Sodium Chloride 1,000 ml @ 1,000 mls/hr 1X ONCE IV 10/15/19 08:15 10/15/19 09:14 DC 10/15/19 08:28 Iohexol (Omnipaque 300 Mg/ml) 75 ml 1X ONCE IV 10/15/19 10:15 10/15/19 10:16 DC 10/15/19 10:23 Info (CONTRAST GIVEN -- Rx MONITORING) 1 each PRN DAILY PRN MC SEE COMMENTS 10/15/19 10:30 10/17/19 10:29 Piperacillin Sod/ Tazobactam Sod 3.375 gm/Sodium Chloride 50 ml @ 100 mls/hr 1X ONCE IV 10/15/19 11:00 10/15/19 11:29 DC 10/15/19 13:03 Sodium Chloride 1,000 ml @ 75 mls/hr [id number] IV 10/15/19 11:40 10/16/19 11:39 10/15/19 13:03 Vital Signs: Vital Signs Date Time Temp Pulse Resp B/P (MAP) Pulse Ox O2 Delivery O2 Flow Rate FiO2 10/15/19 08:00 96.0 56 18 109/75 (86) 93 Room Air 96.0 EKG: EKG: [] Radiology/Procedures: Radiology/Procedures: [][facility] [address] [place], [place] [id number] IMAGING REPORT Signed PATIENT: SHELLEY POLANCO ACCOUNT: [id number] : 1960 LOCATION: ER AGE: 59 SEX: M EXAM STATUS: REG ER ORD. PHYSICIAN: DEEPAK NUNES DO REASON: COUGH, SUSPECTED ASPIRATION, AMS PROCEDURE: CT CHEST W/CONTRAST CT chest with contrast. HISTORY: Cough, altered mental status, suspected aspiration CT scan of the chest was done using 75 mL Omnipaque 300 contrast. Patient has a prominent substernal thyroid nodule or goiter on the left. There are calcified nodes at the left hilum and mediastinum. There are mild infiltrates or atelectasis in the left lower lobe. There is atelectasis or focal consolidation in the posterior right lower lobe. Visualized portions of the liver and spleen are unremarkable. Adrenal glands are normal. Pancreas is normal. Patient has a vena cava filter. There is a gastrostomy tube. There is increased stool in colon. There is a pain pump catheter in the thoracic spinal canal. IMPRESSION: 1. Focal consolidation or atelectasis in the posterior right lower lobe. 2. Mild atelectasis or infiltrate in the posterior left lower lobe. 3. 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 RS Compliance Statement: One or more of the following individualized dose reduction techniques were utilized for this examination: 1. Automated exposure control 2. Adjustment of the mA and/or kV according to patient size 3. Use of iterative reconstruction technique Electronically signed by: David Meredith MD (10/15/2019 10:32 AM) [facility] DICTATED and SIGNED BY: DAVID MEREDITH MD DATE: 10/15/19 1032 [facility] [address] [place] [address] IMAGING REPORT Signed PATIENT: SHELLEY POLANCO ACCOUNT: [id number] : 1960 LOCATION: ER AGE: 59 SEX: M EXAM STATUS: REG ER ORD. PHYSICIAN: DEEPAK NUNES DO REASON: worsen confusion, has FUSING LINE INSPECTOR SHUNT PROCEDURE: CT HEAD WO CONTRAST CT head without contrast 10/15/2019. Reason for exam: Worsened confusion. History of FUSING LINE INSPECTOR shunt. Noncontrast images were performed. Exposure: One or more of the following individualized dose reduction techniques were utilized for this examination: 1. Automated exposure control 2. Adjustment of the mA and/or kV according to patient size 3. Use of iterative reconstruction technique. Comparison is made with a prior study of 08/27/2019. FINDINGS: There is no apparent intracranial mass, hemorrhage or abnormal extra-axial fluid collection. A shunt tube remains in place entering the right frontal region and extending toward the third ventricle. Positioning is unchanged. Ventricular size is normal and unchanged. Patchy low attenuation is again seen in the cerebral white matter, especially in the frontal lobes. No new area of abnormal density is identified. The ventricles and basilar cisterns are normally positioned. There is no new sinus or mastoid opacification. IMPRESSION: No acute findings in the brain. No change from the prior exam. Electronically signed by: Shelley Horan Jr., MD (10/15/2019 10:18 AM) [facility] DICTATED and SIGNED BY: SHELLEY HORAN Jr, MD DATE: 10/15/19 1018 Course & Med Decision Making: Course & Med Decision Making Pertinent Labs and Imaging studies reviewed. (See chart for details) [Patient is a 59-year-old man who was treated for here from home due to cough possible aspiration, altered mental status. CT scan of the head did not show any acute problem, CT scan chest showed consolidation of the right side of his lung. Patient has history of aspiration patient will be admitted to hospital for IV antibiotic. Discussed with Dr. Chavez who agrees to admit the patient Dragon Disclaimer: Dragtiffanie Disclaimer: This electronic medical record was generated, in whole or in part, using a voice recognition dictation system. Departure Departure Impression: Primary Impression: Aspiration pneumonia Disposition: ADMITTED INPATIENT Admitting Physician: ANA MARIA (Dr. Chavez) Condition: STABLE Referrals: HERMINIO JACOBS (PCP) Justicifation of Admission Dx: Justifications for Admission: Justification of Admission Dx: N/A DEEPAK NUNES DO Oct 15, 2019 08:26
[2019-10-15 08:35] LABS: CALCIUM 9.2 mg/dL (8.5-10.1); GFR 93.2; POTASSIUM 4.7 mmol/L (3.5-5.1)
[2019-10-15 08:37] LABS: BACTERIA,URINE 0 /HPF (0-FEW); SQUAMOUS EPITHELIAL CELL,UR OCC /LPF; WBC,URINE 0 /HPF (0-4)
[2019-10-15 08:40] LABS: ALBUMIN/GLOBULIN RATIO 0.7 (1.0-1.7); TOTAL BILIRUBIN 0.5 mg/dL (0.2-1.0); TOTAL PROTEIN 7.1 g/dL (6.4-8.2)
--- NOTE | 2019-10-15 08:41 | RAD ---
AP portable chest 10/15/2019. Reason for exam: Cough. Possible aspiration. Comparison is made with a study of 10/07/2019. Shunt tubing is again seen crossing the right hemithorax. Focal infiltrate or atelectasis is again seen medially at the right lung base. The retrocardiac left lower lobe is difficult to evaluate, but appears grossly clear and unchanged. No new infiltrate or effusion is seen. The heart remains mildly enlarged. IMPRESSION: Similar findings of prior study. Minimal infiltrate or atelectasis at the right lung base. Left lower lobe difficult to evaluate. Electronically signed by: Mauricio Horan Jr., MD (10/15/2019 8:38 AM) [facility]
[2019-10-15] MEDS ORDERED: IOHEXOL 300 MG/ML 100ML VIAL. IV ONE (10:15)
--- NOTE | 2019-10-15 10:21 | RAD ---
CT head without contrast 10/15/2019. Reason for exam: Worsened confusion. History of ACCOUNT LIAISON shunt. Noncontrast images were performed. Exposure: One or more of the following individualized dose reduction techniques were utilized for this examination: 1. Automated exposure control 2. Adjustment of the mA and/or kV according to patient size 3. Use of iterative reconstruction technique. Comparison is made with a prior study of 08/27/2019. FINDINGS: There is no apparent intracranial mass, hemorrhage or abnormal extra-axial fluid collection. A shunt tube remains in place entering the right frontal region and extending toward the third ventricle. Positioning is unchanged. Ventricular size is normal and unchanged. Patchy low attenuation is again seen in the cerebral white matter, especially in the frontal lobes. No new area of abnormal density is identified. The ventricles and basilar cisterns are normally positioned. There is no new sinus or mastoid opacification. IMPRESSION: No acute findings in the brain. No change from the prior exam. Electronically signed by: Mauricio Horan Jr., MD (10/15/2019 10:18 AM) [facility]
[2019-10-15] MEDS ORDERED: CONTRAST GIVEN. MC PRN (10:30)
--- NOTE | 2019-10-15 10:35 | RAD ---
CT chest with contrast. HISTORY: Cough, altered mental status, suspected aspiration CT scan of the chest was done using 75 mL Omnipaque 300 contrast. Patient has a prominent substernal thyroid nodule or goiter on the left. There are calcified nodes at the left hilum and mediastinum. There are mild infiltrates or atelectasis in the left lower lobe. There is atelectasis or focal consolidation in the posterior right lower lobe. Visualized portions of the liver and spleen are unremarkable. Adrenal glands are normal. Pancreas is normal. Patient has a vena cava filter. There is a gastrostomy tube. There is increased stool in colon. There is a pain pump catheter in the thoracic spinal canal. IMPRESSION: 1. Focal consolidation or atelectasis in the posterior right lower lobe. 2. Mild atelectasis or infiltrate in the posterior left lower lobe. 3. 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 PQRS Compliance Statement: One or more of the following individualized dose reduction techniques were utilized for this examination: 1. Automated exposure control 2. Adjustment of the mA and/or kV according to patient size 3. Use of iterative reconstruction technique Electronically signed by: David Meredith MD (10/15/2019 10:32 AM) [facility]
[2019-10-15] MEDS ORDERED: PIPERACILLIN/TAZOBACTAM 3.375 GM in IV NORMAL SALINE 50ML 50 ML IV ONE (11:00)
[2019-10-15] MEDS ORDERED: ONDANSETRON PF 4 MG/2 ML VIAL. IV PRN (11:45)
[2019-10-15] MEDS ORDERED: PIP/TAZO PER PHARMACY MC PRN (11:45)
--- NOTE | 2019-10-15 12:54 | HP ---
ADMIT DATE: 10/15/2019 CHIEF COMPLAINT: Cough. HISTORY OF PRESENT ILLNESS: The patient is a pleasant 59-year-old male who has had a large stroke and lives at a facility. He has a G-tube, neurostimulator. He is contracted on the right. He has hydrocephalus, dysphagia, epilepsy and basically started choking. He has been confused. EMS was called. When he got to our Emergency Room, we did a chest x-ray, which is showing probable aspiration pneumonia. I discussed the case with ER physician. We are going to admit the patient, give IV antibiotics and consult Pulmonary Medicine. PAST MEDICAL HISTORY: Constipation, stroke, GERD, hyperlipidemia, hypertension, seizures, stroke, respiratory failure, hydrocephalus, dysphagia, epilepsy, G-tube, neurostimulator (baclofen pump), CREEL CLEANER shunt. ALLERGIES: None. FAMILY HISTORY: Diabetes. SOCIAL HISTORY: He does not drink, smoke or take drugs. I believe he lives at a facility. MEDICATIONS: Reviewed, please refer to the MRAD. REVIEW OF SYSTEMS: Unable to obtain. PHYSICAL EXAMINATION: VITALS: Within normal limits and are stable. GENERAL: He is obtunded. HEENT: It appears he probably has a CREEL CLEANER shunt. EYES: Extraocular muscles are intact, pupils are equally round and reactive to light and accommodation. MUSCULOSKELETAL: Well developed, well nourished, good range of motion. ENDOCRINE: No thyromegaly was palpated. LYMPHATICS: No cervical chain or axillary nodes were noted. HEMATOPOIETIC: No bruising. NECK: Supple, no JVD, no thyromegaly was noted. LUNGS: Clear to auscultation in all lung danielle without rhonchi or wheezing. HEART: RRR, S1, S2 present. Peripheral pulses intact, no obvious murmurs were noted. ABDOMEN: He has a PEG. EXTREMITIES: Without any cyanosis, clubbing, or edema. Pedal pulses intact, Homans sign is negative. NEUROLOGIC: He is unable to speak. His right side is contracted. PSYCHIATRIC: Normal affect, normal mood. Stable. SKIN: No ulcerations or rashes, good skin turgor, no jaundice. VASCULAR: Good capillary refill, neurovascular bundle appears to be intact. LABORATORY DATA: Electrolytes are normal. Hematology is normal. Urinalysis negative. CT of the head shows no acute findings. There is a shunt tube noted. CT of the chest shows right lower lobe consolidation and some mild atelectasis or infiltrate in the left lower lobe and a prominent left substernal thyroid mass or goiter. ASSESSMENT AND PLAN: Probable aspiration pneumonia. The patient is being admitted. We will consult Pulmonary Medicine. IV antibiotics, DuoNebs. I will continue his home meds, DVT prophylaxis. Full code. Ana Menjivar. LEYDI OWENS DO DR: JOLENE/gladis JOB#: [id number] / [id number]
[2019-10-15] MEDS: IV NORMAL SALINE 1000ML BAG 1,000 ML IV SCH (13:03)
[2019-10-15 15:10] VITALS: BP 123/88
[2019-10-15] MEDS: PIPERACILLIN/TAZOBACTAM 3.375 GM in IV NORMAL SALINE 50ML 50 ML IV SCH ×2 (18:20→22:47)
[2019-10-15 19:49] VITALS: BP 117/68
[2019-10-15 22:34] VITALS: BP 121/77
--- NOTE | 2019-10-15 22:34 | NUR ---
Pt transferred to P500. Condom cath placed as report given that pt is a heavy wetter. In brief - no urine noted this shift. Pt interactive before transferring to another bed. Afterwards pt not making eye contact or responding to questions. RN explained to pt the need for P500. Pt did not acknowledge RN teaching. Placed supine on new bed - will continue to monitor pt status.
[2019-10-16] VITALS (7 sets, daily range): BP systolic 91–117; BP diastolic 60–80
[2019-10-16] MEDS ORDERED: POLYETHYLENE GLYCOL 3350 17 GM PACKET. GT PRN
[2019-10-16] MEDS ORDERED: MAGNESIUM HYDROXIDE 2,400 MG/30 ML ORAL.SUSP. GT PRN
[2019-10-16] MEDS ORDERED: MODA100T2 GT (00:03)
[2019-10-16] MEDS ORDERED: ALBUTEROL SULFATE 2.5 MG/3 ML NEBU. NEB PRN (00:15)
[2019-10-16] MEDS ORDERED: POLYVINYL ALCOHOL 1.4% OPHTH SOLUTION 15ML BOTTLE. OU PRN (00:15)
[2019-10-16] MEDS: IV NORMAL SALINE 1000ML BAG 1,000 ML IV SCH (02:22)
[2019-10-16] MEDS: PIPERACILLIN/TAZOBACTAM 3.375 GM in IV NORMAL SALINE 50ML 50 ML IV SCH ×3 (07:13→18:28)
[2019-10-16] MEDS: MODAFINIL 100 MG GT SCH (09:00)
[2019-10-16] MEDS ORDERED: DOCUSATE 100 MG/10 ML SOLUTION. GT PRN (09:00)
[2019-10-16] MEDS ORDERED: LOSARTAN POTASSIUM 50 MG TABLET. PO PRN (09:00)
[2019-10-16] MEDS: CITALOPRAM 20 MG TABLET. PO SCH (09:20)
[2019-10-16] MEDS: amLODIPine BESYLATE 10 MG TABLET PO SCH (09:20)
[2019-10-16] MEDS: ASPIRIN CHEWABLE 81 MG TABLET. PO SCH (09:20)
[2019-10-16] MEDS: LANSOPRAZOLE 30 MG TAB.RAP.DR GT SCH (09:20)
--- NOTE | 2019-10-16 10:09 | PDOC ---
Infectious Disease Note Vital Sign Vital Signs Vital Signs Date Time Temp Pulse Resp B/P (MAP) Pulse Ox O2 Delivery O2 Flow Rate FiO2 10/16/19 09:20 87 114/73 10/16/19 08:10 Room Air 10/16/19 07:22 96.8 17 96 96.8 Objective Assessment pt seen, consult dictated Plan Plan of Care / LEVI SINGH MD Oct 16, 2019 10:09
--- NOTE | 2019-10-16 10:23 | CONS ---
DATE OF CONSULTATION: PULMONARY CONSULTATION ATTENDING PHYSICIAN: Mateus Chavez DO REASON FOR CONSULTATION: Pneumonia. HISTORY OF PRESENT ILLNESS: The patient is a 59-year-old male who has history of stroke, history of dysphagia with G-tube placement, history of neuro stimulator, hydrocephalus, dysphagia, epilepsy and multiple other medical problems. He was brought into the hospital by EMS for cough and suspected aspiration. He also had some confusion and increasing weakness for the last few days. I am unable to obtain much history from the patient. Review of the labs revealed that his white cell count was normal at 5.4. Review of the vitals does not reveal any fever. The patient's imaging study was reviewed. He had a CT head, which did not show any acute findings. The patient also had a CT chest, which was reviewed by me and I had compared the one from May. The patient has a focal consolidation, which is rounded in the posterior right lower lobe, which is actually improved since May. There is mild atelectasis in the left lower lobe. There is prominent left substernal thyroid mass or goiter. He is currently on room air and does not appear to be in any obvious respiratory distress. PAST MEDICAL HISTORY: Significant for CVA, history of GERD, dyslipidemia, hypertension, seizure, history of G-tube, history of neuro stimulator, hydrocephalus, dysphagia. PAST SURGICAL HISTORY: G-tube placement and neuro stimulator/baclofen pump. ALLERGIES: None. MEDICATIONS: Reviewed as listed in the MRAD including antibiotic, Zosyn. REVIEW OF SYSTEMS: Unable to obtain from the patient. SOCIAL HISTORY: [facility]. PHYSICAL EXAMINATION: VITAL SIGNS: Reviewed. He is afebrile, pulse ox 96% on room air, blood pressure is stable. NECK: Supple. LUNGS: With diminished breath sounds. CARDIOVASCULAR: With a regular rate and rhythm. ABDOMEN: Soft. EXTREMITIES: With no pitting edema. LABORATORY DATA: Labs were reviewed. White cell count 5.4, hemoglobin 14.2 and platelets 234. BUN 15, creatinine 1.0. IMPRESSION: 1. Suspected chronic aspiration. 2. Abnormal CT chest with focal consolidation in the right lower lobe. This has actually improved since May CT chest. There is some minimal atelectasis involving the bases. No signs of an acute infection. 3. 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 4. History of cerebrovascular accident. 5. History of baclofen pump. 6. History of hydrocephalus. RECOMMENDATIONS: 1. From a pulmonary standpoint, he is afebrile. He does not have a fever. He needs to be closely watched for signs of aspiration. 2. Keep head of the bed elevated at 30 degrees. 3. Suspicion for COVID is less. Result of the test is pending. 4. Continue supportive care. 5. Discussed with RN. We will follow along with you. 6. If he remains afebrile in the next 24 hours then he could be [facility] back [facility]. AARON MEADOWS MD DR: ANTONIO/gladis JOB#: [id number] / [id number]
--- NOTE | 2019-10-16 10:38 | CONS ---
DATE OF CONSULTATION: 10/16/2019 REQUESTING PHYSICIAN: Mateus Chavez DO REASON FOR CONSULTATION: Possible aspiration pneumonia. HISTORY OF PRESENT ILLNESS: This is a 59-year-old gentleman with a large stroke in the past. The patient is taken care of by mother at home. The patient was brought in through the ambulance apparently for weakness, cough, some more confusion for 2 days. No fever. No nausea, vomiting, or diarrhea. The patient is alert, awake, able to nod appropriately. He is not hypoxic. He has not had fever and white count is normal. Chest x-ray showed infiltrate, which probably is chronic since the patient is not at all hypoxic. The patient does have a history of recurrent aspiration in the past. The patient is alert, awake, nods and has no other complaints or problems. PAST MEDICAL HISTORY: Positive for large CVA, gastroesophageal reflux disease, dysphagia with PEG tube is in place, hyperlipidemia, hypertension, diabetes, hydrocephalus. SOCIAL HISTORY: Negative for smoking, alcohol or illicit drug use. Taken care of by mother at home. ALLERGIES: No known drug allergies. CURRENT MEDICATIONS: Reviewed. The patient is on Zosyn. REVIEW OF SYSTEMS: As per HPI, all other systems reviewed and are negative. PHYSICAL EXAMINATION: GENERAL: Awake gentleman, not in distress. The patient is not on any oxygen. VITAL SIGNS: Stable, afebrile. HEENT: NAD. NECK: Supple, no JVP, no lymphadenopathy. LUNGS: Clear. HEART: S1, S2 regular. ABDOMEN: Benign. EXTREMITIES: No edema, cyanosis. SKIN: Unremarkable. NEUROLOGIC: The patient is a total care. He does not have any upper or lower extremity function. LABORATORY DATA: White count is normal at 5.4 and platelets are normal. BUN and creatinine is normal. Urinalysis unremarkable. Chest x-ray and CT done. CT showed a right lower lobe infiltrate. IMPRESSION: 1. Aspiration pneumonia, probably it is acute on chronic, cannot be completely ruled out. 2. Large cerebrovascular accident. 3. Change in mental status, apparently has improved now. 4. Hypertension. 5. Diabetes. RECOMMENDATIONS: The patient can be discharged home with oral Augmentin through the PEG tube. Thank you very much, Dr. Chavez, for giving me the opportunity to participate in this patient's care. LEVI SINGH MD DR: AC/gladis JOB#: [id number] / [id number]
--- NOTE | 2019-10-16 10:50 | PDOC ---
[employer] PROGRESS NOTE Chief Complaint Chief Complaint Aspiration pneumonia, probably it is acute on chronic, cannot be completely ruled out. Large cerebrovascular accident. Change in mental status, apparently has improved now. Hypertension. Diabetes. Suspected chronic aspiration. 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 History of Present Illness History of Present Illness 10/16/2019 Patient is seen and examined Charts reviewed Discussed with RN The patient is a pleasant 59-year-old male who has had a large stroke and lives at a facility. He has a G-tube, neurostimulator. He is contracted on the right. He has hydrocephalus, dysphagia, epilepsy and basically started choking. He has been confused. EMS was called. When he got to our Emergency Room, we did a chest x-ray, which is showing probable aspiration pneumonia. I discussed the case with ER physician. We are going to admit the patient, give IV antibiotics and consult Pulmonary Medicine. Vitals/I&O Vitals/I&O: Vital Signs Date Time Temp Pulse Resp B/P (MAP) Pulse Ox O2 Delivery O2 Flow Rate FiO2 10/16/19 09:20 87 114/73 10/16/19 08:10 Room Air 10/16/19 07:22 96.8 17 96 96.8 I & O 10/15/19 10/15/19 10/16/19 15:00 23:00 07:00 Intake Total 1050 ml 0 ml Output Total 400 ml Balance 1050 ml 0 ml -400 ml Physical Exam General: Alert Heart: Regular rate, No murmurs Lungs: Clear, Other Abdomen: Normal bowel sounds Extremities: No tenderness/swelling Skin: No significant lesion Review of Systems Review of Systems: Other systems are otherwise negative Assessment and Plan Assessmemt and Plan Problems Medical Problems: (1) Aspiration pneumonia Status: Acute Assessment Aspiration pneumonia, probably it is acute on chronic, cannot be completely ruled out. Large cerebrovascular accident. Change in mental status, apparently has improved now. Hypertension. Diabetes. Suspected chronic aspiration. 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 Plan Breathing treatments IV antibiotics DuoNebs. Home meds DVT prophylaxis Full code P.r.nAlma Menjivar. Appreciate subspecialist input Comment Review of Relevant I have reviewed the following items madelyn (where applicable) has been applied. Medications: Current Medications Medications (Trade) Dose Ordered Sig/Vin Route PRN Reason Start Time Stop Time Status Last Admin Dose Admin Piperacillin Sod/ Tazobactam Sod 3.375 gm/Sodium Chloride 50 ml @ 100 mls/hr 1X ONCE IV 10/15/19 11:00 10/15/19 11:29 DC 10/15/19 13:03 Sodium Chloride 1,000 ml @ 75 mls/hr [id number] IV 10/15/19 11:40 10/16/19 11:39 10/16/19 02:22 Piperacillin Sod/ Tazobactam Sod 3.375 gm/Sodium Chloride 50 ml @ 100 mls/hr Q6HRS IV 10/15/19 18:00 10/16/19 07:13 Amlodipine Besylate (Norvasc) 10 mg DAILY PO 10/16/19 09:00 10/16/19 09:20 Aspirin (Aspirin Chewable) 81 mg DAILY PO 10/16/19 09:00 10/16/19 09:20 Lansoprazole (Prevacid) 30 mg DAILYAC GT 10/16/19 07:30 10/16/19 09:20 Citalopram Hydrobromide (CeleXA) 40 mg DAILY PO 10/16/19 09:00 10/16/19 09:20 Justicifation of Admission Dx: Justifications for Admission: Justification of Admission Dx: N/A LEYDI OWENS III DO Oct 16, 2019 10:50
--- NOTE | 2019-10-16 16:50 | NUR ---
SW following. Spoke with RN and reviewed chart. Pt from home. Pt lives with his mom. Pt on room air. Pt's IV Zosyn was discontinued. Pt on PO medications. SW attempted to call into pt's room but there was no answer. RN stated no SW needs at discharge. Pt is COVID negative.
--- NOTE | 2019-10-16 17:08 | NUR ---
Pt transferred by bed from room 670 to room 432. Transfer report given to TOM Zheng and TOM Lopez.
--- NOTE | 2019-10-16 17:21 | NUR ---
Patient arrived to floor at 1700 via bed. Patient is alert but nonverbal and communicates with left hand and head nods. Call light is within reach. IV is running normal saline at 50ml/hr through R. AC. Will continue to monitor.
[2019-10-16] MEDS ORDERED: ATORVASTATIN CALCIUM 40 MG TABLET. PO SCH (21:00)
[2019-10-16] MEDS ORDERED: GLYCOPYRROLATE 1 MG TABLET PO SCH (21:00)
[2019-10-16] MEDS ORDERED: PSYLLIUM HUSK (SUGAR FREE) 1 PKT PACKET PO SCH (21:00)
[2019-10-17] MEDS: PIPERACILLIN/TAZOBACTAM 3.375 GM in IV NORMAL SALINE 50ML 50 ML IV SCH ×2 (01:05→06:16)
[2019-10-17 03:00] VITALS: BP 101/69
[2019-10-17 07:18] VITALS: BP 109/61
--- NOTE | 2019-10-17 08:01 | EKG ---
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
[2019-10-17] MEDS: amLODIPine BESYLATE 10 MG TABLET PO SCH ×2 (09:00→09:47)
--- NOTE | 2019-10-17 09:39 | NUR ---
MAGDALENA following. Discussed with RN, pt from home with mother, non-verbal. RN anticipates possible discharge home today. MAGDALENA will continue to follow. Addendum: 10/17/19 at 1350 by STANLEY NICHOLS Pt discharging home via [facility] at 1430. MAGDALENA spoke with pt's mother, she reported they have services through [facility], denied any other needs. RN and pt's mother notified of discharge time.
[2019-10-17] MEDS: MODAFINIL 100 MG GT SCH (09:46)
[2019-10-17] MEDS: ASPIRIN CHEWABLE 81 MG TABLET. PO SCH (09:46)
[2019-10-17] MEDS: LANSOPRAZOLE 30 MG TAB.RAP.DR GT SCH (09:46)
--- NOTE | 2019-10-17 09:48 | PDOC ---
Infectious Disease Note Subjective Subjective pt is about his baseline awake, nodes yes to wanting to go home ROS ROS no n/v/d/sob Vital Sign Vital Signs Vital Signs Date Time Temp Pulse Resp B/P (MAP) Pulse Ox O2 Delivery O2 Flow Rate FiO2 10/17/19 07:18 97.6 58 18 109/61 (77) 95 Room Air 97.6 Physical Exam PHYSICAL EXAM GENERAL: Awake gentleman, not in distress. The patient is not on any oxygen. VITAL SIGNS: Stable, afebrile. HEENT: NAD. NECK: Supple, no JVP, no lymphadenopathy. LUNGS: Clear. HEART: S1, S2 regular. ABDOMEN: Benign. EXTREMITIES: No edema, cyanosis. SKIN: Unremarkable. NEUROLOGIC: The patient is a total care. He does not have any upper or lower extremity function. nodes to simple questions Labs Micro Microbiology 10/15/19 Blood Culture - Final, Complete Objective Assessment 1. Aspiration pneumonia, probably it is acute on chronic, cannot be completely ruled out. 2. Large cerebrovascular accident. 3. Change in mental status, apparently has improved now. 4. Hypertension. 5. Diabetes. Plan Plan of Care d/c ok on po augmentin LEVI SINGH MD Oct 17, 2019 09:48
[2019-10-17] MEDS: CITALOPRAM 20 MG TABLET. PO SCH (09:56)
[2019-10-17 10:53] VITALS: BP 112/59
--- NOTE | 2019-10-17 11:26 | PDOC ---
PROGRESS NOTES Date of Service: DATE: 10/17/19 TIME: 11:25 Chief Complaint Chief Complaint discharge dx Aspiration pneumonia, probably it is acute on chronic, cannot be completely ruled out. Large cerebrovascular accident. Change in mental status, apparently has improved now. Hypertension. Diabetes. Suspected chronic aspiration. 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 d/c planning 36 min History of Present Illness History of Present Illness 10/16/2019 Patient is seen and examined Charts reviewed Discussed with RN The patient is a pleasant 59-year-old male who has had a large stroke and lives at a facility. He has a G-tube, neurostimulator. He is contracted on the right. He has hydrocephalus, dysphagia, epilepsy and basically started choking. He has been confused. EMS was called. When he got to our Emergency Room, we did a chest x-ray, which is showing probable aspiration pneumonia. I discussed the case with ER physician. We are going to admit the patient, give IV antibiotics and consult Pulmonary Medicine. Vitals Vitals Vital Signs Date Time Temp Pulse Resp B/P (MAP) Pulse Ox O2 Delivery O2 Flow Rate FiO2 10/17/19 10:53 98.1 61 20 112/59 (76) 96 Room Air 98.1 Physical Exam Physical Exam GENERAL: Awake gentleman, not in distress. The patient is not on any oxygen. VITAL SIGNS: Stable, afebrile. HEENT: NAD. NECK: Supple, no JVP, no lymphadenopathy. LUNGS: Clear. HEART: S1, S2 regular. ABDOMEN: Benign. EXTREMITIES: No edema, cyanosis. SKIN: Unremarkable. NEUROLOGIC: The patient is a total care. He does not have any upper or lower extremity function. nodes to simple questions General: Alert, Oriented X3, Cooperative, No acute distress Heart: Regular rate, No murmurs Lungs: Clear, Other Abdomen: Normal bowel sounds Extremities: No cyanosis, No tenderness/swelling Skin: No significant lesion Assessment and Plan Assessmemt and Plan Problems Medical Problems: (1) Aspiration pneumonia Status: Acute Comment Review of Relevant I have reviewed the following items madelyn (where applicable) has been applied. Labs Laboratory Tests Test 10/15/19 14:10 Coronavirus (PCR) Not detected (Not Detected) Microbiology 10/15/19 Blood Culture - Final, Complete Medications Current Medications Sodium Chloride 1,000 ml @ 1,000 mls/hr 1X ONCE IV Last administered on 10/15/19at 08:28; Start 10/15/19 at 08:15; Stop 10/15/19 at 09:14; Status DC Iohexol (Omnipaque 300 Mg/ml) 75 ml 1X ONCE IV Last administered on 10/15/19at 10:23; Start 10/15/19 at 10:15; Stop 10/15/19 at 10:16; Status DC Info (CONTRAST GIVEN -- Rx MONITORING) 1 each PRN DAILY PRN MC SEE COMMENTS; Start 10/15/19 at 10:30; Stop 10/17/19 at 10:29; Status DC Piperacillin Sod/ Tazobactam Sod 3.375 gm/Sodium Chloride 50 ml @ 100 mls/hr 1X ONCE IV Last administered on 10/15/19at 13:03; Start 10/15/19 at 11:00; Stop 10/15/19 at 11:29; Status DC Ondansetron HCl (Zofran) 4 mg PRN Q8HRS PRN IV NAUSEA/VOMITING; Start 10/15/19 at 11:45; Stop 10/16/19 at 11:44; Status DC Sodium Chloride 1,000 ml @ 75 mls/hr [id number] IV Last administered on 10/16/19at 02:22; Start 10/15/19 at 11:40; Stop 10/16/19 at 11:39; Status DC Piperacillin Sod/ Tazobactam Sod (Zosyn Per Pharmacy) 1 each PRN DAILY PRN MC SEE COMMENTS; Start 10/15/19 at 11:45; Stop 10/17/19 at 09:49; Status DC Piperacillin Sod/ Tazobactam Sod 3.375 gm/Sodium Chloride 50 ml @ 100 mls/hr Q6HRS IV Last administered on 10/17/19at 06:16; Start 10/15/19 at 18:00; Stop 10/17/19 at 09:49; Status DC Amlodipine Besylate (Norvasc) 10 mg DAILY PO Last administered on 10/16/19at 09 :20; Start 10/16/19 at 09:00 Aspirin (Aspirin Chewable) 81 mg DAILY PO Last administered on 10/17/19at 09:46; Start 10/16/19 at 09:00 Atorvastatin Calcium (Lipitor) 40 mg HS PO Last administered on 10/16/19at 21:48; Start 10/16/19 at 21:00 Albuterol Sulfate (Ventolin Neb Soln) 2.5 mg PRN QID PRN NEB SHORTNESS OF BREATH; Start 10/16/19 at 00:15 Lansoprazole (Prevacid) 30 mg DAILYAC GT Last administered on 10/17/19at 09:46; Start 10/16/19 at 07:30 Magnesium Hydroxide (Milk Of Magnesia) 400 mg PRN DAILY PRN GT CONSTIPATION 3RD CHOICE; Start 10/16/19 at 00:00 Polyethylene Glycol (miraLAX PACKET) 17 gm PRN DAILY PRN GT CONSTIPATION 1ST CHOICE; Start 10/16/19 at 00:00 Scopolamine (Transderm-Scop) 1 patch Q3DAYS TD ; Start 10/18/19 at 09:00 Artificial Tears (Artificial Tears) 1 drop PRN Q4HRS PRN OU DRY EYE; Start 10/16/19 at 00:15 Citalopram Hydrobromide (CeleXA) 40 mg DAILY PO Last administered on 10/17/19at 09:56; Start 10/16/19 at 09:00 Glycopyrrolate (Robinul) 1 mg QHS PO Last administered on 10/16/19at 21:48; Start 10/16/19 at 21:00 Losartan Potassium (Cozaar) 100 mg PRN DAILY PRN PO SBP>160; Start 10/16/19 at 09:00 Non-Formulary Medication (Modafinil (Provigil)) 100 mg DAILY GT Last administered on 10/17/19at 09:46; Start 10/16/19 at 09:00 Psyllium Hydrophilic Mucilloid (Metamucil Fiber Packet) 1 pkt QHS PO Last administered on 10/16/19at 21:48; Start 10/16/19 at 21:00 Docusate Sodium (Colace Solution) 250 mg PRN BID PRN GT CONSTIPATION 2ND CHOICE; Start 10/16/19 at 09:00 Amoxicillin/ Clavulanate Potassium (Augmentin 400-57mg/5ml Susp) 5 ml Q12HR PEG ; Start 10/17/19 at 21:00 Active Scripts Active Keflex (Cephalexin) 500 Mg Capsule 1 Cap PO TID 10 Days Bactrim Ds Tablet (Sulfamethoxazole/Trimethoprim) 1 Each Tablet 1 Tab PO BID 10 Days Augmentin 250-62.5 Mg/5 Ml (Amoxicillin/Potassium Clav) 250 Mg/5 Ml Susp.recon 10 Ml PO BID 10 Days Konsyl (Psyllium Husk) 6 Gm Packet 6 Gm PO QHS 30 Days Polyethylene Glycol 3350 17 Gm Powd.pack 17 Gm GT PRN DAILY 30 Days Losartan Potassium 100 Mg Tablet 1 Tab PO PRN DAILY PRN 30 Days Reported Modafinil 100 Mg Tablet 100 Mg GT DAILY OK for pt to use home meds Glycopyrrolate 2 Mg Tablet 1 Mg PO HS Amlodipine Besylate 10 Mg Tablet 10 Mg PO DAILY Transderm-Scop (Scopolamine) 1 Each Patch.td72 1 Patch TP Q3DAYS Provigil (Modafinil) 100 Mg Tablet 100 Mg GT DAILY Prevacid (Lansoprazole) 30 Mg Tab.rap.dr 30 Mg DAILY Milk Of Magnesia (Magnesium Hydroxide) 400 Mg/5 Ml Oral.susp 400 Mg GT PRN DAILY PRN Lipitor (Atorvastatin Calcium) 40 Mg Tablet 40 Mg PO HS Lexapro (Escitalopram Oxalate) 20 Mg Tablet 20 Mg PO DAILY Duoneb 0.5 Mg-3 Mg/3 Ml Soln (Ipratropium/Albuterol Sulfate) 3 Ml Ampul.neb 3 Ml IH QIDPRN PRN [colace syrup] 25 Ml GT PRN BID PRN Aspirin 81 Mg Tab.chew 81 Mg PO DAILY Artificial Tears Drops (Dextran 70/Hypromellose/Pf) 1 Each Droperette 1 Each OU PRN Q4HRS PRN Vitals/I & O Vital Sign - Last 24 Hours 10/16/19 10/16/19 10/16/19 10/16/19 15:04 17:44 17:45 19:00 Temp 97.2 97.7 98.4 97.2 97.7 98.4 Pulse 61 61 71 Resp 18 16 19 B/P (MAP) 106/70 (82) 115/78 (90) 98/60 (73) Pulse Ox 97 94 94 O2 Delivery Room Air Room Air Room Air Room Air 10/16/19 10/16/19 10/17/19 10/17/19 20:30 23:00 03:00 07:18 Temp 98.4 98.4 97.6 98.4 98.4 97.6 Pulse 64 50 58 Resp 18 19 18 B/P (MAP) 91/64 (73) 101/69 (80) 109/61 (77) Pulse Ox 94 95 95 O2 Delivery Room Air Room Air Room Air Room Air 10/17/19 10/17/19 10/17/19 08:00 09:00 10:53 Temp 98.1 98.1 Pulse 49 61 Resp 20 B/P (MAP) 106/71 112/59 (76) Pulse Ox 96 O2 Delivery Room Air Room Air Intake and Output 10/16/19 10/16/19 10/17/19 15:00 23:00 07:00 Intake Total 50 ml 0 ml 0 ml Output Total 450 ml 650 ml 975 ml Balance -400 ml -650 ml -975 ml Justicifation of Admission Dx: Justifications for Admission: Justification of Admission Dx: N/A TRUDI HUANG MD Oct 17, 2019 11:26
--- NOTE | 2019-10-17 13:08 | PDOC3 ---
Discharge Summary Date of Admission: Oct 15, 2019 Date of Discharge: Oct 17, 2019 Follow-Up: 1-2 days Admitting Diagnosis comment: discharge dx Aspiration pneumonia, probably it is acute on chronic, Large cerebrovascular accident.old Change in mental status, has improved Hypertension. Diabetes. Suspected chronic aspiration. 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 d/c planning 36 min History of Present Illness History of Present Illness 10/16/2019 Patient is seen and examined Charts reviewed Discussed with RN The patient is a pleasant 59-year-old male who has had a large stroke and lives at a facility. He has a G-tube, neurostimulator. He is contracted on the right. He has hydrocephalus, dysphagia, epilepsy and basically started choking. He has been confused. EMS was called. When he got to our Emergency Room, we did a chest x-ray, which is showing probable aspiration pneumonia. I discussed the case with ER physician. We are going to admit the patient, give IV antibiotics and consult Pulmonary Medicine. Vitals Vitals Vital Signs Date Time Temp Pulse Resp B/P (MAP) Pulse Ox O2 Delivery O2 Flow Rate FiO2 10/17/19 10:53 98.1 61 20 112/59 (76) 96 Room Air 98.1 Physical Exam Physical Exam GENERAL: Awake gentleman, not in distress. The patient is not on any oxygen. VITAL SIGNS: Stable, afebrile. HEENT: NAD. NECK: Supple, no JVP, no lymphadenopathy. LUNGS: Clear. HEART: S1, S2 regular. ABDOMEN: Benign. EXTREMITIES: No edema, cyanosis. SKIN: Unremarkable. NEUROLOGIC: The patient is a total care. He does not have any upper or lower extremity function. nodes to simple questions General: Alert, Oriented X3, Cooperative, No acute distress Heart: Regular rate, No murmurs Lungs: Clear, Other Abdomen: Normal bowel sounds Extremities: No cyanosis, No tenderness/swelling Skin: No significant lesion FINAL DIAGNOSIS Problems Medical Problems: (1) Aspiration pneumonia Status: Acute Brief Hospital Course Mr. Georges is a 59 old [sex] who presented with [aspiration pneumonia ] CONDITION AT DISCHARGE: Improved Discharge Medications Current Medications Sodium Chloride 1,000 ml @ 1,000 mls/hr 1X ONCE IV Last administered on 10/15/19at 08:28; Start 10/15/19 at 08:15; Stop 10/15/19 at 09:14; Status DC Iohexol (Omnipaque 300 Mg/ml) 75 ml 1X ONCE IV Last administered on 10/15/19at 10:23; Start 10/15/19 at 10:15; Stop 10/15/19 at 10:16; Status DC Info (CONTRAST GIVEN -- Rx MONITORING) 1 each PRN DAILY PRN MC SEE COMMENTS; Start 10/15/19 at 10:30; Stop 10/17/19 at 10:29; Status DC Piperacillin Sod/ Tazobactam Sod 3.375 gm/Sodium Chloride 50 ml @ 100 mls/hr 1X ONCE IV Last administered on 10/15/19at 13:03; Start 10/15/19 at 11:00; Stop 10/15/19 at 11:29; Status DC Ondansetron HCl (Zofran) 4 mg PRN Q8HRS PRN IV NAUSEA/VOMITING; Start 10/15/19 at 11:45; Stop 10/16/19 at 11:44; Status DC Sodium Chloride 1,000 ml @ 75 mls/hr [id number] IV Last administered on 10/16/19at 02:22; Start 10/15/19 at 11:40; Stop 10/16/19 at 11:39; Status DC Piperacillin Sod/ Tazobactam Sod (Zosyn Per Pharmacy) 1 each PRN DAILY PRN MC SEE COMMENTS; Start 10/15/19 at 11:45; Stop 10/17/19 at 09:49; Status DC Piperacillin Sod/ Tazobactam Sod 3.375 gm/Sodium Chloride 50 ml @ 100 mls/hr Q6HRS IV Last administered on 10/17/19at 06:16; Start 10/15/19 at 18:00; Stop 10/17/19 at 09:49; Status DC Amlodipine Besylate (Norvasc) 10 mg DAILY PO Last administered on 10/16/19at 09:20; Start 10/16/19 at 09:00 Aspirin (Aspirin Chewable) 81 mg DAILY PO Last administered on 10/17/19at 09:46; Start 10/16/19 at 09:00 Atorvastatin Calcium (Lipitor) 40 mg HS PO Last administered on 10/16/19at 21:48; Start 10/16/19 at 21:00 Albuterol Sulfate (Ventolin Neb Soln) 2.5 mg PRN QID PRN NEB SHORTNESS OF BREATH; Start 10/16/19 at 00:15 Lansoprazole (Prevacid) 30 mg DAILYAC GT Last administered on 10/17/19at 09:46; Start 10/16/19 at 07:30 Magnesium Hydroxide (Milk Of Magnesia) 400 mg PRN DAILY PRN GT CONSTIPATION 3RD CHOICE; Start 10/16/19 at 00:00 Polyethylene Glycol (miraLAX PACKET) 17 gm PRN DAILY PRN GT CONSTIPATION 1ST CHOICE; Start 10/16/19 at 00:00 Scopolamine (Transderm-Scop) 1 patch Q3DAYS TD ; Start 10/18/19 at 09:00 Artificial Tears (Artificial Tears) 1 drop PRN Q4HRS PRN OU DRY EYE; Start 10/16/19 at 00:15 Citalopram Hydrobromide (CeleXA) 40 mg DAILY PO Last administered on 10/17/19at 09:56; Start 10/16/19 at 09:00 Glycopyrrolate (Robinul) 1 mg QHS PO Last administered on 10/16/19at 21:48; Start 10/16/19 at 21:00 Losartan Potassium (Cozaar) 100 mg PRN DAILY PRN PO SBP>160; Start 10/16/19 at 09:00 Non-Formulary Medication (Modafinil (Provigil)) 100 mg DAILY GT Last administered on 10/17/19at 09:46; Start 10/16/19 at 09:00 Psyllium Hydrophilic Mucilloid (Metamucil Fiber Packet) 1 pkt QHS PO Last administered on 10/16/19at 21:48; Start 10/16/19 at 21:00 Docusate Sodium (Colace Solution) 250 mg PRN BID PRN GT CONSTIPATION 2ND CHOICE; Start 10/16/19 at 09:00 Amoxicillin/ Clavulanate Potassium (Augmentin 400-57mg/5ml Susp) 5 ml Q12HR PEG ; Start 10/17/19 at 21:00 Active Scripts Active Keflex (Cephalexin) 500 Mg Capsule 1 Cap PO TID 10 Days Bactrim Ds Tablet (Sulfamethoxazole/Trimethoprim) 1 Each Tablet 1 Tab PO BID 10 Days Augmentin 250-62.5 Mg/5 Ml (Amoxicillin/Potassium Clav) 250 Mg/5 Ml Susp.recon 10 Ml PO BID 10 Days Konsyl (Psyllium Husk) 6 Gm Packet 6 Gm PO QHS 30 Days Polyethylene Glycol 3350 17 Gm Powd.pack 17 Gm GT PRN DAILY 30 Days Losartan Potassium 100 Mg Tablet 1 Tab PO PRN DAILY PRN 30 Days Reported Modafinil 100 Mg Tablet 100 Mg GT DAILY OK for pt to use home meds Glycopyrrolate 2 Mg Tablet 1 Mg PO HS Amlodipine Besylate 10 Mg Tablet 10 Mg PO DAILY Transderm-Scop (Scopolamine) 1 Each Patch.td72 1 Patch TP Q3DAYS Provigil (Modafinil) 100 Mg Tablet 100 Mg GT DAILY Prevacid (Lansoprazole) 30 Mg Tab.rap.dr 30 Mg DAILY Milk Of Magnesia (Magnesium Hydroxide) 400 Mg/5 Ml Oral.susp 400 Mg GT PRN DAILY PRN Lipitor (Atorvastatin Calcium) 40 Mg Tablet 40 Mg PO HS Lexapro (Escitalopram Oxalate) 20 Mg Tablet 20 Mg PO DAILY Duoneb 0.5 Mg-3 Mg/3 Ml Soln (Ipratropium/Albuterol Sulfate) 3 Ml Ampul.neb 3 Ml IH QIDPRN PRN [colace syrup] 25 Ml GT PRN BID PRN Aspirin 81 Mg Tab.chew 81 Mg PO DAILY Artificial Tears Drops (Dextran 70/Hypromellose/Pf) 1 Each Droperette 1 Each OU PRN Q4HRS PRN Vital Signs Vital Signs Date Time Temp Pulse Resp B/P (MAP) Pulse Ox O2 Delivery O2 Flow Rate FiO2 10/17/19 10:53 98.1 61 20 112/59 (76) 96 Room Air 98.1 Labs Laboratory Tests Test 10/15/19 14:10 Coronavirus (PCR) Not detected (Not Detected) Allergies Allergies Coded Allergies Type Severity Reaction Last Updated Verified No Known Drug Allergies 09/30/15 No Disposition/Orders: Other (d/c to SNF ) Justicifation of Admission Dx: Justifications for Admission: Justification of Admission Dx: N/A TRUDI HUANG MD Oct 17, 2019 13:07
[2019-10-17] MEDS ORDERED: AMOX400S PEG (13:10)
[2019-10-17] MEDS ORDERED: LACT1CAP6 PO (13:11)
--- NOTE | 2019-10-17 13:12 | SNU/HH DC ---
DISCHARGE ORDERS DISCHARGE INFORMATION: FINAL DIAGNOSIS Problems Medical Problems: (1) Aspiration pneumonia Status: Acute CONDITION ON DISCHARGE: Stable CODE STATUS: Code Status: Full LONGTERM: SNF STAY <30 DAYS: Yes HOSPICE: HOSPICE: No HOSPICE EVAL & TREAT: No LTAC: ADMIT TO LTAC: No POST DISCHARGE ORDERS: ACTIVITY ORDERS: Bedrest today WEIGHT BEARING STATUS: Non weight bearing DIET AFTER DISCHARGE: NPO WOUND/INCISION CARE: No wound care needed CHECKS AFTER DISCHARGE: CHECKS AFTER DISCHARGE: Check blood press - daily TREATMENT/EQUIPMENT ORDERS: ADAPTIVE EQUIPMENT NEEDED: None Physical Therapy For: Evalulation/Treatment Occupational Therapy For: Evaluation/Treatment Speech Language Pathology For: Evaluation/Treatment DISCHARGE MEDICATIONS: Home Meds Active Scripts Lactobacillus Acidophilus (PROBIOTIC) 1 Each Capsule, 1 CAP PO TID for SUPPLEMENT for 30 Days, #90 CAP 0 Refills Prov:TRUDI HUANG MD 10/17/19 Amoxicillin/Potassium Clav (AMOX TR-K CLV 400-57/5 SUSP) 400 Mg/5 Ml Susp.recon, 5 ML PEG Q12HR for PNEUMONIA for 14 Days, #400 MISC Prov:TRUDI HUANG MD 10/17/19 Psyllium Husk (KONSYL) 6 Gm Packet, 6 GM PO QHS for constipation for 30 Days, #30 PKT 11 Refills Prov:DENIA RENDON MD 11/29/18 Polyethylene Glycol 3350 (POLYETHYLENE GLYCOL 3350) 17 Gm Powd.pack, 17 GM GT PRN DAILY for constipation for 30 Days, #30 PKT 11 Refills Prov:DENIA RENDON MD 11/29/18 Losartan Potassium (LOSARTAN POTASSIUM) 100 Mg Tablet, 1 TAB PO PRN DAILY PRN for hypertension, SBP > 160mmHg for 30 Days, #30 TAB Prov:DENIA RENDON MD 11/29/18 Reported Medications Glycopyrrolate (GLYCOPYRROLATE) 2 Mg Tablet, 1 MG PO HS for secretions, TAB 06/10/19 Amlodipine Besylate (AMLODIPINE BESYLATE) 10 Mg Tablet, 10 MG PO DAILY for high bp 05/30/18 Scopolamine (TRANSDERM-SCOP) 1 Each Patch.td72, 1 PATCH TP Q3DAYS for secretions, #4 PATCH 03/01/18 Modafinil (PROVIGIL) 100 Mg Tablet, 100 MG GT DAILY 08/01/13 Lansoprazole (PREVACID) 30 Mg Tab.rap.dr, 30 MG DAILY 08/01/13 Magnesium Hydroxide (MILK OF MAGNESIA) 400 Mg/5 Ml Oral.susp, 400 MG GT PRN DAILY PRN for CONSTIPATION 08/01/13 Atorvastatin Calcium (LIPITOR) 40 Mg Tablet, 40 MG PO HS 08/01/13 Escitalopram Oxalate (LEXAPRO) 20 Mg Tablet, 20 MG PO DAILY 08/01/13 Ipratropium/Albuterol Sulfate (DUONEB 0.5 MG-3 MG/3 ML SOLN) 3 Ml Ampul.neb, 3 ML IH QIDPRN PRN for SHORTNESS OF BREATH 08/01/13 [colace syrup] No Conflict Check, 25 ML GT PRN BID PRN for CONSTIPATION 08/01/13 Aspirin (ASPIRIN) 81 Mg Tab.chew, 81 MG PO DAILY, TAB.CHEW 08/01/13 Dextran 70/Hypromellose/Pf (ARTIFICIAL TEARS DROPS) 1 Each Droperette, 1 EACH OU PRN Q4HRS PRN for DRY EYE 08/01/13 Discontinued Reported Medications Modafinil (MODAFINIL) 100 Mg Tablet, 100 MG GT DAILY for increase alertness, TAB OK for pt to use home meds 10/16/19 Discontinued Scripts Cephalexin (KEFLEX) 500 Mg Capsule, 1 CAP PO TID for 10 Days, #30 CAP 0 Refills Prov:DENIS NI APRN 09/06/19 Sulfamethoxazole/Trimethoprim (BACTRIM DS TABLET) 1 Each Tablet, 1 TAB PO BID for 10 Days, #20 TAB 0 Refills Prov:DENIS NI APRN 09/06/19 Amoxicillin/Potassium Clav (AUGMENTIN 250-62.5 MG/5 ML) 250 Mg/5 Ml Susp.recon, 10 ML PO BID for Pneumonia for 10 Days, #200 ML 0 Refills Prov:DENIA RENDON MD 06/12/19 TRUDI HUANG MD Oct 17, 2019 13:11
--- NOTE | 2019-10-17 13:16 | SNU/HH DC ---
DISCHARGE WITH HOME HEALTH DISCHARGE INFORMATION: Final Diagnosis: Problems Medical Problems: (1) Aspiration pneumonia Status: Acute Condition on Discharge: Stable CODE STATUS: Code Status: Full HOME HEALTH: Face to Face: I certify this patient is under my care and that I, or a nurse practitioner or physician's library services assistant working with me, had a face to face encounter that meets the physician face to face encounter requirements with this patient on []. Medical Complications: Pneumonia RN For Eval/Treatment: Yes Physical Therapy For: Evalulation/Treatment Occupational Therapy For: Evaluation/Treatment Speech Language Pathology For: Evaluation/Treatment Home Health Aide For: Self-care CONTENT ARCHITECT For: Community Resources Pt Meets Homebound Status: Unable to negotiate home POST DISCHARGE ORDERS: Activity Instructions for Disc: Bedrest today Weight Bearing Status after Di: Non weight bearing DIET AFTER DISCHARGE: NPO Wound/Incision Care: No wound care needed CHECKS AFTER DISCHARGE: Checks after discharge: Check blood press - daily TREATMENT/EQUIPMENT ORDERS: Adaptive Equipment Issued: None CERTIFICATION STATEMENT: Certification Statement: Certification Statement: Based on the above finding, I certify that this patient is confined to the home and needs intermittent prison care, physical therapy and/or speech therapy, or continues to need occupational therapy.~ This patient is under my care, and I have initiated the establishment of the plan of care.~ This patient will be followed by myself or a community physician who will periodically review the plan of care. Home Meds Active Scripts Lactobacillus Acidophilus (PROBIOTIC) 1 Each Capsule, 1 CAP PO TID for SUPPLEMENT for 30 Days, #90 CAP 0 Refills Prov:TRUDI HUANG MD 10/17/19 Amoxicillin/Potassium Clav (AMOX TR-K CLV 400-57/5 SUSP) 400 Mg/5 Ml Susp.recon, 5 ML PEG Q12HR for PNEUMONIA for 14 Days, #400 MISC Prov:TRUDI HUANG MD 10/17/19 Psyllium Husk (KONSYL) 6 Gm Packet, 6 GM PO QHS for constipation for 30 Days, #30 PKT 11 Refills Prov:DENIA RENDON MD 11/29/18 Polyethylene Glycol 3350 (POLYETHYLENE GLYCOL 3350) 17 Gm Powd.pack, 17 GM GT PRN DAILY for constipation for 30 Days, #30 PKT 11 Refills Prov:DENIA RENDON MD 11/29/18 Losartan Potassium (LOSARTAN POTASSIUM) 100 Mg Tablet, 1 TAB PO PRN DAILY PRN for hypertension, SBP > 160mmHg for 30 Days, #30 TAB Prov:DENIA RENDON MD 11/29/18 Reported Medications Glycopyrrolate (GLYCOPYRROLATE) 2 Mg Tablet, 1 MG PO HS for secretions, TAB 06/10/19 Amlodipine Besylate (AMLODIPINE BESYLATE) 10 Mg Tablet, 10 MG PO DAILY for high bp 05/30/18 Scopolamine (TRANSDERM-SCOP) 1 Each Patch.td72, 1 PATCH TP Q3DAYS for secretions, #4 PATCH 03/01/18 Modafinil (PROVIGIL) 100 Mg Tablet, 100 MG GT DAILY 08/01/13 Lansoprazole (PREVACID) 30 Mg Tab.rap.dr, 30 MG DAILY 08/01/13 Magnesium Hydroxide (MILK OF MAGNESIA) 400 Mg/5 Ml Oral.susp, 400 MG GT PRN DAILY PRN for CONSTIPATION 08/01/13 Atorvastatin Calcium (LIPITOR) 40 Mg Tablet, 40 MG PO HS 08/01/13 Escitalopram Oxalate (LEXAPRO) 20 Mg Tablet, 20 MG PO DAILY 08/01/13 Ipratropium/Albuterol Sulfate (DUONEB 0.5 MG-3 MG/3 ML SOLN) 3 Ml Ampul.neb, 3 ML IH QIDPRN PRN for SHORTNESS OF BREATH 08/01/13 [colace syrup] No Conflict Check, 25 ML GT PRN BID PRN for CONSTIPATION 08/01/13 Aspirin (ASPIRIN) 81 Mg Tab.chew, 81 MG PO DAILY, TAB.CHEW 08/01/13 Dextran 70/Hypromellose/Pf (ARTIFICIAL TEARS DROPS) 1 Each Droperette, 1 EACH OU PRN Q4HRS PRN for DRY EYE 08/01/13 Discontinued Reported Medications Modafinil (MODAFINIL) 100 Mg Tablet, 100 MG GT DAILY for increase alertness, TAB OK for pt to use home meds 10/16/19 Discontinued Scripts Cephalexin (KEFLEX) 500 Mg Capsule, 1 CAP PO TID for 10 Days, #30 CAP 0 Refills Prov:DENIS NI [employer] 09/06/19 Sulfamethoxazole/Trimethoprim (BACTRIM DS TABLET) 1 Each Tablet, 1 TAB PO BID for 10 Days, #20 TAB 0 Refills Prov:DENIS NI APRN 09/06/19 Amoxicillin/Potassium Clav (AUGMENTIN 250-62.5 MG/5 ML) 250 Mg/5 Ml Susp.recon, 10 ML PO BID for Pneumonia for 10 Days, #200 ML 0 Refills Prov:DENIA RENDON MD 06/12/19 TRUDI HUANG MD Oct 17, 2019 13:16
--- NOTE | 2019-10-17 14:34 | NUR ---
Condom catheter removed before discharge. Tolerated well.
--- NOTE | 2019-10-17 14:58 | NUR ---
Pt discharged home with self care. Discharge instructions and prescriptions discussed with pt mother Rosa. IV removed. Pt transferred to [facility] and was taken by EMS home.
[2019-10-17] MEDS ORDERED: AMOXICILLIN/CLAV 400MG/57MG 5 ML ORAL.SUSP. PEG SCH (21:00)
[2019-10-18] MEDS ORDERED: SCOPOLAMINE 1.5MG PATCH. TD SCH (09:00)
== END 2019-10-17 15:01 | disposition home or self-care (01) | DRG 177 ==
LOC: ER 08:00 → 6 SOUTH 11:40 → 4 NORTH 12:54
PROVIDERS: ADMIT Internal Medicine; ATTEND Internal Medicine
DX: J69.0 Pneumonitis due to inhalation of food and vomit (principal); G93.41 Metabolic encephalopathy; J98.11 Atelectasis; G91.9 Hydrocephalus, unspecified; K21.9 Gastro-esophageal reflux disease without esophagitis; E78.00 Pure hypercholesterolemia, unspecified; I10 Essential (primary) hypertension; Z20.828 Contact with and (suspected) exposure to other viral communicable diseases; E11.9 Type 2 diabetes mellitus without complications; E04.1 Nontoxic single thyroid nodule; R13.10 Dysphagia, unspecified; E78.5 Hyperlipidemia, unspecified; Z93.1 Gastrostomy status; Z98.2 Presence of cerebrospinal fluid drainage device; Z87.01 Personal history of pneumonia (recurrent); Z86.73 Personal history of transient ischemic attack (TIA), and cerebral infarction without residual deficits; Z83.3 Family history of diabetes mellitus
CPT/HCPCS: 36415; 70450; 71045; 71260; 80053; 81001; 83605; 83735; 85025; 87040; 87077; 87205; 93005; 96361; 96365; 99285; J2543; J7030; Q9967; G0378; U0003-CS

== ENCOUNTER 2019-11-02 07:05 | Emergency (ER) | payer OTHER ==
[~2019-11-02] VITALS: Ht 175.3 cm; Wt 86.0 kg
[~2019-11-02 07:05] MED LIST changes: +AMOX400S PEG; +LACT1CAP6 PO; +MODA100T2 GT
--- NOTE | 2019-11-02 07:22 | PHYS DOC ---
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 (emr reviewed-no seizure medications on recent admission), hypertension, diabetes and hydrocephaly, presents the ED from home with concern for "grimacing," family observed patient was concerned he was in pain. They checked his blood pressure which was approximately 130 over 80s. Family requested patient be checked out in the ED. EMR was reviewed and patient was discharged from the hospital on October 16 for aspiration pneumonia. Review of systems unable to be obtained due to history of stroke. PMH obtained from emr review. Allergies: Allergies: Allergies Coded Allergies Type Severity Reaction Last Updated Verified No Known Drug Allergies 09/30/15 No Physical Exam: PE: Constitutional: no acute distress, non-toxic appearance. [] HENT: Normocephalic, atraumatic, bilateral external ears normal, oropharynx moist, no tongue lacerations, nose normal. [] Eyes: PERRLA-3mm bl, EOMI, conjunctiva normal, no discharge. [] Neck: no tenderness, supple, no stridor. [] Cardiovascular:Heart rate regular rhythm, no murmur [] Lungs & Thorax: Bilateral breath sounds clear to auscultation [] Abdomen: Bowel sounds normal, soft, no tenderness, no masses, no pulsatile masses. [] G_tube in place Skin: Warm, dry, no erythema, no rash. [] Back: No tenderness, no CVA tenderness. [] Extremities: No tenderness, no cyanosis, no clubbing, LUE/LLE, no edema. [] RUE/RLE contracted, no shaking -no obvious seizure like activity Neurologic: Alert -nods head to voice/name, mute/no speech, slumped on left side Psychologic: Affect normal, mood normal. [] -Patient follows commands, sticks his tongue out when asked, when asked if he had any pain he shook his head no EKG: EKG: [] Radiology/Procedures: Radiology/Procedures: IMAGING REPORT Signed PATIENT: SHELLEY POLANCO ACCOUNT: [id number] : 1960 LOCATION: ER AGE: 59 SEX: M EXAM STATUS: PRE ER ORD. PHYSICIAN: DIPIKA STEIN DO REASON: grimacing PROCEDURE: CT HEAD WO CONTRAST EXAMINATION: CT HEAD WO CONTRAST CLINICAL HISTORY: Grimacing TECHNIQUE: Serial axial images without IV contrast were obtained from the vertex to the foramen magnum. CT Dose-Length Product (DLP): 2334.60 mGy*cm CT Dose Reduction Employed: One or more of the following individualized dose reduction techniques were utilized for this examination: 1. Automated exposure control 2. Adjustment of the mA and/or kV according to patient size 3. Use of iterative reconstruction technique. COMPARISON: 10/15/2019 FINDINGS: Post-operative change: Shunt tube remains in similar position entering the right frontal region and extending toward the third ventricle. Acute change: No evidence of an acute infarct or other acute parenchymal process. Hemorrhage: No evidence of acute intracranial hemorrhage. Mass Lesion / Mass Effect: There is no evidence of an intracranial mass or extraaxial fluid collection. No significant mass effect. Chronic change: Scattered patchy hypoattenuation in the supratentorial white matter with more confluent hypoattenuation in the frontal lobes, similar on prior study. Parenchyma: There is mild generalized volume loss. The brain parenchyma is otherwise within normal limits for age. Ventricles: The ventricles are within normal limits of size and configuration for age. Paranasal sinuses and skull base: Minimal ethmoid sinus disease, similar on prior study. Chronic calcification bilateral carotid siphons. The skull base and imaged soft tissues are unremarkable. IMPRESSION: No evidence of acute intracranial abnormality or significant interval change. Electronically signed by: Dylan Perez DO (11/02/2019 8:19 AM) [id number] DICTATED and SIGNED BY: DYLAN PEREZ DO DATE: 11/02/19 0819 IMAGING REPORT Signed PATIENT: SHELLEY POLANCO ACCOUNT: [id number] : 1960 LOCATION: ER AGE: 59 SEX: M EXAM STATUS: PRE ER ORD. PHYSICIAN: DIPIKA STEIN DO REASON: pain, PT UNRESPONSIVE PROCEDURE: CHEST AP ONLY AP chest. HISTORY: Patient unresponsive, pain AP view was taken of the chest. The heart is enlarged. There is a large calcified granuloma at the left hilum. There is a ventriculoperitoneal shunt tube. The right base consolidation noted on the CT from October 14 is poorly evaluated, there is elevation the right diaphragm. No new infiltrates are noted. There is no effusion. 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 IMPRESSION: 1. Elevated right diaphragm. 2. Cardiomegaly. 3. No new infiltrates. Electronically signed by: David Meredith MD (11/02/2019 8:10 AM) [id number] DICTATED and SIGNED BY: DAVID MEREDITH MD DATE: 11/02/19809 Course & Med Decision Making: Course & Med Decision Making Pertinent Labs and Imaging studies reviewed. (See chart for details) Patient presented to the ED with concern for being in pain. Patient was able to nod to myself and reported he was not in any pain. CT of the head with no acute process. Chest x-ray with no infiltrates. UA with no infection. Basic labs unremarkable with no leukocytosis. Patient's mother is at bedside reports patient shook his head yes this morning to having a headache (when asked) and pointed to his head. Patient was given ibuprofen before arrival. When patient arrived in the ED his eyes were open while in stretcher, no concern for headache upon ed presentation, shook his head no to having any pain or headache. Pt is calm and resting - does not move RUE/RLE, is moving LUE/LLE and is sleeping comfortably. Work-up has been unremarkable. Will DC home with PMD follow-up with strict ED return precautions for lethargy, confusion. Encouraged urgent outpatient follow-up with PMD. Life-threatening processes were considered but are low suspicion at this time, given history and physical exam. Pt was educated on all prescription medications and adverse effects. All patient's questions were answered and pt was stable at time of discharge. Differential includes meningitis, encephalitis, intracranial hemorrhage, obstructive hydrocephaly, CVA, carbon oxide poisoning, cerebral or cavernous venous thrombosis, hypertensive emergency, preeclampsia, giant cell arteritis, glaucoma, carotid or vertebral artery dissection, superior vena cava syndrome, infection, space-occupying lesions I spoken with the patient and her caregivers. I explained the patient's condition, diagnoses and treatment plan based on the information available to me at this time. I have answered the patient and her caregiver's questions and addressed any concerns. The patient and her caregivers have a good understanding of patient's diagnosis, condition and treatment plan as can be expected at this point. Vital signs have been stable. Patient's condition is stable and appropriate for discharge from the emergency department. Patient will pursue further outpatient evaluation with primary care physician or other designated or consulting physician as outlined in the discharge instructions. The patient and/or caregivers are agreeable to this plan of care and follow-up instructions have been explained in detail. The patient and/or caregivers have received these instructions in written form and have expressed an understanding of the discharge instructions. The patient and/or caregivers are aware that any significant change of condition or worsening of symptoms should prompt immediate return to this or the closest emergency department or call to 911. Costa Disclaimer: Costa Disclaimer: This electronic medical record was generated, in whole or in part, using a voice recognition dictation system. Departure Departure Impression: Primary Impression: Headache Disposition: 01 HOME, SELF-CARE Condition: STABLE Referrals: HERMINIO JACOBS (PCP) Patient Instructions: General Headache Without Cause Justicifation of Admission Dx: Justifications for Admission: Justification of Admission Dx: N/A DIPIKA STEIN DO Nov 02, 2019 07:22
[2019-11-02 07:50] LABS: BASO # 0.1 x10^3/uL (0.0-0.2); BASO % 1 % (0-3); EOS # 0.1 x10^3/uL (0.0-0.7); EOS % 2 % (0-3); HEMATOCRIT 45.2 % (39.0-53.0); LYMPH # 1.7 x10^3/uL (1.0-4.8); LYMPH % 35 % (24-48); MEAN CORPUSCULAR HEMOGLOBIN 30 pg (25-35); MEAN CORPUSCULAR HGB CONC 33 g/dL (31-37); MEAN CORPUSCULAR VOLUME 89 fL (79-100); MONO # 0.5 x10^3/uL (0.0-1.1); MONO % 11 % (0-9); NEUT # 2.6 x10^3/uL (1.8-7.7); NEUT % 52 % (31-73); PLATELET COUNT 228 x10^3/uL (140-400); RED BLOOD COUNT 5.06 x10^6/uL (4.30-5.70); RED CELL DISTRIBUTION WIDTH 14.6 % (11.5-14.5); WHITE BLOOD COUNT 4.9 x10^3/uL (4.0-11.0)
[2019-11-02 07:56] LABS: BILIRUBIN,URINE NEGATIVE (NEG); CLARITY,URINE CLEAR; COLOR,URINE YELLOW; NITRITE,URINE NEGATIVE (NEG); PH,URINE 8.5 (<5.0-8.0); PROTEIN,URINE NEGATIVE (NEG-TRACE)
[2019-11-02 08:07] LABS: CALCIUM 8.6 mg/dL (8.5-10.1); GFR 93.2; POTASSIUM 4.4 mmol/L (3.5-5.1)
[2019-11-02 08:12] LABS: ALBUMIN 3.2 g/dL (3.4-5.0); ALBUMIN/GLOBULIN RATIO 0.7 (1.0-1.7); TOTAL BILIRUBIN 0.5 mg/dL (0.2-1.0); TOTAL PROTEIN 7.5 g/dL (6.4-8.2)
--- NOTE | 2019-11-02 08:13 | RAD ---
AP chest. HISTORY: Patient unresponsive, pain AP view was taken of the chest. The heart is enlarged. There is a large calcified granuloma at the left hilum. There is a ventriculoperitoneal shunt tube. The right base consolidation noted on the CT from October 14 is poorly evaluated, there is elevation the right diaphragm. No new infiltrates are noted. There is no effusion. 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 IMPRESSION: 1. Elevated right diaphragm. 2. Cardiomegaly. 3. No new infiltrates. Electronically signed by: David Meredith MD (11/02/2019 8:10 AM) [id number]
--- NOTE | 2019-11-02 08:22 | RAD ---
EXAMINATION: CT HEAD WO CONTRAST CLINICAL HISTORY: Grimacing TECHNIQUE: Serial axial images without IV contrast were obtained from the vertex to the foramen magnum. CT Dose-Length Product (DLP): 2334.60 mGy*cm CT Dose Reduction Employed: One or more of the following individualized dose reduction techniques were utilized for this examination: 1. Automated exposure control 2. Adjustment of the mA and/or kV according to patient size 3. Use of iterative reconstruction technique. COMPARISON: 10/15/2019 FINDINGS: Post-operative change: Shunt tube remains in similar position entering the right frontal region and extending toward the third ventricle. Acute change: No evidence of an acute infarct or other acute parenchymal process. Hemorrhage: No evidence of acute intracranial hemorrhage. Mass Lesion / Mass Effect: There is no evidence of an intracranial mass or extraaxial fluid collection. No significant mass effect. Chronic change: Scattered patchy hypoattenuation in the supratentorial white matter with more confluent hypoattenuation in the frontal lobes, similar on prior study. Parenchyma: There is mild generalized volume loss. The brain parenchyma is otherwise within normal limits for age. Ventricles: The ventricles are within normal limits of size and configuration for age. Paranasal sinuses and skull base: Minimal ethmoid sinus disease, similar on prior study. Chronic calcification bilateral carotid siphons. The skull base and imaged soft tissues are unremarkable. IMPRESSION: No evidence of acute intracranial abnormality or significant interval change. Electronically signed by: Dylan Mahoney DO (11/02/2019 8:19 AM) [id number]
[2019-11-02 08:25] LABS: BACTERIA,URINE 0 /HPF (0-FEW); RBC,URINE 0 /HPF (0-2); SQUAMOUS EPITHELIAL CELL,UR FEW /LPF; WBC,URINE 0 /HPF (0-4)
[2019-11-02 11:10] VITALS: BP 95/72
== END 2019-11-02 11:20 | disposition home or self-care (01) ==
LOC: ER 07:05
DX: R51 Headache (principal); K21.9 Gastro-esophageal reflux disease without esophagitis; E78.00 Pure hypercholesterolemia, unspecified; I10 Essential (primary) hypertension; I25.2 Old myocardial infarction; Z98.890 Other specified postprocedural states; Z86.73 Personal history of transient ischemic attack (TIA), and cerebral infarction without residual deficits
CPT/HCPCS: 36415; 70450; 71045; 80053; 81001; 82550; 85025; 99285

== ENCOUNTER → 2019-11-24 | Outpatient (CLI) | payer OTHER ==
[2019-11-02 11:10] VITALS: BP 95/72
[~2019-11-24] MED LIST changes: +BARIUM SULFATE 40% (APPLE) 148 GM PWD. PO ONE
--- NOTE | 2019-11-24 12:06 | RAD ---
PROCEDURE: VIDEO SWALLOW STUDY STUDY DATE: 11/24/2019 CLINICAL INDICATION / HISTORY: Dysphagia requiring PEG. Remote CVA.. Puree and nectar thick liquid diet recommended 2015 by report. TECHNIQUE: Real-time fluoroscopic imaging examination was performed in conjunction with speech therapy. The patient was administered barium labeled thin liquids, nectar, honey, pudding, and solid consistency compounds. FLUOROSCOPY TIME: 4.1 minutes. Number of Images: 0 COMPARISON: Chest x-ray 11/02/2019 FINDINGS: Oral phase notable for reduced oral coordination and lingual movement which resulted in reduced bolus formation, posterior spillage into the pharynx, and oral residue.. During the pharyngeal phase of swallowing, delayed swallow initiation with pooling in the piriform sinuses was observed with moderate residual in the vallecula and piriform sinuses post swallow. Some residual was also observed along the posterior pharyngeal wall. A single episode of tracheal aspiration was observed during thin liquid ingestion by straw with a delayed cough. IMPRESSION: Dysphagia of the oral and pharyngeal phases. Tracheal aspiration with thin liquids by straw. Please refer to speech pathology notes for complete details and recommendations. Electronically signed by: Nydia Ash MD (11/24/2019 12:04 PM) [id number]
== END | disposition home or self-care (01) ==
LOC: RAD 09:39
PROVIDERS: ATTEND Family Medicine
DX: R13.10 Dysphagia, unspecified (principal)
CPT/HCPCS: 74230; 92611-GN

== ENCOUNTER 2020-05-10 12:10 | Inpatient (IN) | payer OTHER ==
[~2020-05-10] VITALS: Ht 182.9 cm; Wt 82.8 kg
[~2020-05-10 12:10] MED LIST changes: +AMLO-186 PO; +AMLO-187 PO; -AMLO10TA8 PO; -AMLO5TAB10 PO; +AMOX1TAB11 PO; +AMOX1TAB61 PO; +AZIT200S4 PO; -BARIUM SULFATE 40% (APPLE) 148 GM PWD. PO ONE; +CEFD300C PO; +LEVE500S9 PO; +LEVETIRACETAM PEG; -POLY17PO28 GT; +POLY17PO52 GT; +PRED-220 PO
--- NOTE | 2020-05-10 13:19 | RAD ---
INDICATION: Reason: L thigh swelling / Spl. Instructions: / History: COMPARISON: None. TECHNIQUE: Grayscale, color and doppler ultrasound images were obtained of the left lower extremity v enous vasculature. LEFT: No thrombus identified in the common femoral vein, femoral vein, popliteal vein or visualized calf ve ins. IMPRESSION: * No thrombus identified in deep venous system of the left lower extremity. * Leg edema. Electronically signed by: Dmoinick Sarmiento MD (05/10/2020 1:16 PM) [id number]
[2020-05-10 13:32] LABS: BASO # 0.1 x10^3/uL (0.0-0.2); BASO % 1 % (0-3); EOS # 0.1 x10^3/uL (0.0-0.7); EOS % 1 % (0-3); HEMATOCRIT 37.9 % (39.0-53.0); HEMOGLOBIN 12.4 g/dL (13.0-17.5); LYMPH # 1.3 x10^3/uL (1.0-4.8); LYMPH % 25 % (24-48); MEAN CORPUSCULAR HEMOGLOBIN 29 pg (25-35); MEAN CORPUSCULAR HGB CONC 33 g/dL (31-37); MEAN CORPUSCULAR VOLUME 89 fL (79-100); MONO # 0.4 x10^3/uL (0.0-1.1); MONO % 9 % (0-9); NEUT # 3.2 x10^3/uL (1.8-7.7); NEUT % 64 % (31-73); PLATELET COUNT 258 x10^3/uL (140-400); RED BLOOD COUNT 4.24 x10^6/uL (4.30-5.70); RED CELL DISTRIBUTION WIDTH 16.3 % (11.5-14.5); WHITE BLOOD COUNT 5.1 x10^3/uL (4.0-11.0)
[2020-05-10 13:45] LABS: CALCIUM 8.2 mg/dL (8.5-10.1); CREATININE 0.7 mg/dL (0.7-1.3); GFR 140.7; MAGNESIUM 1.9 mg/dL (1.8-2.4); POTASSIUM 3.6 mmol/L (3.5-5.1)
--- NOTE | 2020-05-10 13:48 | ED.ADGEN ---
Past Medical History Past Medical History: Constipation, CVA, GERD, High Cholesterol, Hypertension, Seizure, Other Additional Past Medical Histor: cerebvasc disease, resp failure, hydrocephalus, dysphagia,epilepsy Past Surgical History: Other Additional Past Surgical Histo: G-tube, neuro stimulator (BACLOFEN PUMP) Smoking Status: Never Smoker Alcohol Use: None Drug Use: None General Adult EDM: Chief Complaint: LOWER EXTREMITY SWELLING HPI: HPI: Patient is a 59 year old AA male, accompanied by his mother, with complaints of left thigh swelling since being discharged from an acute rehab facility on April 242020. Mother reports that the patient suffered a stroke several years ago and has limited speech and mobility since then. She denies any reported falls or trauma. She states that the patient complains of his left leg hurting. She has noticed that the left thigh is swollen and feels warm to touch. Patient's mother reports that no injury was ever reported to her. Mother states that the patient has had some sweats but denies any fever, cough, nausea, vomiting, diarrhea, rash, bruising, or altered LOC. Review of Systems: Review of Systems: Complete ROS is negative unless otherwise noted in HPI. Current Medications: Current Medications Medications (Trade) Dose Ordered Sig/Vin Start Time Stop Time Status Last Admin Dose Admin Info (CONTRAST GIVEN -- Rx MONITORING) 1 each PRN DAILY PRN 05/10/20 17:30 05/12/20 17:29 DC Iohexol (Omnipaque 300 Mg/ml) 75 ml 1X ONCE 05/10/20 17:30 05/10/20 17:31 DC 05/10/20 17:58 75 ML Allergies: Allergies: Allergies Coded Allergies Type Severity Reaction Last Updated Verified No Known Drug Allergies 09/30/15 No Physical Exam: PE: See Above Constitutional: Well developed, well nourished, no acute distress, non-toxic appearance. [] HENT: Normocephalic, atraumatic, bilateral external ears normal, nose normal. [] Eyes: Conjunctive are normal, no discharge. [] Neck: Normal range of motion, no stridor. [] Cardiovascular:Heart rate regular rhythm Lungs & Thorax: Respirations even and unlabored, no retractions, no respiratory distress Abdomen: soft, no tenderness Skin: Warm, dry, no erythema, no rash; bandaged wounds present to right foot. [] Extremities: Left thigh: Cap refill less than 2 seconds, no crepitus, no obvious deformity, no cyanosis, 2+ edema Neurologic: Alert and oriented normal for patient, contractures of upper extremities noted, incomprehensible moaning Psychologic: Affect normal, judgement normal, mood normal. [] Current Patient Data: Labs: Laboratory Tests Test 05/10/20 13:15 White Blood Count 5.1 x10^3/uL (4.0-11.0) Red Blood Count 4.24 x10^6/uL (4.30-5.70) L Hemoglobin 12.4 g/dL (13.0-17.5) L Hematocrit 37.9 % (39.0-53.0) L Mean Corpuscular Volume 89 fL (79-100) Mean Corpuscular Hemoglobin 29 pg (25-35) Mean Corpuscular Hemoglobin Concent 33 g/dL (31-37) Red Cell Distribution Width 16.3 % (11.5-14.5) H Platelet Count 258 x10^3/uL (140-400) Neutrophils (%) (Auto) 64 % (31-73) Lymphocytes (%) (Auto) 25 % (24-48) Monocytes (%) (Auto) 9 % (0-9) Eosinophils (%) (Auto) 1 % (0-3) Basophils (%) (Auto) 1 % (0-3) Neutrophils # (Auto) 3.2 x10^3/uL (1.8-7.7) Lymphocytes # (Auto) 1.3 x10^3/uL (1.0-4.8) Monocytes # (Auto) 0.4 x10^3/uL (0.0-1.1) Eosinophils # (Auto) 0.1 x10^3/uL (0.0-0.7) Basophils # (Auto) 0.1 x10^3/uL (0.0-0.2) Sodium Level 141 mmol/L (136-145) Potassium Level 3.6 mmol/L (3.5-5.1) Chloride Level 103 mmol/L (98-107) Carbon Dioxide Level 32 mmol/L (21-32) Anion Gap 6 (6-14) Blood Urea Nitrogen 10 mg/dL (8-26) Creatinine 0.7 mg/dL (0.7-1.3) Estimated GFR (Cockcroft-Gault) 140.7 Glucose Level 82 mg/dL (70-99) Calcium Level 8.2 mg/dL (8.5-10.1) L Magnesium Level 1.9 mg/dL (1.8-2.4) Laboratory Tests 05/10/20 13:15 Laboratory Tests 05/10/20 13:15 Vital Signs: Vital Signs Date Time Temp Pulse Resp B/P (MAP) Pulse Ox O2 Delivery O2 Flow Rate FiO2 05/10/20 18:30 68 106/80 (89) 95 Room Air 05/10/20 14:30 18 05/10/20 12:33 98.0 98.0 EKG: EKG: [] Heart Score: Risk Factors: Risk Factors: DM, Current or recent (<one month) smoker, HTN, HLP, family history of CAD, obesity. Risk Scores: Score 0 - 3: 2.5% MACE over next 6 weeks - Discharge Home Score 4 - 6: 20.3% MACE over next 6 weeks - Admit for Clinical Observation Score 7 - 10: 72.7% MACE over next 6 weeks - Early Invasive Strategies Radiology/Procedures: Radiology/Procedures: PROCEDURE: VENOUS LOWER EXTREMITY LEFT INDICATION: Reason: L thigh swelling / Spl. Instructions: / History: COMPARISON: None. TECHNIQUE: Grayscale, color and doppler ultrasound images were obtained of the left lower extremity venous vasculature. LEFT: No thrombus identified in the common femoral vein, femoral vein, popliteal vein or visualized calf veins. IMPRESSION: * No thrombus identified in deep venous system of the left lower extremity. * Leg edema. Electronically signed by: Dominick Sarmiento MD (05/10/2020 1:16 PM) DESKTOP- [id number][] PROCEDURE: HIP LEFT 2V WITH PELVIS XR BILATERAL HIP (WITH OR WITHOUT PELVIS) LEFT 2 VIEWS History: Reason: left thigh swelling, please include entire femur / Spl. Instructions: / History: Comparison: CT abdomen and pelvis 02/04/2020. Technique: AP pelvis, coned-down AP and frog-leg lateral views of the left hip. Findings: Normal left hip alignment without evidence of fracture or dislocation. Moderate bilateral hip degenerative changes. The pubic rami are intact. Fusion across the pubic symphysis. Diffuse soft tissue swelling. Impression: 1. Degenerative changes without acute fracture of the left hip. PROCEDURE: KNEE LEFT 2V XR KNEE_LT 1-2 VIEWS History: Reason: left thigh swelling, please include entire femur / Spl. Instructions: / History: Comparison: None. Technique: AP and lateral views of the left knee. Findings: Decreased osseous mineralization. There is no evidence for fracture. Alignment is normal. No destructive osseous lesions are seen. Degenerative changes at the knee with medial compartment narrowing and patellofemoral osteophytes. Infrapatellar ossifications probably within the patellar tendon. Trace suprapatellar effusion. Diffuse soft tissue swelling. Impression: 1. Degenerative changes and soft tissue swelling without acute osseous abnormality of the left knee. PROCEDURE: DUPLEX LOWER EXT ARTERIAL LEFT Exam: Ultrasound left arterial duplex Indication: Left eye swelling, history of stent Technique: Real-time grayscale and color Doppler images of the left lower extremity were obtained by the department dye range feeder. Comparisons: None FINDINGS: Peak systolic velocities as follows: COORDINATE MEASURING MACHINE TECHNICIAN: 74 DFA: 80 Proximal SFA: 83 Mid SFA 114 Distal SFA: 113 Popliteal: 64 PATENT COUNSEL proximal: 56 PATENT COUNSEL distal: 44 Peroneal: 43 DWAYNE: 102 DPA: 36 IMPRESSION: Patent left lower extremity arterial vasculature without flow-limiting stenosis identified. PROCEDURE: CT ABD PELV W/ IV CONTRST ONLY Exam: CT of abdomen and pelvis with contrast INDICATION: Left eye swelling, CT venogram TECHNIQUE: Sequential axial images through the abdomen and pelvis obtained following the administration of 75 mL of Omni 300 IV contrast. Sagittal and coronal reformatted images were reconstructed from the axial data and reviewed. Comparisons: 02/04/2020 FINDINGS: Heart size is normal. No pericardial. Patchy airspace disease at the lung bases bilaterally greater on the right. No pleural effusion. Liver, spleen, pancreas, gallbladder and adrenals are unremarkable. No perinephric inflammation or hydronephrosis. No renal or ureteral calculi are identified. Bladder is decompressed not well evaluated. Barajas balloon is noted in the bladder. Prostate is not enlarged. Large amount stool noted throughout the colon. Small bowel is unremarkable. There is a percutaneous gastrostomy tube with balloon in the stomach. No free intra-abdominal air or fluid. No obstruction. Abdominal aorta has a normal course and caliber. Abdominal vasculature is patent. No enlarged intra-abdominal lymph nodes are identified. There is a intramuscular hematoma involving the anterior musculature of the left thigh. No suspicious osseous lesions or acute fractures. IMPRESSION: 1. Intramuscular hematoma involving the anterior musculature of the left thigh measuring approximately 9 x 5 cm. No underlying osseous abnormality. 2. Moderate amount stool noted in the colon, correlate for constipation. 3. Patchy airspace disease at the lungs bilaterally greater on the right may be infectious or inflammatory in etiology. Exposure: One or more of the following in the visualized dose reduction techniques were utilized for this examination: 1. Automated exposure control 2. Adjustment of the MA and/or KV according to patient size 3. Use of iterative of reconstructive technique Course & Med Decision Making: Course & Med Decision Making Pertinent Labs and Imaging studies reviewed. (See chart for details) 1849-[id number] spoke with Dr. Cheek about the CT results, he will speak to the radiologist as he sees a possible abnormality on the patient's femur. He recommends that patient have a compression bandage, ice, and elevation. 1907-spoke with Dr. Ho who is the admitting physician, and care was assumed following discussion of patient. Will admit patient for intractable left leg pain, and left thigh hematoma. I advised him that I had spoke with Dr. Cheek about the patient and will place orthopedic consult Patient's vital signs stable. Patient remains afebrile, appears nontoxic, respirations even and unlabored. Patient will be admitted to the medical/surgical floor. Patient's case and plan of care also discussed with Dr. Alta Skelton Disclaimer: [place] Disclaimer: This electronic medical record was generated, in whole or in part, using a voice recognition dictation system. Departure Departure Impression: Primary Impression: Intractable pain Additional Impression: Hematoma of left thigh Disposition: ADMITTED INPT THIS HOSP Admitting Physician: ANA MARIA (REINA) Condition: STABLE Referrals: HERMINIO JACOBS (PCP) Attending Signature Attending Signature I have reviewed the PA/CALL CENTER TRAINER's note and plan of care. I was available for consulta tion as needed during the patient's visit in the emergency department. I agree with the clinical impression, plan, and disposition. Problem Qualifiers Additional Impression: Hematoma of left thigh Encounter type: initial encounter Qualified Codes: S70.12XA - Contusion of left thigh, initial encounter TYRELL OLIVEIRA APRN May 10, 2020 13:48 ROB COON DO May 13, 2020 08:55
--- NOTE | 2020-05-10 14:51 | RAD ---
XR BILATERAL HIP (WITH OR WITHOUT PELVIS) LEFT 2 VIEWS History: Reason: left thigh swelling, please include entire femur / Spl. Instructions: / History: Comparison: CT abdomen and pelvis 02/04/2020. Technique: AP pelvis, coned-down AP and frog-leg lateral views of the left hip. Findings: Normal left hip alignment without evidence of fracture or dislocation. Moderate bilateral hip degener ative changes. The pubic rami are intact. Fusion across the pubic symphysis. Diffuse soft tissue swel ling. Impression: 1. Degenerative changes without acute fracture of the left hip. Electronically signed by: Scottie Rain MD (05/10/2020 2:49 PM) [facility]
--- NOTE | 2020-05-10 14:53 | RAD ---
XR KNEE_LT 1-2 VIEWS History: Reason: left thigh swelling, please include entire femur / Spl. Instructions: / History: Comparison: None. Technique: AP and lateral views of the left knee. Findings: Decreased osseous mineralization. There is no evidence for fracture. Alignment is normal. No destructive osseous lesions are seen. Degenerative changes at the knee with medial compartment narrowing and patellofemoral osteophytes. Infrapatellar ossifications probably within the patellar tendon. Trace suprapatellar effusion. Diffuse soft tissue swelling. Impression: 1. Degenerative changes and soft tissue swelling without acute osseous abnormality of the left knee. Electronically signed by: Scottie Rain MD (05/10/2020 2:51 PM) [facility]
--- NOTE | 2020-05-10 16:47 | RAD ---
Exam: Ultrasound left arterial duplex Indication: Left eye swelling, history of stent Technique: Real-time grayscale and color Doppler images of the left lower extremity were obtained by the department carding machine feeder. Comparisons: None FINDINGS: Peak systolic velocities as follows: MORTGAGE ADVISOR: 74 DFA: 80 Proximal SFA: 83 Mid SFA 114 Distal SFA: 113 Popliteal: 64 SENIOR CLINICAL CONSULTANT proximal: 56 SENIOR CLINICAL CONSULTANT distal: 44 Peroneal: 43 DWAYNE: 102 DPA: 36 IMPRESSION: Patent left lower extremity arterial vasculature without flow-limiting stenosis identified. Electronically signed by: Lorenzo Tom MD (05/10/2020 4:44 PM) [facility]
[2020-05-10] MEDS ORDERED: CONTRAST GIVEN. MC PRN (17:30)
[2020-05-10] MEDS ORDERED: IOHEXOL 300 MG/ML 100ML VIAL. IV ONE (17:30)
--- NOTE | 2020-05-10 18:28 | RAD ---
ADDENDUM #1 ADDENDUM: After reviewing with second radiologist differential consideration for the underlying periosteal calc ification at the left distal femoral diaphysis is myositis ossificans which is favored. There is a sm all possibility of a surface osteosarcoma. Follow-up imaging in 6 weeks to reassess for stability is recommended. FOR INTERNAL CODING PURPOSES Critical result: Findings discussed with Susanne Aguirre at 05/10/2020 7:23 PM. RESULT CODE: (C) Electronically signed by: Lorenzo Tom MD (05/10/2020 7:26 PM) [facility] ORIGINAL REPORT Exam: CT of abdomen and pelvis with contrast INDICATION: Left eye swelling, CT venogram TECHNIQUE: Sequential axial images through the abdomen and pelvis obtained following the administrati on of 75 mL of Omni 300 IV contrast. Sagittal and coronal reformatted images were reconstructed from the axial data and reviewed. Comparisons: 02/04/2020 FINDINGS: Heart size is normal. No pericardial. Patchy airspace disease at the lung bases bilaterally greater o n the right. No pleural effusion. Liver, spleen, pancreas, gallbladder and adrenals are unremarkable. No perinephric inflammation or hydronephrosis. No renal or ureteral calculi are identified. Bladder is decompressed not well evaluated. Barajas balloon is noted in the bladder. Prostate is not en larged. Large amount stool noted throughout the colon. Small bowel is unremarkable. There is a percutaneous g astrostomy tube with balloon in the stomach. No free intra-abdominal air or fluid. No obstruction. Abdominal aorta has a normal course and caliber. Abdominal vasculature is patent. No enlarged intra-abdominal lymph nodes are identified. There is a intramuscular hematoma involving the anterior musculature of the left thigh. No suspicious osseous lesions or acute fractures. IMPRESSION: 1. Intramuscular hematoma involving the anterior musculature of the left thigh measuring approximate ly 9 x 5 cm. No underlying osseous abnormality. 2. Moderate amount stool noted in the colon, correlate for constipation. 3. Patchy airspace disease at the lungs bilaterally greater on the right may be infectious or inflam matory in etiology. Exposure: One or more of the following in the visualized dose reduction techniques were utilized for this examination: 1. Automated exposure control 2. Adjustment of the MA and/or KV according to patient size 3. Use of iterative of reconstructive technique Electronically signed by: Lorenzo Tom MD (05/10/2020 6:26 PM) [facility]
[2020-05-10 20:25] VITALS: BP 106/77
--- NOTE | 2020-05-10 21:00 | NUR ---
This RN attempted to call pt.'s mother, who is also his scientist immunology but no one picked up the call. Voicemail was left. RN will attempt again in the morning.
--- NOTE | 2020-05-10 22:02 | NUR ---
Pt. arrived on unit at 2024 by bed from ED. Pt. is alert but only alert to his name. Pt. is also non-verbal. Call light is within reach and bed in lowest locked position. Will continue to monitor.
[2020-05-10 23:00] VITALS: BP 102/71
[2020-05-11 03:00] VITALS: BP 106/80
[2020-05-11 07:00] VITALS: BP 121/79
--- NOTE | 2020-05-11 07:22 | NUR ---
Pt.'s mother was called again this morning. Home medications were verified with her. patient passcode was also given to her. She states she will be be at the hospital later on today. Will continue to monitor patient.
--- NOTE | 2020-05-11 07:43 | NUR ---
Pt.'s mother does not want any vaccinations given to pt. Addendum: 05/11/20 at 0743 by BRIDGET GUZMAN RN Amended: Links added.
--- NOTE | 2020-05-11 07:43 | NUR ---
Pt. was covid + in February as stated by pt.'s mother. Pt.'s left leg is wrapped in leandro bandage per this RN.
[2020-05-11] MEDS ORDERED: SENNOSIDES 8.6 MG TABLET PO PRN (08:00)
[2020-05-11] MEDS ORDERED: ACETAMINOPHEN 325 MG TABLET. PO PRN (08:00)
[2020-05-11] MEDS ORDERED: DEXTROSE 50% 25 GM / 50ML DISP.SYRIN. IV PRN (08:00)
[2020-05-11] MEDS ORDERED: ONDANSETRON PF 4 MG/2 ML VIAL. IVP PRN (08:00)
[2020-05-11] MEDS ORDERED: DOCUSATE SODIUM 100 MG CAPSULE. PO PRN (08:00)
--- NOTE | 2020-05-11 08:00 | PDOC1 ---
History and Physical Date of Service: DOS: DATE: 05/11/20 TIME: 07:54 Chief Complaint: Chief Complain: Left leg swelling History of Present Illness: HPI: 59 year old AA male, accompanied by his mother, with complaints of left thigh swelling since being discharged from an acute rehab facility on April 242020. Mother reports that the patient suffered a stroke several years ago and has limited speech and mobility since then. She denies any reported falls or trauma. She states that the patient complains of his left leg hurting. She has noticed that the left thigh is swollen and feels warm to touch. Patient's mother reports that no injury was ever reported to her. Mother states that the patient has had some sweats but denies any fever, cough, nausea, vomiting, diar lyly, rash, bruising, or altered LOC. Past Medical/Surgical History: PMH/PSH: Past Medical History: Constipation, CVA, GERD, High Cholesterol, Hypertension, Seizure, cerebvasc disease, resp failure, hydrocephalus, dysphagia,epilepsy Past Surgical History: G-tube, neuro stimulator (BACLOFEN PUMP) Allergies: Allergies: Coded Allergies: No Known Drug Allergies (Unverified , 09/30/15) Family History: Family History: Reviewed with no relevant findings Social History: Social History: Smoking Status: Never Smoker Alcohol Use: None Drug Use: None Current Medications: Current Medications Current Medications Iohexol (Omnipaque 300 Mg/ml) 75 ml 1X ONCE IV Last administered on 05/10/20at 17:58; Start 05/10/20 at 17:30; Stop 05/10/20 at 17:31; Status DC Info (CONTRAST GIVEN -- Rx MONITORING) 1 each PRN DAILY PRN MC SEE COMMENTS; Start 05/10/20 at 17:30; Stop 05/12/20 at 17:29 Sodium Chloride 1,000 ml @ 70 mls/hr [id number] IV ; Start 05/11/20 at 08:00 Active Scripts Active Konsyl (Psyllium Husk) 6 Gm Packet 6 Gm PO QHS 30 Days Polyethylene Glycol 3350 17 Gm Powd.pack 17 Gm GT PRN DAILY 30 Days Losartan Potassium 100 Mg Tablet 1 Tab PO PRN DAILY PRN 30 Days Reported Levetiracetam 500 Mg/5 Ml Solution 500 Mg PO BID 30 Days Glycopyrrolate 2 Mg Tablet 1 Mg PO HS Amlodipine Besylate 10 Mg Tablet 10 Mg PO DAILY Transderm-Scop (Scopolamine) 1 Each Patch.td72 1 Patch TP Q3DAYS Provigil (Modafinil) 100 Mg Tablet 100 Mg GT DAILY Prevacid (Lansoprazole) 30 Mg Tab.rap.dr 30 Mg DAILY Milk Of Magnesia (Magnesium Hydroxide) 400 Mg/5 Ml Oral.susp 400 Mg GT PRN DAILY PRN Lipitor (Atorvastatin Calcium) 40 Mg Tablet 40 Mg PO HS Lexapro (Escitalopram Oxalate) 20 Mg Tablet 20 Mg PO DAILY Duoneb 0.5 Mg-3 Mg/3 Ml Soln (Ipratropium/Albuterol Sulfate) 3 Ml Ampul.neb 3 Ml IH QIDPRN PRN [colace syrup] 25 Ml GT PRN BID PRN Aspirin 81 Mg Tab.chew 81 Mg PO DAILY Artificial Tears Drops (Dextran 70/Hypromellose/Pf) 1 Each Droperette 1 Each OU PRN Q4HRS PRN ROS: Review of Systems Review of System REVIEW OF SYSTEMS: GENERAL: Denies weakness SKIN: No bruising, hair changes or rashes. EYES: No blurred, double or loss of vision. NOSE AND THROAT: No history of nosebleeds, hoarseness or sore throat. HEART: No history of palpitations, chest pain or shortness of breath on exertion. LUNGS: Denies cough, hemoptysis, wheezing or shortness of breath. GASTROINTESTINAL: Denies changes in appetite, nausea, vomiting, diarrhea or constipation. GENITOURINARY: No history of frequency, urgency, hesitancy or nocturia. NEUROLOGIC: Denies history of numbness, tingling, or tremor. PSYCHIATRIC: No history of panic, anxiety or depression. ENDOCRINE: No history of heat or cold intolerance, polyuria or polydipsia. EXTREMITIES: Denies joint pain, pain on walking or stiffness. Physical Exam: Vital Signs: Vital Signs Date Time Temp Pulse Resp B/P (MAP) Pulse Ox O2 Delivery O2 Flow Rate FiO2 05/11/20 03:00 80 16 106/80 (89) 94 Room Air 05/10/20 23:00 97.6 97.6 Physcial Exam: GEN: No apparent distress. Alert and oriented HEENT: Normal cephalic, atraumatic, external auditory canals are patent EYES: Extraocular muscles are intact, pupil are equally round and reactive to light and accommodation MUSCULOSKELETAL: Well developed , well nourished, good range of motion ENDOCRINE: No thyromegaly was palpated LYMPHATICS: No cervical chain or axillary nodes were noted HEMATOPOIETIC: No bruising NECK: Supple, no JVD, no thyromegaly was noted LUNGS: Clear to auscultation in all lung danielle without rhonchi or wheezing HEART: RRR, S!, S2 present. Peripheral pulses intact, no obvious murmurs noted ABDOMEN: Soft, nontender. Positive bowel sounds, no organomegaly, normal bowel sounds EXTREMITIES: Soft compartments. Left thigh swelling due to hematoma. Palpable pulses and warm extremity. Tender to palpation. NEUROLOGIC: Normal speech and tone. A&O x 3, moves all extremities, no obvious focal deficits PSYCHIATRIC: Normal affect, normal mood. Stable SKIN: No ulcerations or rashes, good skin turgor, no jaundice VASCULAR: Good capillary refill, neurovascular bundle appears to be intact Labs: Labs: Laboratory Tests Test 05/10/20 13:15 White Blood Count 5.1 x10^3/uL (4.0-11.0) Red Blood Count 4.24 x10^6/uL (4.30-5.70) Hemoglobin 12.4 g/dL (13.0-17.5) Hematocrit 37.9 % (39.0-53.0) Mean Corpuscular Volume 89 fL (79-100) Mean Corpuscular Hemoglobin 29 pg (25-35) Mean Corpuscular Hemoglobin Concent 33 g/dL (31-37) Red Cell Distribution Width 16.3 % (11.5-14.5) Platelet Count 258 x10^3/uL (140-400) Neutrophils (%) (Auto) 64 % (31-73) Lymphocytes (%) (Auto) 25 % (24-48) Monocytes (%) (Auto) 9 % (0-9) Eosinophils (%) (Auto) 1 % (0-3) Basophils (%) (Auto) 1 % (0-3) Neutrophils # (Auto) 3.2 x10^3/uL (1.8-7.7) Lymphocytes # (Auto) 1.3 x10^3/uL (1.0-4.8) Monocytes # (Auto) 0.4 x10^3/uL (0.0-1.1) Eosinophils # (Auto) 0.1 x10^3/uL (0.0-0.7) Basophils # (Auto) 0.1 x10^3/uL (0.0-0.2) Sodium Level 141 mmol/L (136-145) Potassium Level 3.6 mmol/L (3.5-5.1) Chloride Level 103 mmol/L (98-107) Carbon Dioxide Level 32 mmol/L (21-32) Anion Gap 6 (6-14) Blood Urea Nitrogen 10 mg/dL (8-26) Creatinine 0.7 mg/dL (0.7-1.3) Estimated GFR (Cockcroft-Gault) 140.7 Glucose Level 82 mg/dL (70-99) Calcium Level 8.2 mg/dL (8.5-10.1) Magnesium Level 1.9 mg/dL (1.8-2.4) Laboratory Tests Test 05/10/20 13:15 White Blood Count 5.1 x10^3/uL (4.0-11.0) Red Blood Count 4.24 x10^6/uL (4.30-5.70) Hemoglobin 12.4 g/dL (13.0-17.5) Hematocrit 37.9 % (39.0-53.0) Mean Corpuscular Volume 89 fL (79-100) Mean Corpuscular Hemoglobin 29 pg (25-35) Mean Corpuscular Hemoglobin Concent 33 g/dL (31-37) Red Cell Distribution Width 16.3 % (11.5-14.5) Platelet Count 258 x10^3/uL (140-400) Neutrophils (%) (Auto) 64 % (31-73) Lymphocytes (%) (Auto) 25 % (24-48) Monocytes (%) (Auto) 9 % (0-9) Eosinophils (%) (Auto) 1 % (0-3) Basophils (%) (Auto) 1 % (0-3) Neutrophils # (Auto) 3.2 x10^3/uL (1.8-7.7) Lymphocytes # (Auto) 1.3 x10^3/uL (1.0-4.8) Monocytes # (Auto) 0.4 x10^3/uL (0.0-1.1) Eosinophils # (Auto) 0.1 x10^3/uL (0.0-0.7) Basophils # (Auto) 0.1 x10^3/uL (0.0-0.2) Sodium Level 141 mmol/L (136-145) Potassium Level 3.6 mmol/L (3.5-5.1) Chloride Level 103 mmol/L (98-107) Carbon Dioxide Level 32 mmol/L (21-32) Anion Gap 6 (6-14) Blood Urea Nitrogen 10 mg/dL (8-26) Creatinine 0.7 mg/dL (0.7-1.3) Estimated GFR (Cockcroft-Gault) 140.7 Glucose Level 82 mg/dL (70-99) Calcium Level 8.2 mg/dL (8.5-10.1) Magnesium Level 1.9 mg/dL (1.8-2.4) Images: Images CT ABD/PELVIS IMPRESSION: 1. Intramuscular hematoma involving the anterior musculature of the left thigh measuring approximately 9 x 5 cm. No underlying osseous abnormality. 2. Moderate amount stool noted in the colon, correlate for constipation. 3. Patchy airspace disease at the lungs bilaterally greater on the right may be infectious or inflammatory in etiology. LE US IMPRESSION: * No thrombus identified in deep venous system of the left lower extremity. * Leg edema. Assessment/Plan Assessment/Plan Left thigh intramuscular hematoma Constipation History of CVA with residual weakness PEG tube Bedbound status Debilitation Admit to medicine for further management Orthopedic consult Every 2 hours neurovascular checks PT OT Nutrition consult for tube feedings MiraLAX every 6 hours until bowel movement. Lovenox for DVT prophylaxis Protonix GI prophylaxis ADA diet Full code Discussed with RN and SW Disposition inpatient management as above Surrogate decision maker is the [facility] Justifications for Admission Other Justification Respiratory failure with hypoxia, COVID-19 ANTON VALENZUELA MD May 11, 2020 08:00
[2020-05-11 11:00] VITALS: BP 114/76
[2020-05-11] MEDS: IV NORMAL SALINE 1000ML BAG 1,000 ML IV SCH (11:09)
[2020-05-11] MEDS ORDERED: POLYETHYLENE GLYCOL 3350 17 GM PACKET. PO SCH (12:00)
[2020-05-11] MEDS ORDERED: LOSARTAN POTASSIUM 50 MG TABLET. PO PRN (12:15)
[2020-05-11] MEDS ORDERED: POLYVINYL ALCOHOL 1.4% OPHTH SOLUTION 15ML BOTTLE. OU PRN (12:15)
--- NOTE | 2020-05-11 13:04 | PDOC2 ---
CONSULT Date of Consult Date of Consult DATE: 05/11/20 TIME: 13:01 Reason for Consult Reason for Consult: Left thigh swelling Identification/Chief Complaint Chief Complaint Left thigh swelling Source Source: Caregiver, Chart review History of Present Illness Reason for Visit: This 59-year-old man was admitted to the hospital with left thigh swelling. He is unable to give a history due to a prior stroke and is essentially aphasic and is also nonambulatory. He had a stroke I believe in the early , after which he went to [facility] rehab and learn some exercises. His mother was in the room and seems to be one of his primary caregivers. Apparently his mother and several other family members were very sick with COVID-19, and when they were hospitalized the patient was transferred without their knowledge to some sort of facility in [facility]. He is since back from [place], but they felt like his care may have not been very good there as he started to develop some ulcerations on his feet. They noticed that his thigh is swollen, and has been so for about a week and he was brought to the hospital for evaluation. The patient was not able to give any history and was completely asleep during the exam even when I palpated his thigh and knee. Past Medical History Cardiovascular: HTN, Hyperlipidemia Pulmonary: Pneumonia CENTRAL NERVOUS SYSTEM: CVA GI: Constipation, GERD, Other Musculoskeletal: Other Renal/: Urinary Incontinence Past Surgical History Past Surgical History: Other Family History Family History: Hypertension Social History ALCOHOL: none Drugs: None, Other Lives: with Family Current Problem List Problem List Problems Medical Problems: (1) Hematoma of left thigh Status: Acute (2) Intractable pain Status: Acute Current Medications Current Medications Current Medications Iohexol (Omnipaque 300 Mg/ml) 75 ml 1X ONCE IV Last administered on 05/10/20at 17:58; Start 05/10/20 at 17:30; Stop 05/10/20 at 17:31; Status DC Info (CONTRAST GIVEN -- Rx MONITORING) 1 each PRN DAILY PRN MC SEE COMMENTS; Start 05/10/20 at 17:30; Stop 05/12/20 at 17:29 Sodium Chloride 1,000 ml @ 70 mls/hr [id number] IV Last administered on 05/11/20at 11:09; Start 05/11/20 at 08:00 Sennosides (Senna) 17.2 mg PRN BID PRN PO CONSTIPATION; Start 05/11/20 at 08:00 Docusate Sodium (Colace) 100 mg PRN DAILY PRN PO HARD STOOLS; Start 05/11/20 at 08:00 Ondansetron HCl (Zofran) 4 mg PRN Q6HRS PRN IVP NAUSEA/VOMITING; Start 05/11/20 at 08:00 Dextrose (Dextrose 50%-Water Syringe) 12.5 gm PRN Q15MIN PRN IV SEE COMMENTS; Start 05/11/20 at 08:00 Acetaminophen (Tylenol) 650 mg PRN Q4HRS PRN PO TEMP OVER 100.4F; Start 05/11/20 at 08:00 Polyethylene Glycol (miraLAX PACKET) 17 gm Q6HRS PO ; Start 05/11/20 at 12:00 Amlodipine Besylate (Norvasc) 10 mg DAILY PO ; Start 05/11/20 at 13:00 Atorvastatin Calcium (Lipitor) 40 mg HS PO ; Start 05/11/20 at 21:00 Lansoprazole (Prevacid) 30 mg DAILY07 PO ; Start 05/11/20 at 13:00 Scopolamine (Transderm-Scop) 1 patch Q3DAYS TD ; Start 05/11/20 at 13:00 Glycerin/ Hypromellose/ Polyethylene (Artificial Tears) 1 drop PRN Q4HRS PRN OU DRY EYE; Start 05/11/20 at 12:15 Citalopram Hydrobromide (CeleXA) 40 mg DAILY PO ; Start 05/11/20 at 13:00 Levetiracetam (Keppra) 500 mg BID PO ; Start 05/11/20 at 13:00 Losartan Potassium (Cozaar) 100 mg PRN DAILY PRN PO hypertension, SBP > 160mmHg; Start 05/11/20 at 12:15 Non-Formulary Medication (Modafinil (Provigil)) 100 mg DAILY GT ; Start 05/12/20 at 09:00; Status UNV Psyllium Hydrophilic Mucilloid (Metamucil Fiber Packet) 1 pkt QHS PO ; Start 05/11/20 at 21:00 Non-Formulary Medication (NON FORMULARY ITEM (Modafinil 100 mg tab)) 1 ea DAILY GT ; Start 2/27/21 at 14:00 Active Scripts Active Konsyl (Psyllium Husk) 6 Gm Packet 6 Gm PO QHS 30 Days Polyethylene Glycol 3350 17 Gm Powd.pack 17 Gm GT PRN DAILY 30 Days Losartan Potassium 100 Mg Tablet 1 Tab PO PRN DAILY PRN 30 Days Reported Levetiracetam 500 Mg/5 Ml Solution 500 Mg PO BID 30 Days Glycopyrrolate 2 Mg Tablet 1 Mg PO HS Amlodipine Besylate 10 Mg Tablet 10 Mg PO DAILY Transderm-Scop (Scopolamine) 1 Each Patch.td72 1 Patch TP Q3DAYS Provigil (Modafinil) 100 Mg Tablet 100 Mg GT DAILY Prevacid (Lansoprazole) 30 Mg Tab.rap.dr 30 Mg DAILY Milk Of Magnesia (Magnesium Hydroxide) 400 Mg/5 Ml Oral.susp 400 Mg GT PRN DAILY PRN Lipitor (Atorvastatin Calcium) 40 Mg Tablet 40 Mg PO HS Lexapro (Escitalopram Oxalate) 20 Mg Tablet 20 Mg PO DAILY Duoneb 0.5 Mg-3 Mg/3 Ml Soln (Ipratropium/Albuterol Sulfate) 3 Ml Ampul.neb 3 Ml IH QIDPRN PRN [colace syrup] 25 Ml GT PRN BID PRN Aspirin 81 Mg Tab.chew 81 Mg PO DAILY Artificial Tears Drops (Dextran 70/Hypromellose/Pf) 1 Each Droperette 1 Each OU PRN Q4HRS PRN Allergies Allergies: Coded Allergies: No Known Drug Allergies (Unverified , 09/30/15) ROS Review of System The patient is not able to give any review of systems. He is aphasic and was unable to communicate whatsoever. Physical Exam General: Other (He was asleep and did not respond to examination of the thigh and knee.) HEENT: Atraumatic Lungs: Normal air movement Heart: Regular rate Abdomen: Soft Extremities: Other (The left thigh is noticeably larger in size than the right but is not severe swelling or compartment syndrome or any evidence of tense hematoma. There is likely a diffuse hematoma in the thigh. There is only trace warmth, and there is no erythema or any focal tenderness and I do not suspect abscess or infection. The knee is slightly warm and does have an effusion which is probably reactive but could be due to a contusion. The area on the medial thigh where the CT scan shows abnormal bone l was examined carefully and I do not see evidence of contusion or injury. Capillary refill and pulses distally seem adequate, without evidence of ischemia or other abnormality.) Skin: Other (Skin over the thigh is intact without obvious ecchymosis. There is no severe pitting edema and no significant discoloration.) Neuro: Other (He has had a prior stroke and is apparently dysfunctional on the right lower extremity. He normally uses the left lower extremity but has been unable to stand or weight-bear on it recently.) Psych/Mental Status: Other (Unable to communicate at this time.) Vitals VITALS Vital Signs Date Time Temp Pulse Resp B/P (MAP) Pulse Ox O2 Delivery O2 Flow Rate FiO2 05/11/20 11:00 99.2 101 18 114/76 (89) 90 Nasal Cannula 2.0 99.2 Labs Labs Laboratory Tests Test 05/10/20 13:15 White Blood Count 5.1 x10^3/uL (4.0-11.0) Red Blood Count 4.24 x10^6/uL (4.30-5.70) Hemoglobin 12.4 g/dL (13.0-17.5) Hematocrit 37.9 % (39.0-53.0) Mean Corpuscular Volume 89 fL (79-100) Mean Corpuscular Hemoglobin 29 pg (25-35) Mean Corpuscular Hemoglobin Concent 33 g/dL (31-37) Red Cell Distribution Width 16.3 % (11.5-14.5) Platelet Count 258 x10^3/uL (140-400) Neutrophils (%) (Auto) 64 % (31-73) Lymphocytes (%) (Auto) 25 % (24-48) Monocytes (%) (Auto) 9 % (0-9) Eosinophils (%) (Auto) 1 % (0-3) Basophils (%) (Auto) 1 % (0-3) Neutrophils # (Auto) 3.2 x10^3/uL (1.8-7.7) Lymphocytes # (Auto) 1.3 x10^3/uL (1.0-4.8) Monocytes # (Auto) 0.4 x10^3/uL (0.0-1.1) Eosinophils # (Auto) 0.1 x10^3/uL (0.0-0.7) Basophils # (Auto) 0.1 x10^3/uL (0.0-0.2) Sodium Level 141 mmol/L (136-145) Potassium Level 3.6 mmol/L (3.5-5.1) Chloride Level 103 mmol/L (98-107) Carbon Dioxide Level 32 mmol/L (21-32) Anion Gap 6 (6-14) Blood Urea Nitrogen 10 mg/dL (8-26) Creatinine 0.7 mg/dL (0.7-1.3) Estimated GFR (Cockcroft-Gault) 140.7 Glucose Level 82 mg/dL (70-99) Calcium Level 8.2 mg/dL (8.5-10.1) Magnesium Level 1.9 mg/dL (1.8-2.4) Laboratory Tests Test 05/10/20 13:15 White Blood Count 5.1 x10^3/uL (4.0-11.0) Red Blood Count 4.24 x10^6/uL (4.30-5.70) Hemoglobin 12.4 g/dL (13.0-17.5) Hematocrit 37.9 % (39.0-53.0) Mean Corpuscular Volume 89 fL (79-100) Mean Corpuscular Hemoglobin 29 pg (25-35) Mean Corpuscular Hemoglobin Concent 33 g/dL (31-37) Red Cell Distribution Width 16.3 % (11.5-14.5) Platelet Count 258 x10^3/uL (140-400) Neutrophils (%) (Auto) 64 % (31-73) Lymphocytes (%) (Auto) 25 % (24-48) Monocytes (%) (Auto) 9 % (0-9) Eosinophils (%) (Auto) 1 % (0-3) Basophils (%) (Auto) 1 % (0-3) Neutrophils # (Auto) 3.2 x10^3/uL (1.8-7.7) Lymphocytes # (Auto) 1.3 x10^3/uL (1.0-4.8) Monocytes # (Auto) 0.4 x10^3/uL (0.0-1.1) Eosinophils # (Auto) 0.1 x10^3/uL (0.0-0.7) Basophils # (Auto) 0.1 x10^3/uL (0.0-0.2) Sodium Level 141 mmol/L (136-145) Potassium Level 3.6 mmol/L (3.5-5.1) Chloride Level 103 mmol/L (98-107) Carbon Dioxide Level 32 mmol/L (21-32) Anion Gap 6 (6-14) Blood Urea Nitrogen 10 mg/dL (8-26) Creatinine 0.7 mg/dL (0.7-1.3) Estimated GFR (Cockcroft-Gault) 140.7 Glucose Level 82 mg/dL (70-99) Calcium Level 8.2 mg/dL (8.5-10.1) Magnesium Level 1.9 mg/dL (1.8-2.4) Images Images Report reviewed and images independently reviewed. The CT scan does show hematoma in the anterior left thigh, without gas or other evidence of infection. There is a periosteal reaction at the distal femur. The most likely source of this would be trauma/contusion and secondary myositis ossificans, but periosteal osteosarcoma cannot be ruled out initially. Per radiology, follow up imaging could be considered. In retrospect on the x-rays subtle calcification in that same area of the distal femoral medial shaft can be seen but I did not see it initially. [facility] [address] [place], [place] [id number] IMAGING REPORT Signed PATIENT: SHELLEY POLANCO ACCOUNT: [id number] : 1960 LOCATION: ER AGE: 59 SEX: M EXAM STATUS: REG ER ORD. PHYSICIAN: TYRELL OLIVEIRA APRN REASON: left thigh swelling, CT venogram, EVAL FOR FRACTURE PROCEDURE: CT ABD PELV W/ IV CONTRST ONLY ADDENDUM #1 ADDENDUM: After reviewing with second radiologist differential consideration for the underlying periosteal calcification at the left distal femoral diaphysis is myositis ossificans which is favored. There is a small possibility of a surface osteosarcoma. Follow-up imaging in 6 weeks to reassess for stability is recommended. FOR INTERNAL CODING PURPOSES Critical result: Findings discussed with Tyrell Oliveira at 05/10/2020 7:23 PM. RESULT CODE: (C) Electronically signed by: Lorenzo Calvo MD (05/10/2020 7:26 PM) [facility] Exam: CT of abdomen and pelvis with contrast INDICATION: Left eye swelling, CT venogram TECHNIQUE: Sequential axial images through the abdomen and pelvis obtained following the administration of 75 mL of Omni 300 IV contrast. Sagittal and coronal reformatted images were reconstructed from the axial data and reviewed. Comparisons: 02/04/2020 FINDINGS: Heart size is normal. No pericardial. Patchy airspace disease at the lung bases bilaterally greater on the right. No pleural effusion. Liver, spleen, pancreas, gallbladder and adrenals are unremarkable. No perinephric inflammation or hydronephrosis. No renal or ureteral calculi are identified. Bladder is decompressed not well evaluated. [place] balloon is noted in the bladder. Prostate is not enlarged. Large amount stool noted throughout the colon. Small bowel is unremarkable. There is a percutaneous gastrostomy tube with balloon in the stomach. No free intra-abdominal air or fluid. No obstruction. Abdominal aorta has a normal course and caliber. Abdominal vasculature is patent. No enlarged intra-abdominal lymph nodes are identified. There is a intramuscular hematoma involving the anterior musculature of the left thigh. No suspicious osseous lesions or acute fractures. IMPRESSION: 1. Intramuscular hematoma involving the anterior musculature of the left thigh measuring approximately 9 x 5 cm. No underlying osseous abnormality. 2. Moderate amount stool noted in the colon, correlate for constipation. 3. Patchy airspace disease at the lungs bilaterally greater on the right may be infectious or inflammatory in etiology. Exposure: One or more of the following in the visualized dose reduction techniques were utilized for this examination: 1. Automated exposure control 2. Adjustment of the MA and/or KV according to patient size 3. Use of iterative of reconstructive technique Electronically signed by: Lorenzo Calvo MD (05/10/2020 6:26 PM) [facility] DICTATED and SIGNED BY: LORENZO CALVO MD DATE: 05/10/201920 Assessment/Plan Assessment/Plan Nontraumatic hematoma of soft tissue M79.81 vs. Contusion of left thigh, initial encounter S70.12XA AND Neoplasm of unspecified behavior of bone, soft tissue, and skin D49.2 vs. Myositis ossificans traumatica, left thigh M61.052 AND Effusion, left knee M25.462 In my opinion the most likely events are that he had some type of injury to the thigh when he was under nursing care, such as banging the leg on a wheelchair or a bed when he was transferring from bed to chair. This can cause significant bleeding into the thigh cince he is on aspirin, and can easily cause myositis ossificans and the periosteal reaction seen on the CT scan. Myositis ossificans is more likely in patients with head injury/stroke. A knee effusion is also consistent with some type of thigh contusion. It is difficult to get a complete history because of the patient's status, and there is no definitive injury reported. The differential would include an underlying neoplasm of the femur such as a periosteal sarcoma, and reactive knee effusion. In my opinion that diagnosis is much less likely but follow-up imaging would be useful of the distal femur. There is no evidence of infection, and I do not see compartment syndrome. The thigh hematoma should resolve with time. I would continue low-dose aspirin, as the thigh hematoma and the immobilization are risk factors for thrombosis. He also has a knee effusion. I recommend aspiration and probably cortisone injection if the aspirate is benign. I will order those to be done tomorrow, by me at the bedside. I would use ice and other modalities such as Jaylen wrap for the thigh swelling and I expect the hematoma will resolve with time. YARED ALMAZAN MD May 11, 2020 13:04
[2020-05-11] MEDS: levETIRAcetam 500 MG TABLET PO SCH ×2 (14:14→20:30)
[2020-05-11] MEDS: CITALOPRAM 20 MG TABLET. PO SCH (14:14)
[2020-05-11] MEDS: amLODIPine BESYLATE 10 MG TABLET PO SCH (14:15)
[2020-05-11] MEDS: MODAFINIL 100 MG GT SCH (14:15)
[2020-05-11] MEDS: LANSOPRAZOLE 30 MG TAB.RAP.DR PO SCH (14:15)
[2020-05-11] MEDS: SCOPOLAMINE 1.5MG PATCH. TD SCH (14:16)
[2020-05-11 15:00] VITALS: BP 118/72
[2020-05-11] MEDS ORDERED: methylPREDNISolone ACETATE 80 MG/ML VIAL. IM ONE (15:00)
[2020-05-11] MEDS ORDERED: LIDOCAINE 1% Multi-Dose 20 ML VIAL. INJ ONE (15:00)
[2020-05-11 19:00] VITALS: BP 96/56
[2020-05-11] MEDS: PSYLLIUM HUSK (SUGAR FREE) 1 PKT PACKET PO SCH (20:30)
[2020-05-11] MEDS: ATORVASTATIN CALCIUM 40 MG TABLET. PO SCH (20:30)
[2020-05-11 23:00] VITALS: BP 94/61
[2020-05-12] MEDS: IV NORMAL SALINE 1000ML BAG 1,000 ML IV SCH ×2 (00:21→13:06)
[2020-05-12 03:00] VITALS: BP 91/64
[2020-05-12 07:00] VITALS: BP 126/80
[2020-05-12] MEDS: LANSOPRAZOLE 30 MG TAB.RAP.DR PO SCH (07:25)
[2020-05-12 07:28] LABS: BASO % 1 % (0-3); EOS # 0.1 x10^3/uL (0.0-0.7); EOS % 1 % (0-3); HEMATOCRIT 32.1 % (39.0-53.0); HEMOGLOBIN 10.4 g/dL (13.0-17.5); LYMPH # 1.4 x10^3/uL (1.0-4.8); LYMPH % 26 % (24-48); MEAN CORPUSCULAR HEMOGLOBIN 29 pg (25-35); MEAN CORPUSCULAR HGB CONC 32 g/dL (31-37); MEAN CORPUSCULAR VOLUME 89 fL (79-100); MONO # 0.5 x10^3/uL (0.0-1.1); MONO % 10 % (0-9); NEUT # 3.3 x10^3/uL (1.8-7.7); NEUT % 62 % (31-73); PLATELET COUNT 287 x10^3/uL (140-400); RED BLOOD COUNT 3.62 x10^6/uL (4.30-5.70); RED CELL DISTRIBUTION WIDTH 16.1 % (11.5-14.5); WHITE BLOOD COUNT 5.3 x10^3/uL (4.0-11.0)
[2020-05-12 07:57] LABS: CALCIUM 8.3 mg/dL (8.5-10.1); CREATININE 0.7 mg/dL (0.7-1.3); GFR 140.7; MAGNESIUM 1.8 mg/dL (1.8-2.4); PHOSPHORUS 3.1 mg/dL (2.6-4.7)
[2020-05-12] MEDS ORDERED: MODAFINIL 100 MG GT SCH (09:00)
[2020-05-12] MEDS: CITALOPRAM 20 MG TABLET. PO SCH (10:32)
[2020-05-12] MEDS: MODAFINIL 100 MG GT SCH (10:32)
[2020-05-12] MEDS: amLODIPine BESYLATE 10 MG TABLET PO SCH (10:32)
[2020-05-12] MEDS: levETIRAcetam 500 MG TABLET PO SCH ×2 (10:33→23:02)
--- NOTE | 2020-05-12 10:34 | PDOC ---
[facility] PROGRESS NOTE Date of Service DOS: DATE: 05/12/20 TIME: 10:32 Chief Complaint Chief Complaint Left thigh intramuscular hematoma Constipation History of CVA with residual weakness PEG tube Bedbound status Debilitation Hypokalemia Admit to medicine for further management IV electrolyte replacement Orthopedic consult Every 2 hours neurovascular checks PT OT Nutrition consult for tube feedings MiraLAX every 6 hours until bowel movement. Continue low-dose aspirin Lovenox for DVT prophylaxis Protonix GI prophylaxis ADA diet Full code Discussed with RN and SW Disposition inpatient management as above Surrogate decision maker is the mom History of Present Illness History of Present Illness 05/04/2020 No acute events overnight. Plan for knee injection aspiration today with Ortho. Patient's chart, labs, images were reviewed and discussed with RN 59 year old AA male, accompanied by his mother, with complaints of left thigh swelling since being discharged from an acute rehab facility on April 242020. Mother reports that the patient suffered a stroke several years ago and has limited speech and mobility since then. She denies any reported falls or trauma. She states that the patient complains of his left leg hurting. She has noticed that the left thigh is swollen and feels warm to touch. Patient's mother reports that no injury was ever reported to her. Mother states that the patient has had some sweats but denies any fever, cough, nausea, vomiting, diarrhea, rash, bruising, or altered LOC. Vitals/I&O Vitals/I&O: Vital Signs Date Time Temp Pulse Resp B/P (MAP) Pulse Ox O2 Delivery O2 Flow Rate FiO2 05/12/20 07:00 99.2 82 16 126/80 (95) 92 Nasal Cannula 1.0 99.2 I & O 05/11/20 05/11/20 05/12/20 15:00 23:00 07:00 Intake Total 1440 ml Output Total 350 ml 225 ml Balance -350 ml 1215 ml Physical Exam General: Alert, Cooperative, Other (He was asleep and did not respond to examination of the thigh and knee.) Heart: Regular rate Lungs: Wheezing, Crackles Abdomen: Soft Extremities: No edema, Other (The left thigh is noticeably larger in size than the right but is not severe swelling or compartment syndrome or any evidence of tense hematoma. There is likely a diffuse hematoma in the thigh. There is only trace warmth, and there is no erythema or any focal tenderness and I do not suspect abscess or infection. The knee is slightly warm and does have an effusion which is probably reactive but could be due to a contusion. The area on the medial thigh where the CT scan shows abnormal bone l was examined carefully and I do not see evidence of contusion or injury. Capillary refill and pulses distally seem adequate, without evidence of ischemia or other abnormality.) Skin: Other (Skin over the thigh is intact without obvious ecchymosis. There is no severe pitting edema and no significant discoloration.) Labs Labs: Laboratory Tests Test 05/12/20 06:05 White Blood Count 5.3 x10^3/uL (4.0-11.0) Red Blood Count 3.62 x10^6/uL (4.30-5.70) Hemoglobin 10.4 g/dL (13.0-17.5) Hematocrit 32.1 % (39.0-53.0) Mean Corpuscular Volume 89 fL (79-100) Mean Corpuscular Hemoglobin 29 pg (25-35) Mean Corpuscular Hemoglobin Concent 32 g/dL (31-37) Red Cell Distribution Width 16.1 % (11.5-14.5) Platelet Count 287 x10^3/uL (140-400) Neutrophils (%) (Auto) 62 % (31-73) Lymphocytes (%) (Auto) 26 % (24-48) Monocytes (%) (Auto) 10 % (0-9) Eosinophils (%) (Auto) 1 % (0-3) Basophils (%) (Auto) 1 % (0-3) Neutrophils # (Auto) 3.3 x10^3/uL (1.8-7.7) Lymphocytes # (Auto) 1.4 x10^3/uL (1.0-4.8) Monocytes # (Auto) 0.5 x10^3/uL (0.0-1.1) Eosinophils # (Auto) 0.1 x10^3/uL (0.0-0.7) Basophils # (Auto) 0.0 x10^3/uL (0.0-0.2) Sodium Level 142 mmol/L (136-145) Potassium Level 3.0 mmol/L (3.5-5.1) Chloride Level 106 mmol/L (98-107) Carbon Dioxide Level 28 mmol/L (21-32) Anion Gap 8 (6-14) Blood Urea Nitrogen 12 mg/dL (8-26) Creatinine 0.7 mg/dL (0.7-1.3) Estimated GFR (Cockcroft-Gault) 140.7 Glucose Level 92 mg/dL (70-99) Calcium Level 8.3 mg/dL (8.5-10.1) Phosphorus Level 3.1 mg/dL (2.6-4.7) Magnesium Level 1.8 mg/dL (1.8-2.4) Assessment and Plan Assessmemt and Plan Problems Medical Problems: (1) Hematoma of left thigh Status: Acute (2) Intractable pain Status: Acute Comment Review of Relevant I have reviewed the following items madelyn (where applicable) has been applied. Medications: Current Medications Medications (Trade) Dose Ordered Sig/Vin Route PRN Reason Start Time Stop Time Status Last Admin Dose Admin Amlodipine Besylate (Norvasc) 10 mg DAILY PO 05/11/20 13:00 05/11/20 14:15 Atorvastatin Calcium (Lipitor) 40 mg HS PO 05/11/20 21:00 05/11/20 20:30 Lansoprazole (Prevacid) 30 mg DAILY07 PO 05/11/20 13:00 05/12/20 07:25 Scopolamine (Transderm-Scop) 1 patch Q3DAYS TD 05/11/20 13:00 05/11/20 14:16 Citalopram Hydrobromide (CeleXA) 40 mg DAILY PO 05/11/20 13:00 05/11/20 14:14 Levetiracetam (Keppra) 500 mg BID PO 05/11/20 13:00 05/11/20 20:30 Psyllium Hydrophilic Mucilloid (Metamucil Fiber Packet) 1 pkt QHS PO 05/11/20 21:00 05/11/20 20:30 Non-Formulary Medication (NON FORMULARY ITEM (Modafinil 100 mg tab)) 1 ea DAILY GT 05/11/20 14:00 05/11/20 14:15 Justifications for Admission Other Justification Left thigh hematoma ANTON PEREZ MD May 12, 2020 10:34
[2020-05-12 11:00] VITALS: BP 112/72
[2020-05-12 15:00] VITALS: BP 89/60
[2020-05-12 19:00] VITALS: BP 88/61
[2020-05-12 23:00] VITALS: BP 93/66
[2020-05-12] MEDS: ATORVASTATIN CALCIUM 40 MG TABLET. PO SCH (23:02)
[2020-05-12] MEDS: PSYLLIUM HUSK (SUGAR FREE) 1 PKT PACKET PO SCH (23:02)
[2020-05-13 03:00] VITALS: BP 94/60
[2020-05-13] MEDS: IV NORMAL SALINE 1000ML BAG 1,000 ML IV SCH ×2 (04:58→17:59)
[2020-05-13 07:26] VITALS: BP 103/70
[2020-05-13] MEDS: LANSOPRAZOLE 30 MG TAB.RAP.DR PO SCH (08:08)
--- NOTE | 2020-05-13 08:12 | PDOC ---
[facility] PROGRESS NOTE Date of Service DOS: DATE: 05/13/20 TIME: 08:08 Chief Complaint Chief Complaint Left thigh intramuscular hematoma Constipation History of CVA with residual weakness PEG tube Bedbound status Debilitation Hypokalemia Functional quadriplegia Admit to medicine for further management IV electrolyte replacement Orthopedic consult Every 2 hours neurovascular checks PT OT Nutrition consult for tube feedings MiraLAX every 6 hours until bowel movement. Continue low-dose aspirin Lovenox for DVT prophylaxis Protonix GI prophylaxis ADA diet Full code Discussed with RN and SW Disposition inpatient management as above Surrogate decision maker is the mom History of Present Illness History of Present Illness 05/13/2020 Afebrile, breathing 2 L nasal cannula. Charts, labs, imaging reviewed. Recommended to continue low-dose aspirin due to risk of thrombosis, and hematoma should resolve with time. Orthopedic surgery to perform bedside knee aspiration. Discussed with patient's mother, he may discharge after knee aspira tion. Continue Jaylen wraps and ice for resolution of hematoma. 05/12/2020 No acute events overnight. Plan for knee injection aspiration today with Ortho. Patient's chart, labs, images were reviewed and discussed with RN 59 year old AA male, accompanied by his mother, with complaints of left thigh swelling since being discharged from an acute rehab facility on April 242020. Mother reports that the patient suffered a stroke several years ago and has limited speech and mobility since then. She denies any reported falls or trauma. She states that the patient complains of his left leg hurting. She has noticed that the left thigh is swollen and feels warm to touch. Patient's mother reports that no injury was ever reported to her. Mother states that the patient has had some sweats but denies any fever, cough, nausea, vomiting, diarrhea, rash, bruising, or altered LOC. Vitals/I&O Vitals/I&O: Vital Signs Date Time Temp Pulse Resp B/P (MAP) Pulse Ox O2 Delivery O2 Flow Rate FiO2 05/13/20 07:26 98.3 76 18 103/70 (81) 93 Nasal Cannula 2.0 98.3 I & O 05/12/20 05/12/20 05/13/20 15:00 23:00 07:00 Intake Total 440 ml 540 ml 1360 ml Output Total 950 ml Balance 440 ml 540 ml 410 ml Physical Exam General: Alert, Cooperative, Other (He was asleep and did not respond to examination of the thigh and knee.) Heart: Regular rate Lungs: Wheezing, Crackles Abdomen: Soft Extremities: No edema, Other (The left thigh is noticeably larger in size than the right but is not severe swelling or compartment syndrome or any evidence of tense hematoma. There is likely a diffuse hematoma in the thigh. There is only trace warmth, and there is no erythema or any focal tenderness and I do not mathews spect abscess or infection. The knee is slightly warm and does have an effusion which is probably reactive but could be due to a contusion. The area on the medial thigh where the CT scan shows abnormal bone l was examined carefully and I do not see evidence of contusion or injury. Capillary refill and pulses distally seem adequate, without evidence of ischemia or other abnormality.) Skin: Other (Skin over the thigh is intact without obvious ecchymosis. There is no severe pitting edema and no significant discoloration.) Assessment and Plan Assessmemt and Plan Problems Medical Problems: (1) Hematoma of left thigh Status: Acute (2) Intractable pain Status: Acute Comment Review of Relevant I have reviewed the following items madelyn (where applicable) has been applied. Justifications for Admission Other Justification Left thigh hematoma MICHELLE ADAM MD May 13, 2020 08:12
[2020-05-13] MEDS: amLODIPine BESYLATE 10 MG TABLET PO SCH (09:00)
[2020-05-13] MEDS ORDERED: POTASSIUM BICARB 20 MEQ EFFERVESCENT TABLET. PEG ONE (09:15)
[2020-05-13 10:33] VITALS: BP 93/66
[2020-05-13] MEDS: levETIRAcetam 500 MG TABLET PO SCH ×2 (11:14→20:50)
[2020-05-13] MEDS: CITALOPRAM 20 MG TABLET. PO SCH (11:16)
[2020-05-13] MEDS: MODAFINIL 100 MG GT SCH (12:55)
[2020-05-13 15:00] VITALS: BP 95/65
[2020-05-13] MEDS ORDERED: LIDOCAINE 1% Multi-Dose 20 ML VIAL. INJ ONE (16:15)
--- NOTE | 2020-05-13 16:22 | PDOC4 ---
PROCEDURE Procedure Written consent was previously obtained. The skin was cleansed and prepared in sterile fashion with a chlorhexidine swab. Three mL of 1% lidocaine was used for skin and subcutaneous and capsular anesthesia. A timeout was performed with the nurse Teddy. I aspirated the left knee joint under sterile technique and retrieved 8 mL slightly bloody transparent yellow synovial fluid from the knee joint. I injected the knee with 80 mg of Depo-Medrol and 1 cc of 1% lidocaine, under sterile technique. The patient tolerated the procedure well. A Band-Aid was placed. YARED ALMAZAN MD May 13, 2020 16:21
--- NOTE | 2020-05-13 16:58 | NUR ---
Wound Care Wound Type/Assessment: Consult to eval and treat wounds to toes of R foot present on admission. Pictures and measurements present in chart. Unstageable Wound to R 2nd toe fluctuant with small amount of purulent drainage, wound bed pink and sloughy, with rolled/undermined margins. Due to anatomy and size of wound, unable to accurately visualize exposed structures (Occurrence #1 Assessment). Unstageable wound to R lateral foot (Occurrence #2) with soft nichols/yellow eschar covering wound bed. Margins bright red. No other open wound present on head to toe inspection. Treatment Recommendations/Plan: R toe/foot: Cleanse and pat dry. apply a small piece of iodoflex with white mesh removed, cover with telfa bandaid. Change every 2-3 days Education provided: Pt inappropriate for education due to mental status Offloading surface/device: Pt on hospital bed with purple wedge for positioning, heel medix boots to bilateral feet, and pillows for comfort. Recommended Referrals/Tests: NA Discharge Recommendations for dressings: As above
[2020-05-13 19:00] VITALS: BP 106/64
[2020-05-13] MEDS: ATORVASTATIN CALCIUM 40 MG TABLET. PO SCH (20:50)
[2020-05-13] MEDS: PSYLLIUM HUSK (SUGAR FREE) 1 PKT PACKET PO SCH (20:50)
[2020-05-13 23:00] VITALS: BP 102/69
[2020-05-14 03:00] VITALS: BP 106/71
[2020-05-14] MEDS: IV NORMAL SALINE 1000ML BAG 1,000 ML IV SCH (04:44)
[2020-05-14] MEDS: LANSOPRAZOLE 30 MG TAB.RAP.DR PO SCH (04:44)
[2020-05-14 07:22] VITALS: BP 97/63
[2020-05-14] MEDS: amLODIPine BESYLATE 10 MG TABLET PO SCH (08:24)
[2020-05-14] MEDS: MODAFINIL 100 MG GT SCH (09:00)
[2020-05-14] MEDS: levETIRAcetam 500 MG TABLET PO SCH (09:53)
[2020-05-14] MEDS: CITALOPRAM 20 MG TABLET. PO SCH (09:53)
[2020-05-14] MEDS: SCOPOLAMINE 1.5MG PATCH. TD SCH (09:54)
--- NOTE | 2020-05-14 10:00 | PDOC ---
[facility] PROGRESS NOTE Date of Service DOS: DATE: 05/14/20 TIME: 09:59 Chief Complaint Chief Complaint Left thigh intramuscular hematoma Constipation History of CVA with residual weakness PEG tube Bedbound status Debilitation Hypokalemia Functional quadriplegia Admit to medicine for further management IV electrolyte replacement Orthopedic consult Every 2 hours neurovascular checks PT OT Nutrition consult for tube feedings MiraLAX every 6 hours until bowel movement. Continue low-dose aspirin Lovenox for DVT prophylaxis Protonix GI prophylaxis ADA diet Full code Discussed with RN and SW Disposition inpatient management as above Surrogate decision maker is the mom History of Present Illness History of Present Illness 05/14/2020 Had aspiration of left knee joint with steroid injection. Tolerated procedure well, no acute vents overnight. Continue Jaylen wrap and ice compression for hematoma. Greater than 30 minutes spent managing the discharge of this patient. 05/13/2020 Afebrile, breathing 2 L nasal cannula. Charts, labs, imaging reviewed. Recommended to continue low-dose aspirin due to risk of thrombosis, and hematoma should resolve with time. Orthopedic surgery to perform bedside knee aspiration. Discussed with patient's mother, he may discharge after knee aspiration. Continue Jaylen wraps and ice for resolution of hematoma. 05/12/2020 No acute events overnight. Plan for knee injection aspiration today with Ortho. Patient's chart, labs, images were reviewed and discussed with RN 59 year old AA male, accompanied by his mother, with complaints of left thigh swelling since being discharged from an acute rehab facility on April 242020. Mother reports that the patient suffered a stroke several years ago and has limited speech and mobility since then. She denies any reported falls or trauma. She states that the patient complains of his left leg hurting. She has noticed that the left thigh is swollen and feels warm to touch. Patient's mother reports that no injury was ever reported to her. Mother states that the patient has had some sweats but denies any fever, cough, nausea, vomiting, diarrhea, rash, bruising, or altered LOC. Vitals/I&O Vitals/I&O: Vital Signs Date Time Temp Pulse Resp B/P (MAP) Pulse Ox O2 Delivery O2 Flow Rate FiO2 05/14/20 08:24 94 97/63 05/14/20 07:22 98.4 18 87 Nasal Cannula 2.0 98.4 I & O 05/13/20 05/13/20 05/14/20 14:59 22:59 06:59 Intake Total 844 ml 1346 ml 437 ml Output Total 750 ml 650 ml Balance 844 ml 596 ml -213 ml Physical Exam General: Alert, Cooperative, Other (He was asleep and did not respond to examination of the thigh and knee.) Heart: Regular rate Lungs: Wheezing, Crackles Abdomen: Soft Extremities: No edema, Other (The left thigh is noticeably larger in size than the right but is not severe swelling or compartment syndrome or any evidence of tense hematoma. There is likely a diffuse hematoma in the thigh. There is only trace warmth, and there is no erythema or any focal tenderness and I do not suspect abscess or infection. The knee is slightly warm and does have an effusion which is probably reactive but could be due to a contusion. The area on the medial thigh where the CT scan shows abnormal bone l was examined carefully and I do not see evidence of contusion or injury. Capillary refill and pulses distally seem adequate, without evidence of ischemia or other abnormality.) Skin: Other (Skin over the thigh is intact without obvious ecchymosis. There is no severe pitting edema and no significant discoloration.) Assessment and Plan Assessmemt and Plan Problems Medical Problems: (1) Hematoma of left thigh Status: Acute (2) Intractable pain Status: Acute Comment Review of Relevant I have reviewed the following items madelyn (where applicable) has been applied. Justifications for Admission Other Justification Left thigh hematoma MICHELLE ADAM MD May 14, 2020 10:00
[2020-05-14 10:51] VITALS: BP 102/68
--- NOTE | 2020-05-14 13:26 | PDOC3 ---
Discharge Summary Visit Information Date of Admission: May 10, 2020 Date of Discharge: May 14, 2020 Final Diagnosis Problems Medical Problems: (1) Hematoma of left thigh Status: Acute (2) Intractable pain Status: Acute Brief Hospital Course Allergies Allergies Coded Allergies Type Severity Reaction Last Updated Verified No Known Drug Allergies 09/30/15 No Vital Signs Vital Signs Date Time Temp Pulse Resp B/P (MAP) Pulse Ox O2 Delivery O2 Flow Rate FiO2 05/14/20 10:51 98.8 71 18 102/68 (79) 93 Nasal Cannula 2.0 98.8 Brief Hospital Course Mr. Georges is a 59 old male who presented with left thigh hematoma and left knee effusion. Consultation request orthopedic surgery. Had aspiration of left knee joint with steroid injection. He was recommended to continue Jaylen wrap and ice compression for thigh hematoma and continue low-dose aspirin due to risk of thrombosis, and hematoma should resolve with time. Discussed with patient's mother, he will discharge home with family care. Discharge Information Condition at Discharge: Improved Follow Up: Weeks Disposition/Orders: D/C to Home Scheduled Amlodipine Besylate (Amlodipine Besylate) 10 Mg Tablet, 10 MG PO DAILY for high bp, (Reported) Entered as Reported by: BRANDON THORPE on 05/30/18 040 Last Action: Continued on 05/11/201158 by ANTON PEREZ MD Aspirin (Aspirin) 81 Mg Tab.chew, 81 MG PO DAILY, (Reported) Entered as Reported by: ROMMEL MACIEL on 08/01/13921 Last Action: HELD on 05/11/201158 by ANTON PEREZ MD Atorvastatin Calcium (Lipitor) 40 Mg Tablet, 40 MG PO HS, (Reported) Entered as Reported by: ROMMEL MACIEL on 08/01/13925 Last Action: Continued on 05/11/201158 by ANTON PEREZ MD Escitalopram Oxalate (Lexapro) 20 Mg Tablet, 20 MG PO DAILY, (Reported) Entered as Reported by: ROMMEL MACIEL on 08/01/13925 Last Action: Converted on 05/11/201158 by ANTON PEREZ MD Glycopyrrolate (Glycopyrrolate) 2 Mg Tablet, 1 MG PO HS for secretions, (Reported) Entered as Reported by: PEDRO GRADY on 06/10/19 0127 Last Action: HELD on 05/11/201158 by ANTON PEREZ MD Lansoprazole (Prevacid) 30 Mg Tab.rap.dr, 30 MG DAILY, (Reported) Entered as Reported by: ROMMEL MACIEL on 08/01/13929 Last Action: Continued on 05/11/201158 by ANTON PEREZ MD Levetiracetam (Levetiracetam) 500 Mg/5 Ml Solution, 500 MG PO BID for seizures for 30 Days, #120 (Reported) Entered as Reported by: MERY JACINTO on 01/02/20 1434 Last Action: Converted on 05/11/201158 by ANTON PEREZ MD Modafinil (Provigil) 100 Mg Tablet, 100 MG GT DAILY, (Reported) Entered as Reported by: ROMMEL MACIEL on 08/01/1330 Last Action: Converted on 05/11/201158 by ANTON PEREZ MD Polyethylene Glycol 3350 (Polyethylene Glycol 3350) 17 Gm Powd.pack, 17 GM GT PRN DAILY for constipation for 30 Days, #30 Ref 11 Prescribed by: DENIA RENDON MD on 11/29/18 142 Last Action: Reviewed on 05/11/20 05 by BRIDGET GUZMAN Psyllium Husk (Konsyl) 6 Gm Packet, 6 GM PO QHS for constipation for 30 Days, #30 Ref 11 Prescribed by: DENIA RENDON MD on 11/29/18 142 Last Action: Converted on 05/11/201158 by ANTON PEREZ MD Scopolamine (Transderm-Scop) 1 Each Patch.td72, 1 PATCH TP Q3DAYS for secretions, #4 (Reported) Entered as Reported by: Tameka Mitchell on 03/01/18 0443 Last Action: Continued on 05/11/201158 by ANTON PEREZ MD Scheduled PRN Dextran 70/Hypromellose/Pf (Artificial Tears Drops) 1 Each Droperette, 1 EACH OU PRN Q4HRS PRN for DRY EYE, (Reported) Entered as Reported by: ROMMEL MACIEL on 08/01/13 0922 Last Action: Converted on 05/11/201158 by ANTON PEREZ MD Ipratropium/Albuterol Sulfate (Duoneb 0.5 Mg-3 Mg/3 Ml Soln) 3 Ml Ampul.neb, 3 ML IH QIDPRN PRN for SHORTNESS OF BREATH, (Reported) Entered as Reported by: ROMMEL MACIEL on 08/01/13924 Last Action: Reviewed on 05/11/20553 by BRIDGET GUZMAN Losartan Potassium (Losartan Potassium) 100 Mg Tablet, 1 TAB PO PRN DAILY PRN for hypertension, SBP > 160mmHg for 30 Days, #30 Prescribed by: DENIA RENDON MD on 11/29/18 1422 Last Action: Converted on 05/11/20 1159 by ANTON PEREZ MD Magnesium Hydroxide (Milk Of Magnesia) 400 Mg/5 Ml Oral.susp, 400 MG GT PRN DAILY PRN for CONSTIPATION, (Reported) Entered as Reported by: ROMMEL MACIEL on 08/01/13927 Last Action: Reviewed on 05/11/20553 by BRIDGET GUZMAN [colace syrup] , 25 ML GT PRN BID PRN for CONSTIPATION, (Reported) Entered as Reported by: ROMMEL MACIEL on 08/01/13923 Last Action: Reviewed on 05/11/20553 by BRIDGET GUZMAN Justicifation of Admission Dx: Justifications for Admission: Justification of Admission Dx: N/A MICHELLE ADAM MD May 14, 2020 13:26
--- NOTE | 2020-05-14 14:08 | NUR ---
Discharge order received, attempted to call pts mother Rosa @[phone] and [phone]. Voicemail left on both numbers.
[2020-05-14 14:29] VITALS: BP 129/72
[2020-05-14] MEDS ORDERED: methylPREDNISolone ACETATE 80 MG/ML VIAL. ONE (15:00)
[2020-05-14] MEDS ORDERED: LIDOCAINE 1% Multi-Dose 20 ML VIAL. ONE (15:00)
--- NOTE | 2020-05-14 16:02 | NUR ---
Discharge instructions given to mother, v/u. Patient escorted out via gurney by EMS personnel. Addendum: 05/14/20 at 1604 by JACEK MELVIN RN RN Wheelchair and patients meds returned to patients brother.
== END 2020-05-14 16:04 | disposition home or self-care (01) | DRG 604 ==
LOC: ER 12:10 → 4 NORTH 19:08
PROVIDERS: ADMIT Family Medicine; ATTEND Family Medicine
PROC: 0S9D3ZX Drainage of Left Knee Joint, Percutaneous Approach, Diagnostic (ICD-10-PCS; principal; 2020-05-13)
PROC: 3E0U33Z Introduction of Anti-inflammatory into Joints, Percutaneous Approach (ICD-10-PCS; 2020-05-13)
PROC: 3E0U3BZ Introduction of Anesthetic Agent into Joints, Percutaneous Approach (ICD-10-PCS; 2020-05-13)
DX: S70.12XA Contusion of left thigh, initial encounter (principal); R53.2 Functional quadriplegia; E87.6 Hypokalemia; K21.9 Gastro-esophageal reflux disease without esophagitis; K59.00 Constipation, unspecified; E78.5 Hyperlipidemia, unspecified; D49.2 Neoplasm of unspecified behavior of bone, soft tissue, and skin; M61.9 Calcification and ossification of muscle, unspecified; Z20.822 Contact with and (suspected) exposure to COVID-19; E78.00 Pure hypercholesterolemia, unspecified; I10 Essential (primary) hypertension; I69.398 Other sequelae of cerebral infarction; Y93.89 Activity, other specified; Y92.89 Other specified places as the place of occurrence of the external cause; Y99.8 Other external cause status; I69.320 Aphasia following cerebral infarction; Z74.01 Bed confinement status; Z82.49 Family history of ischemic heart disease and other diseases of the circulatory system
CPT/HCPCS: 36415; 73502; 73560; 74177; 80048; 83735; 84100; 85025; 93926; 93971; J1040; J3490; J7030; Q9967; 99285-25; G0378

== ENCOUNTER → 2021-07-25 | Outpatient (CLI) | payer OTHER ==
[~2021-07-25] VITALS: Ht 182.9 cm; Wt 59.0 kg
[~2021-07-25] MED LIST changes: +IOHEXOL 240 MG/ML 50ML VIAL. ONE; +IOHEXOL 240 MG/ML 50ML VIAL. PO ONE; +LACT1CAP12 PO; +OMEP40CA7 PO; -SCOP1PAT11 TD; -SCOP1PAT11 TP; +SCOP1PAT12 TD; +SCOP1PAT12 TP
[2021-07-25 08:18] VITALS: BP 112/82
--- NOTE | 2021-07-25 09:16 | NUR ---
Pt to IR for GI tube change. Pt with established track, no sedation used, pt tolerated without difficulty. 24FR Kangaroo tube in place. KOREY RN
--- NOTE | 2021-07-25 10:19 | RAD ---
PROCEDURE: Gastrostomy CATHETER EXCHANGE(CPT 45066) INDICATION: Routine exchange of the gastrostomy tube. Flouroscopy-Radiation exposure: Kerma Air Product (in mGycm2): 1 Contrast: 5 mL of Omnipaque 300 SEDATION: No sedation Current history and physical and other medical records are reviewed prior to the procedure. CONSENT: Informed consent was obtained. The risks, benefits, potential complications and alternatives were reviewed and all questions answered. Estimated blood loss: 30 ml TECHNIQUE: Risks, benefits, and alternatives were explained to the patient and informed consent was obtained. T he patient was prepped with maximum sterile techniques and barriers including cap, mask, gown, hand h ygiene, sterile gloves, and cutaneous antisepsis were utilized. Under fluoroscopy, a stiff guidewire is inserted through the existing tube then the pre-existing gas trostomy catheter was exchanged for a new 24-Citizen [place] gastrostomy catheter. Contrast was injected, con firming appropriate placement within the gastric body. The retention balloon was inflated with 15 mL saline. The patient tolerated the procedure well. FINDINGS: Final fluoroscopic images demonstrate appropriate placement of the gastrostomy tube with the distal t ip located in the stomach. IMPRESSION: Successful gastrostomy tube exchange. Electronically signed by: Jonel Rebolledo MD (07/25/2021 10:16 AM) [id number]
== END | disposition home or self-care (01) ==
LOC: INTRAD 07:16
PROVIDERS: ATTEND Surgery
DX: Z43.1 Encounter for attention to gastrostomy (principal); R13.10 Dysphagia, unspecified; K21.9 Gastro-esophageal reflux disease without esophagitis; I10 Essential (primary) hypertension; E78.00 Pure hypercholesterolemia, unspecified; F32.9 Major depressive disorder, single episode, unspecified; Z98.890 Other specified postprocedural states; Z79.899 Other long term (current) drug therapy; Z86.73 Personal history of transient ischemic attack (TIA), and cerebral infarction without residual deficits
CPT/HCPCS: 49450; B4087; C1769; Q9966